=== PATIENT | female | born 1965 | race Caucasian/White ===

== ENCOUNTER 2020-08-14 23:16 | Emergency (ER) | payer BC, SELFPAY ==
[2020-08-14 23:34] VITALS: BP 163/106; PULSE 95; RESP 16; TEMP 36.4; O2SAT 95
[2020-08-14 23:58] LABS: Basophils Percent Auto 0.2 % (0.2-1.2); Eosinophils Percent Auto 0.6 % (0-4.4); Hematocrit 39.4 % (37.0-47.0); Hemoglobin 13.2 g/dL (12.0-15.0); Immature Granulocyte Absolute 0.14 K/mm3 (0.00-0.031); Immature Granulocyte Percent A 2.8 % (0-0.5); Lymphocytes Percent Auto 32.5 % (18.3-44.2); Mean Corpuscular HGB Conc 33.5 g/dl (32-36); Mean Corpuscular Hemoglobin 29.4 pg (26-34); Mean Corpuscular Volume 87.8 fl (80-100); Mean Platelet Volume 8.9 fl (7.4-10.4); Monocytes Absolute Auto 0.6 K/mm3 (0.1-0.6); Monocytes Percent Auto 12.6 % (2.6-8.5); Neutrophils Absolute Auto 2.5 K/mm3 (1.3-6.7); Neutrophils Percent Auto 51.3 % (45.5-73.1); Platelet Count Result 300 k/mm3 (150-375); Red Blood Count 4.49 M/mm3 (4.2-5.4); Red Cell Distribution Width 11.8 % (11.5-14.5); White Blood Count 4.9 K/mm3 (4.5-10.0)
[2020-08-15 00:11] LABS: Alanine Aminotransferase 105 U/L (4-35); Alkaline Phosphatase 148 U/L (38-126); Anion Gap 4 mmol/L (8-16); Aspartate Amino Transferase 84 U/L (14-36); Bilirubin,Total 0.5 mg/dL (0.2-1.3); Blood Urea Nitrogen 15 mg/dL (7-17); Calcium 8.9 mg/dL (8.4-10.2); Carbon Dioxide 31 mmol/L (22-30); Chloride 104 mmol/L (98-107); Estimated CRCL calculation 86 ml/min; Estimated Glomerular Filt Rate > 60; Glucose 107 mg/dL (65-105); Lipase 106 U/L (23-300); Potassium 3.8 mmol/L (3.4-5.0); Sodium 139 mmol/L (137-145)
[2020-08-15 00:13] LABS: Atypical Lymphocytes Present; Platelet Estimate Adequate (Adequate)
[2020-08-15 00:15] LABS: Add Urine Microscopic? YES; Amorphous Sediment Urine Few; Appearance Urine Cloudy (Clear); Bacteria Urine Trace /hpf; Bilirubin Urine Negative (Negative); Blood Urine Negative (Negative); Color Urine Yellow (Yellow); Glucose Urine UA Negative (Negative); Ketones Urine Negative (Negative); Leukocyte Esterase Ur 2+ LEU/UL (Negative); Mucus Urine Heavy /lpf; Nitrate Urine Negative (Negative); Protein Urine 1+ mg/dL (Negative); RBC Urine 21-50 /hpf (0-2); Specific Grav Ur 1.024 (1.001-1.035); Squamous Epithelial Cell Urine Many /hpf (Few)
--- NOTE | 2020-08-15 00:36 | ED.ABDPAIN ---
HPI - Abdominal Pain General Chief Complaint: Abdominal Pain Stated Complaint: nausea/vomiting Time Seen by Provider: 08/15/20 00:28 Source: patient and family Mode of arrival: ambulatory Limitations: no limitations History of Present Illness HPI narrative: 55-year-old with a history of GERD diagnosed with gout approximately 2 weeks ago here with complaints of nausea. Patient states that earlier she was about to vomit noticed little blood in vomitus she is worried that it could be a bleeding ulcer. However at this time no further episodes of nausea or vomiting present. She states that she has been taking ibuprofen for pain and fever. Pertinent past history: none Onset (ago): hour(s) (2) Location: none Related Data Home Medications Medication Instructions Recorded Confirmed cholecalciferol (vitamin D3) 50 50 mcg PO DAILY 01/25/20 05/16/20 mcg (2,000 unit) capsule estradiol 2 mg tablet 2 mg PO DAILY 01/25/20 05/16/20 fexofenadine-pseudoephedrine ER 1 tablet PO DAILY 01/25/20 05/16/20 180 mg-240 mg tablet,ext.release 24 hr melatonin 5 mg capsule mg PO .QHS cap 01/25/20 05/16/20 testosterone 20.25 mg/1.25 gram 1 pump TOPICAL DAILY 01/25/20 05/16/20 (1.62 %) transdermal gel pump vitamins A,C,N-xsco-gioeeg 14,320 1 cap PO BID 01/25/20 05/16/20 unit-226 mg-200 unit capsule ascorbic acid (vitamin C) 1,000 mg 1 g PO DAILY 05/16/20 05/16/20 tablet calcium carbonate 750 1 tablet PO Q2-4H PRN 05/16/20 05/16/20 mg-simethicone 80 mg chewable tablet progesterone micronized 200 mg 300 mg PO ONCE cap 05/16/20 05/16/20 capsule thyroid (pork) 65 mg tablet 72 mg PO DAILY tablet 05/16/20 05/16/20 Allergies Allergy/AdvReac Type Severity Reaction Status Date / Time cefdinir Allergy Unknown Unknown Verified 05/16/20 11:15 codeine Allergy Unknown unknown Verified 05/16/20 11:15 erythromycin base Allergy Unknown Unknown Verified 05/16/20 11:15 Review of Systems Review of Systems: All systems reviewed & are unremarkable except as noted in HPI and below Constitutional: Constitutional: Reports no additional constitutional complaints Eyes: Eyes: Reports no additional eye complaints ENT: Reports system reviewed and no additional complaints, except as documented Cardiovascular: Cardiovascular: Reports no additional cardiovascular complaints Respiratory: Respiratory: Reports cough Gastrointestinal: Gastrointestinal: Reports nausea and Reports vomiting Genitourinary: Genitourinary: Reports no additional female genitourinary complaints PMFSH Past Medical History Medical History Skin cancer Suspected COVID-19 virus infection Vaginal delivery x2 Surgical History Surgical History H/O LEEP History of breast biopsy History of dilation and curettage History of endometrial ablation History of hysterectomy, supracervical Family History Family History Father Diabetes mellitus Family history of thyroid disease Family history of lung cancer Mother Diabetes mellitus Hypertension Social History Social History Smoking status: Never smoker Second hand tobacco smoke exposure: No Alcohol intake: never Substance use: never Substance use type: does not use Gender identity (if verbalized by the patient): Female Spiritual care concerns: Yes ([place]ai) Agree to blood products: Yes Exam Narrative: Exam Narrative: GENERAL: Well-appearing, well-nourished, and in no acute distress. HEAD: Normocephalic, atraumatic. EYES: PERRLA and EOMI. NECK: Supple. CHEST: Clear to auscultation. No respiratory distress. HEART: Regular rate and rhythm. No murmur heard. Normal peripheral pulses. ABDOMEN: Soft, nontender, nondistended, normal active bowel sounds. EXTREMITIES: Normal range of lucinda
[2020-08-15] MEDS: ONDANSETRON HCL ODT 4 MG TABLET PO (01:05)
[2020-08-15 03:01] VITALS: BP 151/78; PULSE 80; RESP 16; O2SAT 100
== END 2020-08-15 03:02 | disposition home or self-care (01) ==
LOC: ANHED 08-15 00:58
PROVIDERS: Emergency Medicine; Emergency Provider Family Medicine; PCP Physician Assistant
DX: U07.1 COVID-19 (principal); R11.2 Nausea with vomiting, unspecified; Z85.828 Personal history of other malignant neoplasm of skin
CPT/HCPCS: 36415; 80053; 81001; 83690; 85025; 86850; 86900; 86901; 87086; 87088; 99283; A9270

== ENCOUNTER → 2021-03-11 13:17 | Outpatient (CLI) | payer BC, SELFPAY ==
--- NOTE | ~2021-03-11 | US_ITS ---
EXAMINATION: US pelvic complete w TV DATE: 03/11/2021 13:57 INDICATION: Unspecified ovarian cysts, unspecified side TECHNIQUE: Multiple transabdominal and endovaginal sonographic images of the pelvis were obtained. COMPARISON: 02/17/2017 FINDINGS: There are changes of supracervical hysterectomy. The ovaries are not visualized however no adnexal abnormality is seen. There is no free fluid in the pelvis. IMPRESSION: 1. No sonographic correlate for the patient's symptoms. Reviewed, dictated and finalized at location B.
== END ==
PROVIDERS: Visit Provider Student in an Organized Health Care Education/Training Program
DX: N83.209 Unspecified ovarian cyst, unspecified side (principal)
CPT/HCPCS: 76830; 76856

== ENCOUNTER 2021-04-18 02:09 | Day surgery (SDC) | payer BC, SELFPAY ==
[2021-04-03 13:37] VITALS: BMI 30.2
[2021-04-18] MEDS: ONDANSETRON INJ 4 MG/2 ML VIAL IV PUSH (11:27)
[2021-04-18] MEDS: LACTATED RINGERS 1,000 ML 150 ML IV CONT (11:29)
[2021-04-18 11:45] VITALS: BP 107/68; PULSE 73; RESP 16; TEMP 35.9; O2SAT 98
--- NOTE | 2021-04-18 11:45 | SUR.PREOP ---
1115 A rapid response was called on Tari when she was walking into the waiting room from her car. She laid down on the ground, face down because her pants are soiled. She said she did not want to fall and was feeling lightheaded. She also stated that her found her passed out in the shower this morning. Patient brought back to pre op room where she was registered, anesthesia at bedside. VSS. IV fluids started. Daughter went home to get fresh clothes and will come back to the hospital.
--- NOTE | 2021-04-18 12:15 | WPDANESEPPF ---
Anes - Initial Pre Proc Eval Procedure: Operation Date: 04/18/21 12:45 Proposed Procedures p Screening Colonoscopy - Peng Richardson MD Date/Time: 04/18/21 12:15 Surgeon: Peng Richardson MD Pre Op Diagnosis: neoplasm screening Patient Data Age: 56 Gender: F Height: 1.57 m Weight: 76.5 kg Last Vital Signs Temp 96.6 F L 04/18/21 11:45 Pulse 73 04/18/21 11:45 Resp 16 04/18/21 11:45 BP 107/68 04/18/21 11:45 Pulse Ox 98 04/18/21 11:45 Allergies Allergy/AdvReac Type Severity Reaction Status Date / Time cefdinir Allergy Unknown Unknown Verified 04/18/21 11:27 codeine Allergy Unknown unknown Verified 04/18/21 11:27 erythromycin base Allergy Unknown Unknown Verified 04/18/21 11:27 Home Medications Medication Instructions Recorded Confirmed Type cholecalciferol (vitamin D3) 50 50 mcg PO DAILY 01/25/20 04/18/21 History mcg (2,000 unit) capsule estradiol 2 mg tablet 2 mg PO DAILY 01/25/20 04/18/21 History fexofenadine-pseudoephedrine ER 1 tablet PO DAILY PRN 01/25/20 04/18/21 History 180 mg-240 mg tablet,ext.release 24 hr melatonin 5 mg capsule 8 mg PO .QHS cap 01/25/20 04/18/21 History testosterone 20.25 mg/1.25 gram 1 pump TOPICAL DAILY 01/25/20 04/18/21 History (1.62 %) transdermal gel pump vitamins A,C,Y-zymr-gykbad 14,320 1 cap PO BID 01/25/20 04/18/21 History unit-226 mg-200 unit capsule progesterone micronized 200 mg 300 mg PO ONCE cap 05/16/20 04/18/21 History capsule thyroid (pork) 65 mg tablet 72 mg PO DAILY tablet 05/16/20 04/18/21 History Patient hx anesthesia problems: none Family hx anesthesia problems: none PMFSH Past Medical History Medical History Skin cancer Suspected COVID-19 virus infection Vaginal delivery x2 Surgical History Surgical History H/O LEEP History of breast biopsy History of dilation and curettage History of endometrial ablation History of hysterectomy, supracervical Family History Family History Father Diabetes mellitus Family history of thyroid disease Family history of lung cancer Mother Diabetes mellitus Hypertension Social History Social History Smoking status: Never smoker Second hand tobacco smoke exposure: No Alcohol intake: never Substance use: never Substance use type: does not use Living arrangements: with family Gender identity (if verbalized by the patient): Female Sexual Orientation (if Verbalized by the Patient): Straight or Heterosexual Spiritual care concerns: No Agree to blood products: Yes Anes - Eval Final PreProcedure Day of Procedure 04/18/21 12:15 Patient weight: overweight Heart: regular rate and rhythm Lungs: clear to auscultation Airway: Mallampati scale class II Neurological: alert and oriented Last oral intake: >/= 8 hours ASA classification: II Emergent: no Anesthetic plan: proceed Anesthesia type and monitoring: general GIVS and standard monitoring Informed Consent: The patient's anesthetic plan and its attendant risks and benefits were discussed with the patient/family/POA. Questions were solicited and answers provided to the satisfaction of the patient/family/POA.
--- NOTE | 2021-04-18 13:25 | PM.HPGS ---
History of Present Illness History of Present Illness Consent: Risks, benefits, and alternatives have been discussed and questions answered. Patient agrees to proceed with procedure. Chief complaint: neoplasm screening Narrative: Tari Pagan is a 56 year old female here for screening colonoscopy Review of Systems Constitutional: Constitutional: Denies headache(s) and Denies weakness Eyes: Eyes: Denies blurry vision ENT: Reports Normal hearing present, Denies headache(s) and Denies neck pain Cardiovascular: Cardiovascular: Denies chest pain and Denies dyspnea Respiratory: Respiratory: Denies dyspnea Gastrointestinal: Gastrointestinal: Reports no additional gastrointestinal complaints Genitourinary: Genitourinary: Denies dysuria Musculoskeletal: Musculoskeletal: Denies neck pain Integumentary/Breasts: Skin/Breast: Denies dry skin Neurologic: Reports Normal hearing present, Denies headache(s) and Denies weakness Psychiatric: Psychiatric: Denies anxiety Endocrine: Endocrine: Denies change in body appearance Hematologic/Lymphatic: Hematologic/Lymphatic: Denies easy bleeding Allergic/Immunologic: Allergic/Immunologic: Denies urticaria PMF Past Medical History Medical History (Updated 04/18/21 @ 13:26 by Peng Richardson MD) Colon cancer screening Skin cancer Suspected COVID-19 virus infection Vaginal delivery x2 Surgical History Surgical History H/O LEEP History of breast biopsy History of dilation and curettage History of endometrial ablation History of hysterectomy, supracervical Family History Family History Father Diabetes mellitus Family history of thyroid disease Family history of lung cancer Mother Diabetes mellitus Hypertension Social History Social History Smoking status: Never smoker Second hand tobacco smoke exposure: No Alcohol intake: never Substance use: never Substance use type: does not use Living arrangements: with family Gender identity (if verbalized by the patient): Female Sexual Orientation (if Verbalized by the Patient): Straight or Heterosexual Spiritual care concerns: No Agree to blood products: Yes Meds Home Medications and Allergies Home Medications Medication Instructions Recorded Confirmed Type cholecalciferol (vitamin D3) 50 50 mcg PO DAILY 01/25/20 04/18/21 History mcg (2,000 unit) capsule estradiol 2 mg tablet 2 mg PO DAILY 01/25/20 04/18/21 History fexofenadine-pseudoephedrine ER 1 tablet PO DAILY PRN 01/25/20 04/18/21 History 180 mg-240 mg tablet,ext.release 24 hr melatonin 5 mg capsule 8 mg PO .QHS cap 01/25/20 04/18/21 History testosterone 20.25 mg/1.25 gram 1 pump TOPICAL DAILY 01/25/20 04/18/21 History (1.62 %) transdermal gel pump vitamins A,C,U-fobg-yxcofz 14,320 1 cap PO BID 01/25/20 04/18/21 History unit-226 mg-200 unit capsule progesterone micronized 200 mg 300 mg PO ONCE cap 05/16/20 04/18/21 History capsule thyroid (pork) 65 mg tablet 72 mg PO DAILY tablet 05/16/20 04/18/21 History Allergies Allergy/AdvReac Type Severity Reaction Status Date / Time cefdinir Allergy Unknown Unknown Verified 04/18/21 11:27 codeine Allergy Unknown unknown Verified 04/18/21 11:27 erythromycin base Allergy Unknown Unknown Verified 04/18/21 11:27 Vital Signs Vital Signs - 24 hr 04/18/21 11:45 Temperature 96.6 F L Pulse Rate 73 Respiratory Rate 16 Blood Pressure 107/68 Pulse Oximetry 98 Exam Const: General: comfortable and no acute distress HENMT: General nose exam: Normal nares present Eyes: General: appearance normal, both eyes and all related structures Neck: Neck: no JVD Resp: Auscultation: clear to auscultation bilaterally Cardio: Rate: regular rate Rhythm: regular rhythm GI: Inspectio
[2021-04-18 13:51] VITALS: BP 140/73; PULSE 87; RESP 22; O2SAT 99
[2021-04-18 14:01] VITALS: BP 132/84; PULSE 77; RESP 23; O2SAT 99
[2021-04-18 14:11] VITALS: BP 128/84; PULSE 72; RESP 19; O2SAT 100
== END 2021-04-18 14:22 | disposition home or self-care (01) ==
PROVIDERS: PCP Physician Assistant; Visit Provider Internal Medicine Gastroenterology
PROC: 0DJD8ZZ Inspection of Lower Intestinal Tract, Via Natural or Artificial Opening Endoscopic (ICD-10-PCS; CPT 45378; principal; 2021-04-18 12:45)
DX: Z12.11 Encounter for screening for malignant neoplasm of colon (principal); K63.5 Polyp of colon; K64.8 Other hemorrhoids
CPT/HCPCS: 45385; 88305; J2405; J2704; J7120

== ENCOUNTER → 2022-07-08 15:26 | Outpatient (CLI) | payer BC, SELFPAY ==
--- NOTE | ~2022-07-08 | XR_ITS ---
XR hip BI 2V w AP pelvis DATE: 07/08/2022 15:56 INDICATION: Right hip pain TECHNIQUE: AP pelvis. AP and lateral views of each hip. COMPARISON: None FINDINGS: The pubic symphysis and sacroiliac joints are intact. No pelvic fracture or bone destructio n is detected. No fracture or dislocation, avascular necrosis or bone destruction of either hip is detected. Hip dima nt spaces are symmetric and relatively preserved. IMPRESSION: No significant abnormality Reviewed, dictated and finalized at location B. CANDLE DIPPER IMPRESSION: No significant abnormality
== END ==
PROVIDERS: PCP Family Medicine; Visit Provider Physician Assistant
DX: M25.551 Pain in right hip (principal); M25.552 Pain in left hip
CPT/HCPCS: 73521

== ENCOUNTER 2022-07-20 12:49 | Outpatient (CLI) | payer BC, SELFPAY ==
--- NOTE | ~2022-07-20 | DEXA_ITS ---
Bone Density Report Name: BRADFORD NOLASCO Age: 57 Sex: Female Ethnicity: White Date of : 1965 Indication: postmenopausal; screening for osteoporosis; parental hip fracture; cancer; hysterectomy; Referring Provider: CHAR MANCILLA Study: Bone densitometry was performed. Exam Date: July 20, 2022 Accession number: [id number] Bone Density: Region BMD T-score Z-score Classification AP Spine(L1-L4) 1.116 0.6 1.8 Normal Femoral Neck (Left) 0.784 -0.6 0.5 Normal Total Hip (Left) 0.955 0.1 0.9 Normal Femoral Neck (Right) 0.794 -0.5 0.6 Normal Total Hip (Right) 0.976 0.3 1.0 Normal Total Hip Mean 0.966 0.2 1.0 Normal World Health Organization criteria for BMD impression classify patients as: Normal (T-score at or above -1.0), Osteopenia (T-score between -1.0 and -2.5), or Osteoporosis (T-score at or below -2.5). 10-year Fracture Risk: FRAX not reported because: All T-scores for Spine Total, Hip Total, Femoral Neck at or above -1.0 Clinical Information Provided by Patient: Parent has had a hip fracture Has used the following medications: Vitamin D Has the following medical conditions: Cancer, Hysterectomy Patient maximum height was 62 Menopause Age: 43 Onset of menses at age 11 Number of children 2 Impression: The patient has normal bone mass. The patient has risk factors, including: parental hip fracture. Discussion: BONE DENSITY IS ABOVE THE MINIMUM DESIRABLE LEVEL AT ALL SKELETAL SITES TESTED. This patient?s bone mineral density is above the minimum desirable level (T-score -1.0 or better) at all sites measured. The patient should follow a healthful lifestyle (good nutrition with adequate calcium and vitamin D, and appropriate weight-bearing exercise). Follow-Up: Consider repeating this study in 5 years or sooner if there is some new clinical indication. Reported by: FRANKY on 07/20/2022 1:13:00 PM. Reviewed, dictated and finalized at location ACody PARRY
== END 2022-07-20 12:50 | disposition home or self-care (01) ==
LOC: ANHIMG 12:50
PROVIDERS: PCP Family Medicine; Visit Provider Obstetrics & Gynecology
DX: Z78.0 Asymptomatic menopausal state (principal)
CPT/HCPCS: 77080

== ENCOUNTER 2023-01-12 15:15 | Outpatient (CLI) | payer BC, SELFPAY ==
--- NOTE | 2023-01-12 15:36 | ECG_ITS ---
Measurements Intervals Jeremiah Rate: 74 P: 59 NE: 167 QRS: 17 QRSD: 97 T: 15 QT: 366 QTc: 406 Interpretive Statements SINUS RHYTHM COMPARED TO ECG 10/21/2018 11:21:55 NO SIGNIFICANT CHANGES Electronically Signed On 01-12-2023 17:12:[address] M.D.
== END 2023-01-12 15:16 | disposition home or self-care (01) ==
LOC: ANHLAB 15:26 → ANHCARD 15:33
PROVIDERS: PCP Family Medicine; Visit Provider Family Medicine
DX: Z01.810 Encounter for preprocedural cardiovascular examination (principal)
CPT/HCPCS: 93005

== ENCOUNTER 2023-12-10 10:28 | Emergency (ER) | payer BC, SELFPAY ==
--- NOTE | ~2023-12-10 | CT_ITS ---
EXAMINATION: CT abdomen pelvis w con DATE: 12/10/2023 11:48 INDICATION: Right upper quadrant abdominal pain. Nausea and vomiting. Fever. TECHNIQUE: Computed tomography (CT) of the abdomen and pelvis was performed with 100 mL Omnipaque 350 intravenous contrast. Automated exposure control and iterative reconstruction technique were employe d. The dose-length product was 699.41 mGy-cm. COMPARISON: CT abdomen and pelvis 10/21/2018 FINDINGS: The visualized portions of the lung bases demonstrate mild atelectasis. No pleural effusion . Cardiomegaly is noted. No pericardial effusion. There is diffuse hepatic steatosis. The gallbladder , spleen, pancreas, and adrenal glands are normal. There are cysts in the kidneys measuring up to 17 mm on the left. There is a 4.1 x 3.2 cm cyst in right kidney with intracapsular rupture and surroundi ng hypoenhancement. The appendix is normal. There are no dilated loops of bowel. There are no patholo gically enlarged lymph nodes. There is no free intraperitoneal fluid. There is severe lumbar spondylo sis and mild thoracic spondylosis. IMPRESSION: 1. Acute pyelonephritis in right kidney with superinfection and intracapsular rupture of a right kidn ey cyst. Reviewed, dictated and finalized at location A. IMPRESSION: 1. Acute pyelonephritis in right kidney with superinfection and intracapsular r upture of a right kidney cyst.
[2023-12-10 10:31] VITALS: BP 140/99; PULSE 77; RESP 18; TEMP 36.5; O2SAT 100
[2023-12-10 10:50] LABS: Basophils Percent Auto 0.3 % (0.2-1.2); Eosinophils Absolute Auto 0.1 K/mm3 (0-0.3); Eosinophils Percent Auto 0.6 % (0-4.4); Hematocrit 43.3 % (37.0-47.0); Hemoglobin 13.6 g/dL (12.0-15.0); Immature Granulocyte Absolute 0.12 K/mm3 (0.00-0.031); Immature Granulocyte Percent A 1.3 % (0-0.5); Lymphocytes Absolute Auto 1.17 K/mm3 (0.9-3.2); Lymphocytes Percent Auto 12.2 % (18.3-44.2); Mean Corpuscular HGB Conc 31.4 g/dl (32-36); Mean Corpuscular Hemoglobin 28.8 pg (26-34); Mean Corpuscular Volume 91.5 fl (80-100); Mean Platelet Volume 10.2 fl (7.4-10.4); Monocytes Absolute Auto 0.9 K/mm3 (0.1-0.6); Monocytes Percent Auto 9.8 % (2.6-8.5); Neutrophils Absolute Auto 7.3 K/mm3 (1.3-6.7); Neutrophils Percent Auto 75.8 % (45.5-73.1); Platelet Count Result 303 k/mm3 (150-375); Red Blood Count 4.73 M/mm3 (4.2-5.4); Red Cell Distribution Width 13.6 % (11.5-14.5); White Blood Count 9.6 K/mm3 (4.5-10.0)
[2023-12-10 10:55] LABS: Alanine Aminotransferase 43 U/L (6-35); Alkaline Phosphatase 117 U/L (38-126); Anion Gap 9 mmol/L (4-12); Aspartate Amino Transferase 36 U/L (14-36); Bilirubin,Total 0.9 mg/dL (0.2-1.3); Blood Urea Nitrogen 15 mg/dL (7-17); Calcium 9.3 mg/dL (8.4-10.2); Carbon Dioxide 24 mmol/L (22-30); Chloride 102 mmol/L (98-107); Estimated CRCL calculation 59 ml/min; Estimated Glomerular Filt Rate > 60; Glucose 100 mg/dL (65-110); Potassium 3.4 mmol/L (3.4-5.0); Sodium 135 mmol/L (137-145)
--- NOTE | 2023-12-10 11:09 | ED.FEMALEGU ---
HPI - Female Genitourinary General Chief complaint: Urogenital-Female Stated complaint: sent from - uti Time Seen by Provider: 12/10/23 10:46 Source: patient Mode of arrival: ambulatory Limitations: no limitations History of Present Illness HPI Narrative: Patient is a 58 y/o female who presents to the ED with c/o nausea, vomiting, fevers. Patient reports she had a [employer] chicken sandwich on Wednesday night and developed nausea, vomiting, diarrhea afterwards. She began having fevers throughout the week, with dull cramping abdominal pain. She has been taking Tylenol and ibuprofen for her fevers. She began feeling slightly better today, but woke up this morning with dark urine and dysuria. She went to Urgent Care, was told her urine appeared infected. Was referred here for further evaluation given presence of abdominal pain. Patient currently complains of pain throughout her right upper abdomen, right flank region. Denies current nausea. Denies hematuria. Denies history of kidney stones. Denies family members w/ similar symptoms. Denies cough or cold symptoms. Related Data Home Medications Medication Instructions Recorded Confirmed cholecalciferol (vitamin D3) 50 50 mcg PO DAILY 01/25/20 09/01/23 mcg (2,000 unit) capsule estradiol 2 mg tablet 2 mg PO DAILY 01/25/20 09/01/23 melatonin 5 mg capsule 8 mg PO .QHS 01/25/20 09/01/23 testosterone (AndroGel) 1 pump topical DAILY 01/25/20 09/01/23 thyroid (pork) 65 mg tablet 72 mg PO DAILY 05/16/20 09/01/23 (Nature-Throid) peg 400-propylene glycol 0.4 %-0.3 1 drp EACH EYE DAILY PRN 11/06/21 09/01/23 % eye drops (Systane (propylene glycol)) progesterone micronized 200 mg 400 mg PO ONCE 09/02/23 capsule vitamin B complex (B 1 tablet PO DAILY 09/02/23 Complex-Vitamin B12 tablet) Allergies Allergy/AdvReac Type Severity Reaction Status Date / Time cefdinir Allergy Unknown Unknown Verified 12/10/23 10:29 codeine Allergy Unknown unknown Verified 12/10/23 10:29 erythromycin base Allergy Unknown Unknown Verified 12/10/23 10:29 Review of Systems Review of Systems: CONSTITUTIONAL: See HPI. ENT: Denies rhinorrhea, congestion, sore throat. CARDIOVASCULAR: Denies chest pain. RESPIRATORY: Denies cough or dyspnea. GASTROINTESTINAL: See HPI. GENITOURINARY: See HPI. MUSCULOSKELETAL: See HPI. All systems reviewed & are unremarkable except as noted in HPI and below PMFSH Past Medical History Medical History Colon cancer screening Hypertension Skin cancer Suspected COVID-19 virus infection Vaginal delivery x2 Surgical History Surgical History H/O LEEP History of breast biopsy History of dilation and curettage History of endometrial ablation History of hysterectomy, supracervical History of skin graft Status post surgical removal of malignant neoplasm of skin Family History Family History Father Diabetes mellitus Family history of thyroid disease Family history of lung cancer Mother Diabetes mellitus Hypertension Social History Social History Smoking status: Never smoker Second hand tobacco smoke exposure: No Alcohol intake: never Substance use: never Substance use type: does not use Lack of Transportation: No Lack of Food: Never True Current Housing: I Have Housing Concerned About Future Housing: No Difficulty Paying Gas/Electric Bills: No Difficulty Paying for Meds: No Currently Unemployed: No Education: High School Diploma/GED Difficulty w/ Childcare or Family Care: No Living arrangements: with family Occupation/Education: other Gender identity (if verbalized by the patient): Female Sexual Orientation (if Verbalized by the Patient): Straight or Heterosexual Spiritu
[2023-12-10] MEDS: SODIUM CHLORIDE 0.9% IV 1,000 ML 999 ML IV CONT ×2 (11:29→14:10)
[2023-12-10 11:34] LABS: Appearance Urine Clear (Clear); Bacteria Urine None Seen /hpf; Bilirubin Urine Negative (Negative); Blood Urine Negative (Negative); Color Urine Yellow (Yellow); Glucose Urine UA Negative (Negative); Ketones Urine Trace mg/dL (Negative); Leukocyte Esterase Ur 1+ LEU/UL (Negative); Need Manual Microscopic Reviewed; Nitrate Urine Negative (Negative); Non Pathogenic Casts 0-2; Protein Urine Negative (Negative); RBC Urine 0-2 /hpf (0-2); Specific Grav Ur 1.011 (1.001-1.035); Squamous Epithelial Cell Urine Occasional /hpf (Few); Urobilinogen Urine 0.2 mg/dL (<2.0); pH Urine 6.5 (5.0-9.0)
[2023-12-10 11:37] LABS: Magnesium 1.8 mg/dL (1.6-2.3)
[2023-12-10 11:44] LABS: Add Urine Microscopic? YES
[2023-12-10 12:02] VITALS: BP 140/99; PULSE 91; RESP 20; O2SAT 100
[2023-12-10 12:13] LABS: Lipase 47 U/L (23-300)
[2023-12-10] MEDS: levoFLOXacin 750 MG/D5W 150 ML 750 MG/150 ML BAG 100 MG IVPB (13:15)
[2023-12-10 13:30] VITALS: TEMP 39.7
[2023-12-10] MEDS: ACETAMINOPHEN 500 MG TABLET 1000 MG PO (13:34)
[2023-12-10 13:36] VITALS: BP 149/57; PULSE 64; RESP 22; O2SAT 98
[2023-12-10] MEDS: ONDANSETRON INJ 4 MG/2 ML VIAL IV PUSH (13:54)
[2023-12-10 13:59] LABS: Influenza A QL RT-PCR Negative (Negative); Influenza B QL RT-PCR Negative (Negative); RSV RNA, RT-PCR Negative (Negative); SARS-CoV-2 RNA PCR Negative (Negative)
[2023-12-10 14:56] VITALS: TEMP 38.3
[2023-12-10 15:58] VITALS: BP 130/79; PULSE 65; RESP 18; O2SAT 99
== END 2023-12-10 15:59 | disposition home or self-care (01) ==
PROVIDERS: Preventive Medicine Aerospace Medicine; Emergency Provider Physician Assistant; PCP Family Medicine
DX: N10 Acute pyelonephritis (principal); N28.1 Cyst of kidney, acquired; Z20.822 Contact with and (suspected) exposure to COVID-19; I10 Essential (primary) hypertension; Z85.828 Personal history of other malignant neoplasm of skin; Z90.710 Acquired absence of both cervix and uterus
CPT/HCPCS: 36415; 74177; 80053; 81001; 83690; 83735; 85025; 87086; 87088; 87637; 96361; 96365; 96375; 99284; A9270; J1956; J2405; J7030; Q9967

== ENCOUNTER 2024-01-17 12:42 | Outpatient (CLI) | payer BC, SELFPAY ==
--- NOTE | ~2024-01-17 | CT_ITS ---
EXAMINATION: CT abdomen wo/w con DATE: 01/17/2024 13:12 INDICATION: Pyelonephritis. TECHNIQUE: Computed tomography (CT) of the abdomen was performed without and with 100 mL Omnipaque 35 0 intravenous contrast. Automated exposure control and iterative reconstruction technique were employ ed. The dose-length product was 827.39 mGy-cm. COMPARISON: CT abdomen and pelvis 12/10/2023 FINDINGS: The visualized portions of the lung bases demonstrate mild atelectasis. No pleural effusion . The heart size is normal. No pericardial effusion. There is diffuse hepatic steatosis. The gallblad faviola, spleen, pancreas, and adrenal glands are normal. There are cysts in the kidneys measuring up to 1.9 cm on the left. There is focal hypoenhancement and volume loss in right kidney. There is a 1 mm s tone in right kidney. There are no dilated loops of bowel. There are no pathologically enlarged lymph nodes. There is no free intraperitoneal fluid. There is severe lumbar spondylosis and mild thoracic spondylosis. IMPRESSION: 1. Pyelonephritis in right kidney with interval improvement. 2. Diffuse hepatic steatosis. Reviewed, dictated and finalized at location E.
[2024-01-17 13:02] LABS: Estimated Glomerular Filt Rate 57
== END 2024-01-17 12:43 ==
LOC: MICIMG 12:44
PROVIDERS: PCP Family Medicine; Visit Provider Urology
DX: N12 Tubulo-interstitial nephritis, not specified as acute or chronic (principal); K76.0 Fatty (change of) liver, not elsewhere classified
CPT/HCPCS: 74170; Q9967

== ENCOUNTER 2024-07-10 07:50 | Outpatient (CLI) | payer BC, SELFPAY ==
--- NOTE | 2024-07-10 08:56 | ECG_ITS ---
Test Date: 2024-07-10 09:12:32 Measurements Intervals [place] Rate: 97 P: 50 MD: 169 QRS: 31 QRSD: 89 T: 30 QT: 330 QTc: 421 Interpretive Statements SINUS RHYTHM WITH SINUS ARRHYTHMIA POSSIBLE ANTERIOR MYOCARDIAL INFARCTION [30 ms Q WAVE IN V3/V4, OR R < 0.2 mV IN V4], OF INDETERMINATE AGE No previous ECG available for comparison Electronically Signed On 07-10-2024 12:54:01 [employer]PER[employer] by Esvin Mcgraw M.D.
[2024-07-10 09:21] LABS: Basophils Percent Auto 0.2 % (0.2-1.2); Eosinophils Absolute Auto 0.1 K/mm3 (0-0.3); Eosinophils Percent Auto 1.4 % (0-4.4); Hematocrit 49.1 % (37.0-47.0); Hemoglobin 16.3 g/dL (12.0-15.0); Immature Granulocyte Absolute 0.08 K/mm3 (0.00-0.031); Immature Granulocyte Percent A 0.9 % (0-0.5); Lymphocytes Absolute Auto 2.51 K/mm3 (0.9-3.2); Lymphocytes Percent Auto 29.6 % (18.3-44.2); Mean Corpuscular HGB Conc 33.2 g/dl (32-36); Mean Corpuscular Hemoglobin 29.9 pg (26-34); Mean Corpuscular Volume 89.9 fl (80-100); Mean Platelet Volume 9.7 fl (7.4-10.4); Monocytes Absolute Auto 0.7 K/mm3 (0.1-0.6); Monocytes Percent Auto 7.7 % (2.6-8.5); Neutrophils Absolute Auto 5.1 K/mm3 (1.3-6.7); Neutrophils Percent Auto 60.2 % (45.5-73.1); Platelet Count Result 388 k/mm3 (150-375); Red Blood Count 5.46 M/mm3 (4.2-5.4); Red Cell Distribution Width 13.2 % (11.5-14.5); White Blood Count 8.5 K/mm3 (4.5-10.0)
[2024-07-10 09:31] LABS: Alanine Aminotransferase 75 U/L (6-35); Albumin Level 4.5 g/dL (3.5-5.1); Alkaline Phosphatase 75 U/L (38-126); Anion Gap 10 mmol/L (4-12); Aspartate Amino Transferase 45 U/L (14-36); Bilirubin,Total 0.5 mg/dL (0.2-1.3); Blood Urea Nitrogen 19 mg/dL (7-17); Calcium 9.8 mg/dL (8.4-10.2); Carbon Dioxide 26 mmol/L (22-30); Chloride 102 mmol/L (98-107); Estimated Glomerular Filt Rate > 60; Glucose 115 mg/dL (65-110); Potassium 3.7 mmol/L (3.4-5.0); Sodium 138 mmol/L (137-145)
[2024-07-10 09:33] LABS: INR 0.9; Partial Thromboplastin Time 26.3 Seconds (22.3-36.8); Prothrombin Time 12.4 Seconds (11.1-14.7)
== END 2024-07-10 07:51 | disposition home or self-care (01) ==
LOC: ANHSURGERY 07:55
PROVIDERS: PCP Family Medicine; Visit Provider Urology
DX: I10 Essential (primary) hypertension (principal)
CPT/HCPCS: 36415; 80053; 85025; 85610; 85730; 86850; 86900; 86901; 93005

== ENCOUNTER 2024-07-17 00:43 | Day surgery (SDC) | payer BC, SELFPAY ==
[2024-07-10 08:02] VITALS: BMI 34.7
--- NOTE | 2024-07-10 08:37 | PC.NURSE ---
Report to the Outpatient Waiting Room, entrance under the green pavilion located off [facility], at time _6AM on date __07/17/24 . Planned Procedure Time: __7:30 AM .? Time changes happen often and if your time is changed the preop area will call you the afternoon before. - You and your visitor will be asked to self-screen and do not enter if you have any COVID symptoms. Please call surgeon if you need to reschedule. - A mask is optional within the hospital at this time. Patients may have clear liquids (water, carbonated beverages, clear teas, apple juice) until 3 hours prior to surgery( 4:30 AM) with a maximum of 20 ounces. - No food from midnight until time of surgery and no smoking. This includes no chewing gum, candy or mints. - Infants may have breast milk until 4 hours before surgery, formula 6 hours prior to surgery. - Children will be allowed to drink immediately following surgery.? If applicable, please bring a bottle or sippy cup to assist with drinking. Juice, water, soda, and popsicles are readily available.? For infants on formula, please bring formula the day of surgery.? Pacifiers are allowed. Take only the following medications with a SIP of water on the morning of surgery: __NONE DO NOT STOP ANY OF YOUR OTHER PRESCRIPTION MEDICATIONS PRIOR TO SURGERY EXCEPT THE FOLLOWING Medications to discontinue per physician _PT STATES HOLD ALL VITAMINS AND SUPPLEMENTS 7 DAYS PRE OP PER DR WOODS Date to take last dose__07/09/24 Please no make-up, nail tanzanian, hairspray, perfume, deodorant, or body powder the day of surgery.? No jewelry (including any body piercings) or valuables the day of surgery, leave them at home.? Please take a shower or bath the night before, or the morning of, surgery with an antibacterial soap.? Wear comfortable, loose fitting clothing.? Children are encouraged to wear pajamas. - Jewelry must be removed prior to entering the operating room.? Rings and piercings that are not removed may be cut off. - The hospital will not accept responsibility for valuables.? - Please leave all valuables, including medications, at home the day of surgery. If you are going home after surgery, a licensed driver starting gate must drive you home.? - NO public transportation without another adult if you receive anesthesia. - We recommend that an adult stay with you for 24 hours following discharge. - We also recommend that you do not drive, make important decision, drink alcoholic beverages, or take any drugs that were not prescribed by your health care provider for at least 24 hours after your discharge time. Follow any additional instructions given to you from your surgeon. VERBAL AND WRITTEN instructions given to _PATIENT and asked if any additional questions and then verbalized understanding. Patient advised to call surgeon office or pre surgery nurse liaison [phone] if any additional questions.
[2024-07-10 08:56] VITALS: BP 139/88; PULSE 91; RESP 18; TEMP 36.7; O2SAT 97
--- NOTE | 2024-07-14 11:20 | PM.IMHP ---
H&P: HPI History of Present Illness Date/Time: 07/14/24 11:20 Chief Complaint: Prolapse and stress incontinence Narrative: Bothersome prolapse. Stress incontinence noted. Would like to have both corrected. History of supracervical hysterectomy Review of Systems Review of Systems: All systems reviewed & are unremarkable except as noted in HPI and below PMFSH Past Medical History Medical History Hypertension Colon cancer screening Suspected COVID-19 virus infection Vaginal delivery x2 Skin cancer Surgical History Surgical History History of skin graft Status post surgical removal of malignant neoplasm of skin H/O LEEP History of dilation and curettage History of breast biopsy History of endometrial ablation History of hysterectomy, supracervical Family History Family History Father Diabetes mellitus Family history of thyroid disease Family history of lung cancer Mother Diabetes mellitus Hypertension Social History Social History Smoking status: Never smoker Second hand tobacco smoke exposure: No Alcohol intake: never Substance use: never Substance use type: does not use Lack of Transportation: No Lack of Food: Never True Current Housing: I Have Housing Concerned About Future Housing: No Difficulty Paying Gas/Electric Bills: No Difficulty Paying for Meds: No Currently Unemployed: No Education: High School Diploma/GED Difficulty w/ Childcare or Family Care: No Living arrangements: with family Occupation/Education: other Gender identity (if verbalized by the patient): Female Sexual Orientation (if Verbalized by the Patient): Straight or Heterosexual Spiritual care concerns: No Agree to blood products: Yes Meds Home Medications and Allergies Home Medications ?Medication ?Instructions ?Recorded ?Confirmed ?Type cholecalciferol (vitamin D3) 50 50 mcg PO DAILY 01/25/20 07/10/24 History mcg (2,000 unit) capsule estradiol 2 mg tablet 2.25 mg PO DAILY 01/25/20 07/10/24 History melatonin 5 mg capsule 5 mg PO .QHS 01/25/20 07/10/24 History testosterone (AndroGel) 1 pump topical DAILY 01/25/20 07/10/24 History thyroid (pork) 65 mg tablet 112.8 mg PO DAILY TAKES FOR 05/16/20 07/10/24 History (Nature-Throid) HORMONE THERAPY peg 400-propylene glycol 0.4 %-0.3 1 drp EACH EYE PRN PRN Dry Eyes 11/06/21 07/10/24 History % eye drops (Systane (propylene glycol)) progesterone micronized 200 mg 400 mg PO HS 09/02/23 07/10/24 History capsule potassium chloride 10 mEq 10 meq PO .twice weekly #90 caps 03/27/24 07/10/24 Rx capsule,extended release hydrochlorothiazide 12.5 mg tablet 12.5 mg PO DAILY #90 tabs 04/05/24 07/10/24 Rx lisinopril 5 mg tablet 5 mg PO DAILY #90 tabs 04/05/24 07/10/24 Rx Lactobacillus rhamnosus GG 10 1 cap PO DAILY 07/10/24 07/10/24 History billion cell capsule (Culturelle) cetirizine 10 mg capsule (Zyrtec) 10 mg PO DAILY 07/10/24 07/10/24 History coQ10 (ubiquinol) 100 mg capsule 100 mg PO DAILY 07/10/24 07/10/24 History (Qunol Donell CoQ10) fluticasone propionate 50 1 spray intranasal PRN PRN Allergy 07/10/24 07/10/24 History mcg/actuation nasal Symptoms spray,suspension (Allergy Relief (fluticasone)) omega-3 fatty acids 1,000 mg PO DAILY 07/10/24 07/10/24 History vitamin B complex 1 cap PO DAILY 07/10/24 07/10/24 History Allergies Allergy/AdvReac Type Severity Reaction Status Date / Time cefdinir Allergy Unknown Jittery Verified 07/10/24 08:05 codeine Allergy Unknown Nausea and Verified 07/10/24 08:05 Vomiting erythromycin base Allergy Unknown Nausea Verified 07/10/24 08:05 Exam Narrative: Urethral hypermobility Loss of apical support to the introitus Assessment and Plan Assessment and plan (1) Cervical stump prolapse: Code(s): N81.85 - Cervical stump prolapse Status: Acute (2) KELLIE (stress urinary incontinence, female): Code(s): N39.3 - Stress incontinence (female) (male) Status: Acute Plan Plan for robotic colpopexy and urethral sling. Risks, benefits, alternatives are outlined in my office chart
[2024-07-17] VITALS (24 sets, daily range): BP systolic 107–149; BP diastolic 67–97; PULSE 72–104; RESP 12–18; TEMP 36.3–37.3; O2SAT 95–100
[2024-07-17] MEDS: LACTATED RINGERS 1,000 ML 30 ML IV CONT ×2 (07:00→10:28)
[2024-07-17] MEDS: SCOPOLAMINE 1 MG PATCH 1 PATCH TRANSDERM (07:00)
--- NOTE | 2024-07-17 07:16 | WPDHPUPDATE1 ---
History and Physical Update Update Date/Time: 07/17/24 07:16 History and Physical has been reviewed, including an updated exam of the patient. There are NO changes in the patient's condition. Risks, benefits, and alternatives have been discussed and questions answered. Patient agrees to proceed with procedure.
--- NOTE | 2024-07-17 07:23 | P.PNAN_ITS ---
Anes - Initial Pre Proc Eval Procedure: Operation Date: 07/17/24 07:30 Proposed Procedures p Robotic Sacrocolpopexy, Urethral Sling - Obdulio Morelos MD Date/Time: 07/17/24 07:23 Surgeon: Obdulio Morelos MD Pre Op Diagnosis: prolapse Patient Data Age: 59 Gender: F Height: 1.56 m Weight: 84.8 kg Last Vital Signs Temp 98.1 F 07/10/24 08:56 Pulse 91 07/10/24 08:56 Resp 18 07/10/24 08:56 BP 139/88 07/10/24 08:56 Pulse Ox 97 07/10/24 08:56 O2 Del Method Room Air 07/10/24 08:56 Allergies Allergy/AdvReac Type Severity Reaction Status Date / Time cefdinir Allergy Unknown Jittery Verified 07/10/24 08:05 codeine Allergy Unknown Nausea and Verified 07/10/24 08:05 Vomiting erythromycin base Allergy Unknown Nausea Verified 07/10/24 08:05 Home Medications ?Medication ?Instructions ?Recorded ?Confirmed ?Type cholecalciferol (vitamin D3) 50 50 mcg PO DAILY 01/25/20 07/10/24 History mcg (2,000 unit) capsule estradiol 2 mg tablet 2.25 mg PO DAILY 01/25/20 07/10/24 History melatonin 5 mg capsule 5 mg PO .QHS 01/25/20 07/10/24 History testosterone (AndroGel) 1 pump topical DAILY 01/25/20 07/10/24 History thyroid (pork) 65 mg tablet 112.8 mg PO DAILY TAKES FOR 05/16/20 07/10/24 History (Nature-Throid) HORMONE THERAPY peg 400-propylene glycol 0.4 %-0.3 1 drp EACH EYE PRN PRN Dry Eyes 11/06/21 07/10/24 History % eye drops (Systane (propylene glycol)) progesterone micronized 200 mg 400 mg PO HS 09/02/23 07/10/24 History capsule potassium chloride 10 mEq 10 meq PO .twice weekly #90 caps 03/27/24 07/10/24 Rx capsule,extended release hydrochlorothiazide 12.5 mg tablet 12.5 mg PO DAILY #90 tabs 04/05/24 07/10/24 Rx lisinopril 5 mg tablet 5 mg PO DAILY #90 tabs 04/05/24 07/10/24 Rx Lactobacillus rhamnosus GG 10 1 cap PO DAILY 07/10/24 07/10/24 History billion cell capsule (Culturelle) cetirizine 10 mg capsule (Zyrtec) 10 mg PO DAILY 07/10/24 07/10/24 History coQ10 (ubiquinol) 100 mg capsule 100 mg PO DAILY 07/10/24 07/10/24 History (Qunol Donell CoQ10) fluticasone propionate 50 1 spray intranasal PRN PRN Allergy 07/10/24 07/10/24 History mcg/actuation nasal Symptoms spray,suspension (Allergy Relief (fluticasone)) omega-3 fatty acids 1,000 mg PO DAILY 07/10/24 07/10/24 History vitamin B complex 1 cap PO DAILY 07/10/24 07/10/24 History Patient hx anesthesia problems: post op nausea/vomiting Family hx anesthesia problems: none Results Review: All pre-operative results and documents have been reviewed as part of the pre- operative evaluation. [facility] Past Medical History Medical History Hypertension Colon cancer screening Suspected COVID-19 virus infection Vaginal delivery x2 Skin cancer Surgical History Surgical History History of skin graft Status post surgical removal of malignant neoplasm of skin H/O LEEP History of dilation and curettage History of breast biopsy History of endometrial ablation History of hysterectomy, supracervical Family History Family History Father Diabetes mellitus Family history of thyroid disease Family history of lung cancer Mother Diabetes mellitus Hypertension Social History Social History Smoking status: Never smoker Second hand tobacco smoke exposure: No Alcohol intake: never Substance use: never Substance use type: does not use Lack of Transportation: No Lack of Food: Never True Current Housing: I Have Housing Concerned About Future Housing: No Difficulty Paying Gas/Electric Bills: No Difficulty Paying for Meds: No Currently Unemployed: No Education: High School Diploma/GED Difficulty w/ Childcare or Family Care: No Living arrangements: with family Occupation/Education: other Gender identity (if verbalized by the patient): Female Sexual Orientation (if Verbalized by the Patient): Straight or Heterosexual Spiritual care concerns: No Agree to blood products: Yes Anes - Eval Final PreProcedure Day of Procedure 07/17/24 07:23 Patient weight: normal and obese Heart: regular rate and rhythm Lungs: clear to auscultation Airway: Mallampati scale class II Neurological: alert and oriented Last oral intake: >/= 8 hours ASA classification: III Emergent: no Anesthetic plan: proceed Anesthesia type and monitoring: general ETT and standard monitoring Results Review: All pre-operative results and documents have been reviewed as part of the pre- operative evaluation. Informed Consent: The patient's anesthetic plan and its attendant risks and benefits were discussed with the patient/family/POA. Questions were solicited and answers provided to the satisfaction of the patient/family/POA.
[2024-07-17] MEDS: metroNIDAZOLE 500 MG/ISO 100ML 500 MG/100 ML BAG 100 MG IVPB ×2 (07:33→17:54)
[2024-07-17] MEDS: BUPIVACAINE/EPINEPHRINE 0.5% 30 ML VIAL INFILTRATE (08:40)
--- NOTE | 2024-07-17 10:18 | W.PM.PROC2 ---
Procedure Note - Detailed Date of Procedure 07/17/24 Pre-op Diagnosis Cervical stump prolapse Stress incontinence Post-op Diagnosis Same Procedure Performed Robotic assisted laparoscopic sacral colpopexy Urethral sling Cystoscopy Surgeon Obdulio Morelos MD Anesthesia General Indications This is a woman with post hysterectomy vaginal vault prolapse as well as stress urinary incontinence. She desires surgical correction. She understands risks of bleeding, infection, diskitis, damage to surrounding organs, damage to the bowel or urinary tract, recurrence of prolapse, dyspareunia, vaginal mesh exposure, urinary tract mesh exposure, obstructive voiding requiring secondary procedure, hip and leg pain, and other perioperative intraoperative and postoperative complications. She is to proceed Findings See below Description of Procedure She was correctly identified. Informed consent obtained. She is brought to the operating room. She was given general anesthesia. She was placed in the lithotomy position. She was given appropriate perioperative antibiotics. She was prepped and draped in a sterile fashion. A time-out performed. I anesthetized the skin 3 fingerbreadths cephalad to the umbilicus. I incised the skin. I located the fascia. I grasped the fascia with Genaro clamps. I incised the fascia sharply and a Vigil type technique. I placed Vicryl sutures for later fascial closure. I placed a midline trocar. Under direct vision placed 2 additional trocars in the right upper quadrant and 2 additional trocars in the left upper quadrant. She was placed in steep Trendelenburg. The robot was docked. I sat at the console. There were adhesions of the colon into the pelvis. These were all lysed sharply. She had very redundant colon and very thick retroperitoneal mesentery and retroperitoneal fat. With the Sizer in the vagina and created a plane on the anterior and posterior vaginal wall for several cm taking great care not to injure the vagina, bladder, or rectum. There was intense scarring on the anterior and posterior vaginal wall from previous supracervical hysterectomy. The cervix could be palpated. I took great care not to injure the vagina, bladder, or rectum. I introduced the mesh into the vagina. I sewed the anterior leaflet of mesh on the anterior vaginal wall and posterior leaf of the mesh on the posterior vaginal wall with several sutures of 2 0 [place] taking great care not to go through and through. I then opened up the peritoneum over the sacral promontory. She had very thick fatty tissues in the retroperitoneal space over top of the sacral promontory. The tissues were also friable. I carried this incision into the cul-de-sac. I freed up the edges for later retroperitonealization of the mesh. I located the anterior longitudinal ligament of the sacrum. I cleaned off any fatty tissues. I then tensioned my mesh appropriately. I did a vaginal exam to ensure prolapse reduction without undue tension. I then did a small Lembert stitch on the distal rectum or I felt there may have been a small serosal abrasion. This was done with a Monocryl stitch. I then sewed the proximal leaflet of mesh onto the ligament with 3 sutures of 2 0 [place]. I then used a 2 0 Monocryl to meticulously retroperitonealized all mesh. I allowed the colon to go back into its normal anatomic location. There is no sign of impingement. He had an was then exited. Fascial sutures were closed. The wounds were all irrigated and closed with 4 O Monocryl and skin glue. She was then repositioned and prepped for urethral sling. She had a small degree of residual rectocele. I elected to not repair this due to the atrophic quality of her posterior vaginal wall tissues. She had excellent apical support and no cystocele. I marked out the inner thigh incisions. I anesthetized the skin and made those incisions. I then anesthetized the anterior vaginal wall over the mid urethra. I made a 1 cm incision. I dissected out laterally taking great care not to injure the urethra vaginal wall. I passed the helical trocars. I did this 1st on the left than on the right from the thigh incision towards the vaginal incision. Sling was connected to the trocars and brought out through the thigh incision. I tensioned the sling appropriately. I cut and removed the plastic sleeves. I then performed cystoscopy. The bladder showed no evidence of surgical artifact or tumor. Bilateral ureteral patency was documented by placing guidewires up both ureters. I cut the excess sling material. I closed incisions with glue. She was awakened and transferred to the PACU in stable condition. Implants Sacral colpopexy mesh Urethral sling Estimated Blood Loss 40 Packing No Pathology None sent Complications No immediate complications Condition Stable Disposition PACU
[2024-07-17] MEDS: fentaNYL CITRATE INJ (*CRX) 100 MCG/2 ML VIAL 25 MCG IV PUSH ×4 (10:49→15:44)
[2024-07-17] MEDS: ARTIFICIAL TEARS OPHTH SOLN 15 ML BOTTLE 1 DROP EACH EYE ×4 (13:35→23:18)
[2024-07-17] MEDS: DICLOFENAC SODIUM 0.1% OPHTH SOLN 2.5 ML BOTTLE 1 DROP EACH EYE (13:40)
[2024-07-17] MEDS: PROPARACAINE HCL 0.5% 15 ML OPHTH SOLN 1 DROP EACH EYE (13:40)
[2024-07-17] MEDS: KCL 20 MEQ/D5/0.45% SOD CHL 1,000 ML 100 ML IV CONT (17:53)
[2024-07-17] MEDS: ACETAMINOPHEN 325 MG TABLET 650 MG PO (18:49)
[2024-07-17] MEDS: KETOROLAC 15 MG/ML VIAL (*BKC) IV PUSH (18:50)
--- NOTE | 2024-07-17 19:40 | OBPPTRN ---
Patient transferred to post room #287 via stretcher. Oriented to unit, room, information board, and admission packet. Patient verbalizes understanding.
[2024-07-17] MEDS: DICLOFENAC SODIUM 0.1% OPHTH SOLN 2.5 ML BOTTLE 1 DROP RIGHT EYE (20:54)
[2024-07-18] MEDS: ACETAMINOPHEN 325 MG TABLET 650 MG PO ×2 (04:27→10:38)
[2024-07-18] MEDS: ARTIFICIAL TEARS OPHTH SOLN 15 ML BOTTLE 1 DROP EACH EYE (04:28)
[2024-07-18] MEDS: KETOROLAC 15 MG/ML VIAL (*BKC) IV PUSH (04:28)
[2024-07-18 04:45] VITALS: BP 128/74; PULSE 88; RESP 20; TEMP 36.8; O2SAT 95
[2024-07-18] MEDS: metroNIDAZOLE 500 MG/ISO 100ML 500 MG/100 ML BAG 100 MG IVPB (05:14)
[2024-07-18 07:45] VITALS: BP 127/68; PULSE 82; RESP 16; TEMP 37.4; O2SAT 98
[2024-07-18] MEDS: ENOXAPARIN 30 MG/0.3 ML SYRINGE SUB-Q (10:31)
[2024-07-18] MEDS: DOCUSATE SODIUM 100 MG CAPSULE PO (10:32)
[2024-07-18] MEDS: LORATADINE 10 MG TABLET PO (10:33)
[2024-07-18] MEDS: hydroCHLOROthiazide 12.5 MG CAPSULE PO (10:33)
[2024-07-18] MEDS: lisinopriL 5 MG TABLET PO (10:33)
[2024-07-18] MEDS: DICLOFENAC SODIUM 0.1% OPHTH SOLN 2.5 ML BOTTLE 1 DROP RIGHT EYE (10:34)
--- OUTSIDE RECORDS SUMMARY | 2024-07-22 10:13 | XMS_ITS | Encounter Summary ---
Author Organization [facility] Address [address] [place] [address] Care Team Providers Care Manager Mba Name Role Phone Ariella Montaño MD Primary Care Provider [phone] Reason for Visit * Reason Comments Surgical Follow-up Encounter Details Date Type Department Care Team (Late st Contact Info) Description 05/05/2023 10:30 AM CDT Office Visit [facility] [address] [facility] [address] [place] [address] Librado Peña MD [address] [facility] [address] [place] [address] Mohs defect of nose (Primary Dx) Social History Tobacco Use Types Packs/Day Years Used Date Smoking Tobacco: Former Smokeless Tobacco: Never Alcohol Use Standard Drinks/Week Comments Never 0 (1 standard drink = 0.6 oz pur e alcohol) AUDIT-C Answer Date Recorded Q1: How often do you have a drink containing alc ohol? Never 05/09/2020 Average Number of Drinks Not on file 020 Frequency of Binge Drinking Not on file 03/2020 Sex and Gender Information Value Date Recorded Sex Assigned at Not on file Gender Identity Not on file Sexual Orientation Not on file documented as of this encounter Progress Notes * Librado Peña MD - 05/05/2023 10:56 AM CDT History of Present Illness: Tari Pagan is a 58 year old female referred by Dr Andrae Chavarria for 4 anticipated Mohs defects of the nose area. She had a previous Mohs/epair of the nasal dorsum 2 years ago with a possible recurrence. 3 additional sites biopsied.. HPI: As above she is now 3 months post op repsair of multiple nasal defects with cheek advancement and forehead flap. She has quesitons about reinnervation and edema. Review of Systems: Comprehensive ROS x 12 was performed and was negative Past Medical History: Diagnosis Date ??? Dry eyes ??? Joint pain ??? Stuffy nose PSH: has a past surgical history that includes hysterectomy (2008); moh's surgery (2006); moh's surgery (2019); moh's surgery (12/31/2022); and moh's surgery (01/27/2023). Current Outpatient Medications Medication Sig Dispense Refill ??? Cholecalciferol (VITAMIN D3) 1.25 MG (34281 UT) capsule Take 1 (one) capsule by mouth every 7 days ??? estradiol (Estrace) 0.1 MG/GM vaginal cream ??? estradiol (ESTRACE) 2 MG tablet Take 2.25 mg by mouth once daily ??? lisinopril (Prinivil; Zestril) 5 MG tablet ??? MELATONIN PO Take 5 mg by mouth once daily ??? Multiple Vitamins-Minerals (PreserVision AREDS 2+Multi Vit) CAPS ??? progesterone 300 mg ERT 300 mg tablet Take 1 (one) tablet by mouth once daily ??? promethazine (Phenergan) 12.5 MG tablet Take 1 (one) tablet by mouth every 4 hours as needed for Nausea/Vomiting 16 tablet 0 ??? testosterone 4 mg/ml cream 4 mg/ml CREA compound Apply to affected area once daily ??? traMADol (Ultram) 50 MG tablet Take 1 (one) tablet by mouth every 6 hours as needed for Pain 12tablet 0 No current facility-administered medications for this visit. Allergies Codeine Social History Tobacco Use ??? Smoking status: Former ??? Smokeless tobacco: Never Vaping Use ??? Vaping Use: Never used Substance Use Topics ??? Alcohol use: Never No family history on file. Physical Exam: Constitutional: Alert, No acute Distress; Well developed/well nourished Neuro:cranial nerves III-XII grossly intact CV/Pulm: Normal respirations and peripheral pulses. Eyes: PERRL, EOMI Face/Skin: All sites improving and maturing. Expected edema of the flap Ears: Right: Normal external Auditory canal Left: Normal external Auditory canal Nose: mild septal deviation Mouth and oropharynx: symmetric tongue mobility, no lesions/masses/ulcers Neck: supple, no lymphadenopathy, no masses Voice: strong MusculoSkeletal: moves all extremities well Assessment and Plan: BCCA of the nasal skin x 4. 3 months post op forehead flap and cheek advancement. Normal healing process. Return in 6 months Total time was 20 minutes. documented in this encounter Plan of Treatment Upcoming Encounters Date Type Department Care Team (Late st Contact Info) Description 10/31/2024 10:00 AM CDT Office Visit [facility] [address] [address] Librado Peña MD [address] [address] documented as of this encounter Visit Diagnoses Diagnosis Mohs defect of nose- Primary Acquired deformity of nose documented in this encounter Care Teams Manager Mba Relationship Specialty Start Date End Date Ariella Montaño MD [address] [place] [address] PCP - General 08/31/21 documented as of this encounter
--- OUTSIDE RECORDS SUMMARY | 2024-07-22 10:13 | XMS_ITS | Encounter Summary ---
Author Organization [facility] Address [address] [facility] [place] [address] Care Team Providers Care Laborer Rags Name Role Phone Ariella Montaño MD Primary Care Provider [phone] Reason for Visit * Reason Comments Follow-up Encounter Details Date Type Department Care Team (Late st Contact Info) Description 11/05/2023 10:00 AM CDT Office Visit [facility] [address] [facility] [address] , [facility] [address] [place] [address] Librado Peña MD [address] [facility] [address] [place] [address] Mohs defect of nose (Primary [...] Progress Notes * Librado Peña MD - 11/05/2023 12:10 PM CDT History of Present Illness: Tari Pagan is a 58 year old female referred by Dr Andrae Chavarria for 4 anticipated Mohs defects of the nose area. She had a previous Mohs/epair of the nasal dorsum 2 years ago with a possible recurrence. 3 additional sites biopsied.. HPI: As above she is now 9 months post op repsair of multiple nasal [...] Refill ??? Cholecalciferol (VITAMIN D3) 1.25 MG (99418 UT) capsule Take 1 (one) capsule by mouth every 7 days ??? estradiol (Estrace) 0.1 MG/GM vaginal cream ??? estradiol (ESTRACE) 2 MG tablet Take 2.25 mg by mouth once daily ??? hydroCHLOROthiazide 12.5 MG ??? lisinopril (Prinivil; Zestril) 5 MG tablet ??? MELATONIN PO Take 5 mg by mouth once daily ??? Multiple Vitamins-Minerals (PreserVision AREDS 2+Multi Vit) CAPS ??? potassium chloride ER (Micro-K) 10 MEQ capsule ??? progesterone 300 mg ERT 300 mg [...] EOMI Face/Skin: All sites improving and maturing. Improving edema of the flap Ears: Right: Normal external Auditory canal Left: Normal external Auditory canal Nose: mild septal deviation Mouth and oropharynx: symmetric tongue mobility, no lesions/masses/ulcers Neck: supple, no lymphadenopathy, no masses Voice: strong MusculoSkeletal: moves all extremities well Assessment and Plan: BCCA of the nasal skin x 4. 9 months post op forehead flap and cheek advancement. Normal healing process. Return in 1 year. Discussed DB. Total time was 20 minutes. documented in this encounter Plan of Treatment Upcoming Encounters Date Type Department Care Team (Late st Contact Info) Description 10/31/2024 10:00 AM CDT Office Visit [facility] [address] [facility] [address] [id number] Librado Peña MD [address] [facility] [address] [place] [address] documented as of this encounter Visit Diagnoses Diagnosis Mohs defect of nose- Primary Acquired deformity of nose documented in this encounter Care Teams Laborer Rags Relationship Specialty Start Date End Date Ariella Montaño MD [address] [place] [address] PCP - General 08/31/21 documented as of this encounter
--- OUTSIDE RECORDS SUMMARY | 2024-07-22 10:13 | XMS_ITS | Encounter Summary ---
Author Organization [facility] Address [address] [facility] [address] Care Team Providers Care Industrial Fabric Cutter Name Role Phone Ariella Montaño MD Primary Care Provider [phone] Encounter Details Date Type Department Care Team (Latest Contact Info) Description 11/05/2023 Travel Social History Tobacco Use Types Packs/Day Years [...] on file documented as of this encounter Plan of Treatment Upcoming Encounters Date Type Department Care Team (Late st Contact Info) Description 10/31/2024 10:00 AM CDT Office Visit [facility] [address] [place] [id number] Librado Peña MD [address] [facility] [address] [place] [address] documented as of this encounter Visit Diagnoses Not on filedocumented in this encounter Care Teams Industrial Fabric Cutter Relationship Specialty Start Date End Date Ariella Montaño MD [address] [place] [address] PCP - General 08/31/21 documented as of this encounter
--- OUTSIDE RECORDS SUMMARY | 2024-07-22 10:13 | XMS_ITS | Clinical Summary ---
Author Organization [facility] Address [address] [place] [address] Care Team Providers Care Weatherization Director Name Role Phone Ariella Montaño MD Primary Care Provider [phone] Source Comments [facility],non-owned Affiliates and Associated Physician Practices is amultiple site organization consisting of ambulatory clinics and hospital sitesin [place], [place], [place] and [place]. This disclosure is being madepursuant to the Care Everywhere program and may not contain all information available regarding this patient. Last updated 18.[facility] Allergies Active Allergy Reactions Criticality Noted Date Comments Codeine Nausea and/or Vomiting 09/08/2010 Medications * Be aware that medications may not be up to date on this document. Alwaysverify current medications with the patient. Medication Sig Dispensed Refills Start Date End Date Status progesterone 300 mg ERT 300 mg tablet Take 1 (one) tablet by mouth once daily Active estradiol (ESTRACE) 2 MG tablet Take 2.25 mg by mouth once daily Active testosterone 4 mg/ml cream 4 mg/ml CREA compound Apply to affected area once daily Active Cholecalciferol (VITAMIN D3) 1.25 MG (32300 UT) capsule Take 1 (one) capsule by mouth every 7 days Active MELATONIN PO Take 5 mg by mouth once daily Active Multiple Vitamins-Minerals (PreserVision AREDS 2+Multi Vit) CAPS Active promethazine (Phenergan) 12.5 MG tablet Take 1 (one) tablet by mouth every 4 hours as needed for Nausea/Vomiting 16 tablet 12/31/2022 Active traMADol (Ultram) 50 MG tabletIndications:Ba kin cell carcinoma of nose Take 1 (one) tablet by mouth every 6 hours as needed for Pain 12 tablet 12/31/2022 Active lisinopril (Prinivil; Zestril) 5 MG tablet 04/12/2023 Active estradiol (Estrace) 0.1 MG/GM vaginal cream 04/13/2023 Active hydroCHLOROthiazide 12.5 MG 10/27/2023 Active potassium chloride ER (Micro-K) 10 MEQ capsule 10/27/2023 Active Active Problems Problem Noted Date Diagnosed Date 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 Diffuse cystic mastopathy 05/16/20122022 Social History Tobacco Use Types Packs/Day Years Used Date Smoking Tobacco: Former Smokeless Tobacco: Never Tobacco Cessation:Counseling Given: Not Answered Alcohol Use Standard Drinks/Week Comments Never 0 [...] on file Sexual Orientation Not on file Last Filed Vital Signs Vital Sign Reading Time Taken Comments Blood Pressure 130/80 12/30/2022 7:18 AM CDT Pulse 72 12/30/2022 7:18 AM CDT Temperature - - Respiratory Rate - - Oxygen Saturation - - Inhaled Oxygen Concentration - - Weight 74.8 kg (165 lb) 05/09/2020 7:36 AM CDT Height 154.9 cm (5' 1 ) 05/09/2020 7:36 AM CDT Body Mass Index 31.18 05/09/2020 7:36 AM CDT Plan of Treatment Upcoming Encounters Date Type Department Care Team (Late st Contact Info) Description 10/31/2024 10:00 AM CDT Office Visit [facility] - ENT [address] , [facility] [address] [place] [address] Librado Peña MD [address] [facility] [address] [place] [address] Health Maintenance Due Date Last Done Comments COLOGUARD (AGES 45-75) - COLON CA SCREENING 1966 COLON MONITORING 1966 COLONOSCOPY - COLON CA SCREENING 1966 CT COLONOGRAPHY - COLON CA SCREENING 1966 Colorectal Cancer Screening 1966 FIT - COLON CA SCREENING 1966 FLEX SIG - COLON CA SCREENING 1966 LIPID TESTING 1966 PAP SMEAR 1966 HIV SCREENING 1981 HEPATITIS C SCREENING 12/30/1983 DTAP/TDAP/TD VACCINES (1 - Tdap) 1985 HEPATITIS B VACCINE (1 of 3 - 19+ 3-dose series) 1985 ZOSTER VACCINE (1 of 2) 01/04/2016 DEPRESSION SCREENING 08/02/2023 COVID-19 VACCINE (2023- season) 2024 INFLUENZA VACCINE (#1) 2024 09/06/2020, 2014 MAMMOGRAM 10/07/2025 10/08/2023, 12/2022, 09/02/2021, Additional history exists HIB VACCINE Aged Out No longer eligi ble based on patient's age to complete this topic HPV VACCINE Aged Out No longer eligi ble based on patient's age to complete this topic MENINGOCOCCAL VACCINE Aged Out No radha devang eligible based on patient's age to complete this topic PNEUMOCOCCAL VACCINE Aged Out No long er eligible based on patient's age to complete this topic Care Teams Weatherization Director Relationship Specialty Start Date End Date Ariella Montaño MD [address] [place] [address] (work) PCP - General 08/31/21
--- OUTSIDE RECORDS SUMMARY | 2024-07-22 10:13 | XMS_ITS | Encounter Summary ---
Author Organization [facility] Address [address] [facility] [place] [address] Care Team Providers Care Beamer Helper Name Role Phone Ariella Montaño MD Primary Care Provider [phone] Encounter Details Date Type Department Care Team (Latest Contact Info) Description 05/05/2023 Travel Social History Tobacco Use Types Packs/Day [...] [address] , [address] [place] [id number] Librado Peña MD [address] [facility] [address] [place] [address] documented as of this encounter Visit Diagnoses Not on filedocumented in this encounter Care Teams Beamer Helper Relationship Specialty Start Date End Date Ariella Montaño MD [address] [place] [address] PCP - General 08/31/21 documented as of this encounter
--- OUTSIDE RECORDS SUMMARY | 2024-07-22 10:13 | XMS_ITS | Referral Summary ---
Author Organization [facility] [employer] Address [address] [facility] [place] [address] Care Team Providers Care Injection Molding Technician Name Role Phone Ariella Montaño MD Primary Care Provider [phone] Source Comments [facility] [employer],non-owned Affiliates and Associated Physician Practices is amultiple site organization consisting of ambulatory clinics and hospital sitesin [place], [place], [place] and [place]. This disclosure is being madepursuant to the Care Everywhere program and may not contain all information available regarding this patient. Last updated 18.[facility] [employer] Allergies Active Allergy Reactions Criticality Noted Date [...] daily Active Cholecalciferol (VITAMIN D3) 1.25 MG (23652 UT) capsule Take 1 (one) capsule by [...] - ENT [address] , [facility] [address] [place] [address] Librado Peña MD [address] [facility] [address] [place] [address] Care Teams Injection Molding Technician Relationship Specialty Start Date End Date Ariella Montaño MD [address] [place] [address] PCP - General 08/31/21
--- OUTSIDE RECORDS SUMMARY | 2024-07-22 10:13 | XMS_ITS | Encounter Summary ---
Author Organization [facility] Address [address] [facility] [place] [address] Care Team Providers Care Production Shift Supervisor Name Role Phone Ariella Montaño MD Primary Care Provider [phone] Reason for Visit * Reason Comments Surgical Follow-up Encounter Details Date Type Department Care Team (Late st Contact Info) Description 02/03/2023 10:30 AM CDT Office Visit [facility] - ENT [address] , [facility] [address] [place] [address] Librado Peña MD [address] [facility] [address] [place] [address] Mohs defect of nose (Primary [...] on file Sexual Orientation Not on file COVID-19 Exposure Response Date Recorded In the last 10 days, have yo u been in contact with someone who was confirmed or suspected to have Coronavirus/COVID-19? No / Unsure 02/03/2023 10:13 AM CDT documented as of this encounter Progress Notes * Librado Peña MD - 02/03/2023 12:22 PM CDT Facial Plastic Surgery Post Operative Note Tari Luna Ej Post-Op: 1 week after undergoing 2nd stage repair of 4 nasal defects, septal cartilage forehead flap . - Pain: 0 - Swelling: Yes - Infection: No - Other: flap 100% viable, sutures removed - Instructed: continue Tx - A/P: Doing well - FU 3-4 months Librado Peña MD documented in this encounter Plan of Treatment Upcoming Encounters Date Type Department Care Team (Late st Contact Info) Description 10/31/2024 10:00 AM CDT Office Visit [facility] - ENT [address] [phone] Librado Peña MD [address] [address] documented as of this encounter Visit Diagnoses Diagnosis Mohs defect of nose- Primary Acquired deformity of nose documented in this encounter Care Teams Production Shift Supervisor Relationship Specialty Start Date End Date Ariella Montaño MD [address] [place] [address] PCP - General 08/31/21 documented as of this encounter
--- OUTSIDE RECORDS SUMMARY | 2024-07-22 10:13 | XMS_ITS | Encounter Summary ---
Author Organization [facility] Address [address] [place] [address] Care Team Providers Care Internal Sales Engineer Name Role Phone Ariella Montaño MD Primary Care Provider [phone] Encounter Details Date Type Department Care Team (Latest Contact Info) Description 01/15/2023 Travel Social History Tobacco Use Types Packs/Day [...] suspected to have Coronavirus/COVID-19? No / Unsure 01/15/2023 10:54 AM CDT documented as of this encounter Plan of Treatment Upcoming Encounters Date Type Department Care Team (Late st Contact Info) Description 10/31/2024 10:00 AM CDT Office Visit [facility] - ENT [address], [address] [place] [address] Librado Peña MD [address] [place] [address] documented as of this encounter Visit Diagnoses Not on filedocumented in this encounter Care Teams Internal Sales Engineer Relationship Specialty Start Date End Date Ariella Montaño MD [address] [place] [address] PCP - General 08/31/21 documented as of this encounter
--- OUTSIDE RECORDS SUMMARY | 2024-07-22 10:13 | XMS_ITS | Encounter Summary ---
Author Organization [facility] Address [address] [place] [address] Care Team Providers Care Club Room Attendant Name Role Phone Ariella Montaño MD Primary Care Provider [phone] Reason for Visit * Reason Onset Date Comments Surgical Follow-up 01/29/2023 Encounter Details Date Type Department Care Team (Late st Contact Info) Description 01/29/2023 Telephone [facility] - ENT [address] [place] [phone] Librado Peña MD [address] [address] Surgical Follow-up Social History Tobacco Use Types Packs/Day Years [...] AM CDT documented as of this encounter Miscellaneous Notes * Telephone Encounter - Any Martínez RN - 01/29/2023 8:12 AM CDT Called pt. To see how pt. Was doing after surgery on wed. No questions or concerns. Postop scheduled for 02/03/2023. documented in this encounter Plan of Treatment Upcoming Encounters Date Type Department Care Team (Late st Contact Info) Description 10/31/2024 10:00 AM CDT Office Visit [facility] - ENT [address] [facility] [facility] [address] [place] [address] Librado Peña MD [address] [facility] [address] [place] [address] documented as of this encounter Visit Diagnoses Not on filedocumented in this encounter Care Teams Club Room Attendant Relationship Specialty Start Date End Date Ariella Montaño MD [address] [place] [address] PCP - General 08/31/21 documented as of this encounter
--- OUTSIDE RECORDS SUMMARY | 2024-07-22 10:13 | XMS_ITS | Patient Health Summary ---
Author Organization [facility] Address [address] [place] [address] Care Team Providers Care [facility] Name Role Phone Ariella Montaño MD Primary Care Provider [phone] Note from [facility],non-owned Affiliates and Associated Physician Practices is amultiple site organization consisting of ambulatory clinics and hospital sitesin [place], [place], [place] and [place]. This disclosure is being madepursuant to the Care Everywhere program and may not contain all information available regarding this patient. Last updated 18.[facility] Allergies * Codeine(Nausea and/or Vomiting) Medications * Be aware that medications may not be up to date on this document. Alwaysverify current medications with the patient. * progesterone 300 mg ERT 300 mg tablet Take 1 (one) tablet by mouth once daily * estradiol (ESTRACE) 2 MG tablet Take 2.25 mg by mouth once daily * testosterone 4 mg/ml cream 4 mg/ml CREA compound Apply to affected area once daily * Cholecalciferol (VITAMIN D3) 1.25 MG (03297 UT) capsule Take 1 (one) capsule by mouth every 7 days * MELATONIN PO Take 5 mg by mouth once daily * Multiple Vitamins-Minerals (PreserVision AREDS 2+Multi Vit) CAPS * promethazine (Phenergan) 12.5 MG tablet(Started 12/31/2022) Take 1 (one) tablet by mouth every 4 hours as needed for Nausea/Vomiting * traMADol (Ultram) 50 MG tablet(Started 12/31/2022) Take 1 (one) tablet by mouth every 6 hours as needed for Pain * lisinopril (Prinivil; Zestril) 5 MG tablet(Started 04/12/2023) * estradiol (Estrace) 0.1 MG/GM vaginal cream(Started 04/13/2023) * hydroCHLOROthiazide 12.5 MG(Started 10/27/2023) * potassium chloride ER (Micro-K) 10 MEQ capsule(Started 10/27/2023) Active Problems Problem Noted Date Diagnosed Date [...] Mass Index 31.18 05/09/2020 7:36 AM CDT Procedures * PA CHMSRG MOHS MG TQ H/N/H/F/G 1ST STAG 5 BLOC(Performed 12/30/2022) Performed for Basal cell carcinoma of skin of nose * PROC MOHS SURG HEAD/NECK/HAND/FEET/BRIGID(Performed 12/30/2022) Performed for Basal cell carcinoma of skin of nose * PA CHMSRG MOHS MG TQ H/N/H/F/G EA ADDL STAG(Performed 12/30/2022) Performed for Basal cell carcinoma of skin of nose * PA CHMSRG MOHS MG TQ H/N/H/F/G 1ST STAG 5 BLOC(Performed 12/30/2022) Performed for Basal cell carcinoma of nose * PA CHMSRG MOHS MG TQ H/N/H/F/G EA ADDL STAG(Performed 12/30/2022) Performed for Basal cell carcinoma of nose * PA CHMSRG MOHS MG TQ H/N/H/F/G 1ST STAG 5 BLOC(Performed 12/30/2022) Performed for Basal cell carcinoma (BCC) of left side of nose * PROC MOHS SURG HEAD/NECK/HAND/FEET/BRIGID(Performed 12/30/2022) Performed for Basal cell carcinoma (BCC) of left side of nose * PA CHMSRG MOHS MG TQ H/N/H/F/G 1ST STAG 5 BLOC(Performed 12/30/2022) Performed for Basal cell carcinoma (BCC) of right ala nasi * PROC MOHS SURG HEAD/NECK/HAND/FEET/BRIGID(Performed 12/30/2022) Performed for Basal cell carcinoma (BCC) of right ala nasi * DERMATOPATHOLOGY(Performed 12/15/2022) * DERMATOPATHOLOGY(Performed 08/04/2022) * PA DESTRUCT BENIGN LESION, 1-14(Performed 07/01/2021) Performed for Keloid * PA CHMSRG MOHS MG TQ H/N/H/F/G 1ST STAG 5 BLOC(Performed 05/09/2020) Performed for Basal cell carcinoma of nose * PA REPR CMPL WND LID,NOS,EAR 2.5-7.5(Performed 05/09/2020) Performed for Basal cell carcinoma of nose * DERMATOPATHOLOGY(Performed 04/10/2020) * DERMATOPATHOLOGY(Performed 11/30/2011) * DERMATOPATHOLOGY(Performed 08/25/2011) Results * PA CHMSRG MOHS MG TQ H/N/H/F/G EA ADDL STAG, PA CHMSRG MOHS MG TQ H/N/H/F/G 1ST STAG 5 BLOC (12/30/2022 10:34 AM CDT) Narrative Shasha Chavarria MD - 12/30/2022 10:34 AM CDT Shasha Chavarria MD ? 12/30/2022 ??4:59 PM Mohs Micrographic Surgery Operative Note Procedure: Mohs micrographic surgery Date of service: 12/30/2022 Location: left nasal bulb Preop diagnosis: Basal cell carcinoma Postop diagnosis: Basal cell carcinoma Mohs AUC score: 8 Number of stages: 2 Preop size: 0.7x0.6 cm Postop size: 1.3x1.5 cm Depth of final defect: muscle Previous dermpath accession #: [id number] Repair type: Dr. Mariana Choe accession #: [id number] Surgeon and Pathologist: Shasha Chavarria MD served as both surgeon and pathologist. No other physician was involved in the cancer removal or pathology interpretation. Assistants: N/A Indications for Mohs Surgery Removal of the patient's tumor is complicated by the following clinical features: Clinical area critical for tissue conservation (Area H: central face, eyelids, eyebrows, nose, lips, chin, ear, periauricular, worship, genitalia, hands, feet, ankles, nail units and areola). Based on my medical judgement, Mohs surgery is the most appropriate treatment for this cancer compared to other treatments. I discussed alternative treatments to Mohs surgery and specifically discussed the risks and benefits of curettage, excision with permanent sections, and foregoing treatment. The rationale for Mohs was explained to the patient and consent was obtained. The risks, benefits and alternatives to therapy were discussed in detail. Specifically, the risks of infection, scarring, bleeding, prolonged wound healing, incomplete removal, allergy to anesthesia, nerve injury and recurrence were addressed. Prior to the procedure, the treatment site was clearly identified and confirmed by the patient. All components of [place] Protocol/PAUSE Rule completed. STAGE I: The patient was placed on the operating table. The cancer was identified and outlined. The entire surgical field was prepped with hibiclens. The surgical site was anesthetized using Lidocaine 1% with epinephrine 1:100,000 buffered with sodium bicarbonate 8.4% in a 1:10 ratio.The area of clinically apparent tumor was debulked with a 2 mm curette. The layer of tissue was then surgically excised using a #15 blade and was then transferred onto a specimen sheet maintaining the orientation of the specimen. Hemostasis was obtained using monopolar electrodesiccation. The wound site was then covered with a dressing while the tissue samples were processed for examination. The specimen was oriented, mapped and divided. Each section was then inked and processed in the Mohs lab using the Mohs protocol and submitted for frozen section. The histopathologic sections were reviewed by the surgeon in conjunction with the reference map. Total blocks: 1 Total slides: 3 Frozen sections were examined by the surgeon and revealed residual tumor. Tumor was indicated in red on the reference map. Cell morphology: basaloid nests with peripheral palisading and abundant mucin (nodular BCC) Pathological pattern: Basal cell carcinoma, nodular Depth of invasion: Dermis Scar tissue: Not Present Perineural invasion: Not Present Inflammation obscuring possible tumor presence: Not Present STAGE II: The patient was prepped in the same fashion as the first stage. Using a similar technique to that described above, a thin layer of tissue was removed from all areas where tumor was visible on the previous stage. The tissue was again oriented, mapped, dyed, and processed as above. Histopathologic sections were reviewed in conjunction with the reference map. Total blocks: 1 Total slides: 2 Frozen sections were examined by the surgeon and revealed: No additional tumor. Histology: No malignant cells seen in the sections examined. No additional histologic findings appreciated. [facility] CLIA # [id number] Mohs Clean Out Driller Helper: MD Dr. Mariana Khan to do repair. Dr. Chavarria performed the entire surgery, and documentation used to initiate this operative report. I entered the information in our [facility] DocFlowsheet with the information provided by Dr. Chavarria on her handwritten, paper format, surgical worksheet, which was then used to initiate the create of this note. Dr. Chavarria then reviewed and edited the note as needed to complete the note. Leighann Odom SLIMER I have reviewed the note, edited it as necessary and performed the entire procedure. Shasha Chavarria MD Payroll Specialist 12/30/2022 Shasha Chavarria MD PROCEDURE/MINOR SURG ICAL ORDERABLES * PA CHMSRG MOHS MG TQ H/N/H/F/G EA ADDL STAG, PA CHMSRG MOHS MG TQ H/N/H/F/G 1ST STAG 5 BLOC (12/30/2022 10:21 AM CDT) Narrative Shasha Chavarria MD - 12/30/2022 10:21 AM CDT Shasha Chavarria MD ? 12/30/2022 ??5:00 PM Mohs Micrographic Surgery Operative Note Procedure: Mohs micrographic surgery Date of service: 12/30/2022 Location: superior Nose Preop diagnosis: Basal cell carcinoma Postop diagnosis: Basal cell carcinoma Mohs AUC score: 8 Number of stages: 2 Preop size: 0.6x0.6 cm Postop size: 1.8x1.5 cm Depth of final defect: dermis Previous dermpath accession #: [id number] Repair type: Dr. Mariana Choe accession #: [id number] Surgeon and Pathologist: Shasha Chavarria MD served as both surgeon and pathologist. No other physician was involved in the cancer removal or pathology interpretation. Assistants: N/A Indications for Mohs Surgery Removal of the patient's tumor is complicated by the following clinical features: Clinical area critical for tissue conservation (Area H: central face, eyelids, eyebrows, nose, lips, chin, ear, periauricular, worship, genitalia, hands, feet, ankles, nail units and areola). Based on my medical judgement, Mohs surgery is the most appropriate treatment for this cancer compared to other treatments. I discussed alternative treatments to Mohs surgery and specifically discussed the risks and benefits of curettage, excision with permanent sections, and foregoing treatment. The rationale for Mohs was explained to the patient and consent was obtained. The risks, benefits and alternatives to therapy were discussed in detail. Specifically, the risks of infection, scarring, bleeding, prolonged wound healing, incomplete removal, allergy to anesthesia, nerve injury and recurrence were addressed. Prior to the procedure, the treatment site was clearly identified and confirmed by the patient. All components of [place] Protocol/PAUSE Rule completed. STAGE I: The patient was placed on the operating table. The cancer was identified and outlined. The entire surgical field was prepped with hibiclens. The surgical site was anesthetized using Lidocaine 1% with epinephrine 1:100,000 buffered with sodium bicarbonate 8.4% in a 1:10 ratio.The area of clinically apparent tumor was debulked with a 2 mm curette. The layer of tissue was then surgically excised using a #15 blade and was then transferred onto a specimen sheet maintaining the orientation of the specimen. Hemostasis was obtained using monopolar electrodesiccation. The wound site was then covered with a dressing while the tissue samples were processed for examination. The specimen was oriented, mapped and divided. Each section was then inked and processed in the Mohs lab using the Mohs protocol and submitted for frozen section. The histopathologic sections were reviewed by the surgeon in conjunction with the reference map. Total blocks: 1 Total slides: 6 Frozen sections were examined by the surgeon and revealed residual tumor. Tumor was indicated in red on the reference map. Cell morphology: basaloid nests with peripheral palisading and abundant mucin (nodular BCC) Pathological pattern: Basal cell carcinoma, nodular Depth of invasion: Dermis Scar tissue: Not Present Perineural invasion: Not Present Inflammation obscuring possible tumor presence: Not Present STAGE II: The patient was prepped in the same fashion as the first stage. Using a similar technique to that described above, a thin layer of tissue was removed from all areas where tumor was visible on the previous stage. The tissue was again oriented, mapped, dyed, and processed as above. Histopathologic sections were reviewed in conjunction with the reference map. Total blocks: 1 Total slides: 2 Frozen sections were examined by the surgeon and revealed: No additional tumor. Histology: No malignant cells seen in the sections examined. No additional histologic findings appreciated. [facility] CLIA # [id number] Mohs Clean Out Driller Helper: MD Dr. Mariana Khan to do repair. Dr. Chavarria performed the entire surgery, and documentation used to initiate this operative report. I entered the information in our [facility] DocFlowsheet with the information provided by Dr. Chavarria on her handwritten, paper format, surgical worksheet, which was then used to initiate the create of this note. Dr. Chavarria then reviewed and edited the note as needed to complete the note. Leighann Odom SLIMER I have reviewed the note, edited it as necessary and performed the entire procedure. Shasha Chavarria MD Payroll Specialist 12/30/2022 Shasha Chavarria MD PROCEDURE/MINOR SURG ICAL ORDERABLES * PA CHMSRG MOHS MG TQ H/N/H/F/G 1ST STAG 5 BLOC (12/30/2022 10:14 AM CDT) Narrative Shasha Chavarria MD - 12/30/2022 10:14 AM CDT Shasha Chavarria MD ? 12/30/2022 ??5:00 PM Mohs Micrographic Surgery Operative Note Procedure: Mohs micrographic surgery Date of service: 12/30/2022 Location: left side of nose Preop diagnosis: Basal cell carcinoma Postop diagnosis: Basal cell carcinoma Mohs AUC score: 8 Number of stages: 1 Preop size: 0.6 x 0.6 cm Postop size: 1.1x1.2 cm Depth of final defect: adipose Previous dermpath accession #: [id number] Repair type: Dr. Mariana Choe accession #: [id number] Surgeon and Pathologist: Shasha Chavarria MD served as both surgeon and pathologist. No other physician was involved in the cancer removal or pathology interpretation. Assistants: N/A Indications for Mohs Surgery Removal of the patient's tumor is complicated by the following clinical features: Clinical area critical for tissue conservation (Area H: central face, eyelids, eyebrows, nose, lips, chin, ear, periauricular, worship, genitalia, hands, feet, ankles, nail units and areola). Based on my medical judgement, Mohs surgery is the most appropriate treatment for this cancer compared to other treatments. I discussed alternative treatments to Mohs surgery and specifically discussed the risks and benefits of curettage, excision with permanent sections, and foregoing treatment. The rationale for Mohs was explained to the patient and consent was obtained. The risks, benefits and alternatives to therapy were discussed in detail. Specifically, the risks of infection, scarring, bleeding, prolonged wound healing, incomplete removal, allergy to anesthesia, nerve injury and recurrence were addressed. Prior to the procedure, the treatment site was clearly identified and confirmed by the patient. All components of [place] Protocol/PAUSE Rule completed. STAGE I: The patient was placed on the operating table. The cancer was identified and outlined. The entire surgical field was prepped with hibiclens. The surgical site was anesthetized using Lidocaine 1% with epinephrine 1:100,000 buffered with sodium bicarbonate 8.4% in a 1:10 ratio.The area of clinically apparent tumor was debulked with a 2 mm curette. The layer of tissue was then surgically excised using a #15 blade and was then transferred onto a specimen sheet maintaining the orientation of the specimen. Hemostasis was obtained using monopolar electrodesiccation. The wound site was then covered with a dressing while the tissue samples were processed for examination. The specimen was oriented, mapped and divided. Each section was then inked and processed in the Mohs lab using the Mohs protocol and submitted for frozen section. The histopathologic sections were reviewed by the surgeon in conjunction with the reference map. Total blocks: 1 Total slides: 3 Frozen sections were examined by the surgeon. No additional tumor was identified. No additional histologic findings appreciated. Cell morphology: N/A. No tumor seen. Pathological pattern: N/A. No tumor seen. Depth of invasion: N/A. No tumor seen. Scar tissue: Not Present Perineural invasion: Not Present Inflammation obscuring possible tumor presence: Not Present [facility] CLIA # [id number] Mohs laboratory clerk: MD Dr. Mariana Khan to do repair. Dr. Chavarria performed the entire surgery, and documentation used to initiate this operative report. I entered the information in our [facility] DocFlowsheet with the information provided by Dr. Chavarria on her handwritten, paper format, surgical worksheet, which was then used to initiate the create of this note. Dr. Chavarria then reviewed and edited the note as needed to complete the note. Leighann Odom SLIMER I have reviewed the note, edited it as necessary and performed the entire procedure. Shasha Chavarria MD Payroll Specialist 12/30/2022 Shasha Chavarria MD PROCEDURE/MINOR SURG ICAL ORDERABLES * PA CHMSRG MOHS MG TQ H/N/H/F/G 1ST STAG 5 BLOC (12/30/2022 10:05 AM CDT) Narrative Shasha Chavarria MD - 12/30/2022 10:05 AM CDT Shasha Chavarria MD ? 12/30/2022 ??5:05 PM Mohs Micrographic Surgery Operative Note Procedure: Mohs micrographic surgery Date of service: 12/30/2022 Location: right ala Preop diagnosis: Basal cell carcinoma Postop diagnosis: Basal cell carcinoma Mohs AUC score: 8 Number of stages: 1 Preop size: 0.3x0.3 cm Postop size: 0.6x0.5 cm Depth of final defect: adipose Previous dermpath accession #: [id number] Repair type: second intent Mohs accession #: [id number] Surgeon and Pathologist: Shasha Chavarria MD served as both surgeon and pathologist. No other physician was involved in the cancer removal or pathology interpretation. Assistants: N/A Indications for Mohs Surgery Removal of the patient's tumor is complicated by the following clinical features: Clinical area critical for tissue conservation (Area H: central face, eyelids, eyebrows, nose, lips, chin, ear, periauricular, worship, genitalia, hands, feet, ankles, nail units and areola). Based on my medical judgement, Mohs surgery is the most appropriate treatment for this cancer compared to other treatments. I discussed alternative treatments to Mohs surgery and specifically discussed the risks and benefits of curettage, excision with permanent sections, and foregoing treatment. The rationale for Mohs was explained to the patient and consent was obtained. The risks, benefits and alternatives to therapy were discussed in detail. Specifically, the risks of infection, scarring, bleeding, prolonged wound healing, incomplete removal, allergy to anesthesia, nerve injury and recurrence were addressed. Prior to the procedure, the treatment site was clearly identified and confirmed by the patient. All components of [place] Protocol/PAUSE Rule completed. STAGE I: The patient was placed on the operating table. The cancer was identified and outlined. The entire surgical field was prepped with hibiclens. The surgical site was anesthetized using Lidocaine 1% with epinephrine 1:100,000 buffered with sodium bicarbonate 8.4% in a 1:10 ratio.The area of clinically apparent tumor was debulked with a 2 mm curette. The layer of tissue was then surgically excised using a #15 blade and was then transferred onto a specimen sheet maintaining the orientation of the specimen. Hemostasis was obtained using monopolar electrodesiccation. The wound site was then covered with a dressing while the tissue samples were processed for examination. The specimen was oriented, mapped and divided. Each section was then inked and processed in the Mohs lab using the Mohs protocol and submitted for frozen section. The histopathologic sections were reviewed by the surgeon in conjunction with the reference map. Total blocks: 1 Total slides: 3 Frozen sections were examined by the surgeon. No additional tumor was identified. No additional histologic findings appreciated. Cell morphology: N/A. No tumor seen. Pathological pattern: N/A. No tumor seen. Depth of invasion: N/A. No tumor seen. Scar tissue: Not Present Perineural invasion: Not Present Inflammation obscuring possible tumor presence: Not Present [facility] CLIA # [id number] [facility] laboratory clerk: MD Dr. Mariana Khan to do repair. Dr. Chavarria performed the entire surgery, and documentation used to initiate this operative report. I entered the information in our [employer] DocFlowsheet with the information provided by Dr. Chavarria on her handwritten, paper format, surgical worksheet, which was then used to initiate the create of this note. Dr. Chavarria then reviewed and edited the note as needed to complete the note. Leighann Odom SLIMER I have reviewed the note, edited it as necessary and performed the entire procedure. Shasha Chavarria MD Payroll Specialist 12/30/2022 Shasha Chavarria MD PROCEDURE/MINOR SURG ICAL ORDERABLES * DERMATOPATHOLOGY (12/15/2022 12:00 AM CDT) Only the most recent of5 resultswithin the time period is included. Case Report Dermatopathology Report ? Case: [id number] ? Authorizing Provider: ??Lance Fan MD ?Collected: ? 12/15/2022 12:00 AM ? Ordering Location: ? [facility] DermPath Lab ? Received: ?12/17/2022 08:12 AM ? Pathologist: ? Ruddy Carbajal MD ? Specimen: ?Skin, left mid lat back ? 3 4:58 PM CDT DERMATOPATHOLOGY LABORATORY Final Diagnosis Specimen A. SKIN, left mid lat back: EPIDERMOID CYST WITH SCAR (L72.0) 3 4:58 PM CDT DERMATOPATHOLOGY LABORATORY Clinical History R/O Neoplasm 3 4:58 PM CDT DERMATOPATHOLOGY LABORATORY Gross Description Specimen A: Received is one formalin filled container labeled with the patient's name and designated left mid lat back. The specimen consists of a punch biopsy measuring [id number] and it is bisected (the tissue appears split in middle, EPI on both ends). Jar 0. 3 4:58 PM CDT DERMATOPATHOLOGY LABORATORY Microscopic Description Specimen A. SKIN, left mid lat back: Within the dermis, there is a space lined by epithelium that resembles normal epidermis and the infundibular portion of the hair follicle. There are fibroblasts and collagen bundles oriented parallel to one another. 3 4:58 PM CDT DERMATOPATHOLOGY LABORATORY Disclaimer An external and internal positive and negative controls are appropriate for the histochemical, immunohistochemical and immunofluorescence stain(s) in this case (if any), except where stated explicitly. The performance characteristics of the stain(s) cited in this report were developed and its performance characteristic determined by the Dermatopathology Laboratory at [facility], directed by Dr. Stacie Carbajal. These tests need not be, and therefore are not, approved by the [place] Food and Drug Administration. The tests are used for clinical purposes. Billing Codes Specimen Charges Stain Charges 70101 1 3 4:58 PM CDT DERMATOPATHOLOGY LABORATORY Embedded Images 3 4:58 PM CDT DERMATOPATHOLOGY LABORATORY Pathology/Cytolog y TISSUE SPECIMEN FROM SKIN / Unknown 12/15/2022 12/17/2022 8:12 AM CDT Lance Fan MD LAB - PATHOLOGY/CYTO LOGY ORDERABLES DERMATOPATHOLOGY LABORATORY [facility] Department of Dermatology [place] [address] [facility], [address]rd Floor [address] [phone] * PA DESTRUCT BENIGN LESION, 1-14 (07/01/2021 5:21 PM MICROELECTRONICS ASSEMBLER) Narrative Shasha Chavarria MD - 07/01/2021 5:21 PM MICROELECTRONICS ASSEMBLER Shasha Chavarria MD ? 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 ??The surgical site was marked and the area was cleansed with iodine and draped in sterile fashion. ??Local anesthesia was obtained using Lidocaine 1% with epinephrine, buffered. ??The area was then dermabraded with the CO2RE laser??to provide an anatomically correct appearance. ??Pressure only??was used to obtain hemostasis and a sterile dressing was placed on the wound. ??Wound care was explained to the patient and the patient will return in 8 weeks for a follow up. ? Procedure: CO2RE Laser ? Pre Procedure: Patient Consultation/Assessment Form completed: ??Yes. ? Patient denies glycolic acid, retinol, or like-products in the last 2 weeks (including khro-byt-kjaalaj products). ?? Patient denies use of Accutane or like medication in the last 6 months. ? Pre-treatment photos were??taken. ? Laser Check: -Pattern Preveiw Test performed. NO missing lines on test paper. ? Procedure: External eyewear used: ??Yes Internal eye orozco used: ??No History of HSV: N Antibiotic prescribed: N ? Treatment Mode Treatment Location [employer] (mJ) [employer] (mJ) Passes % Coverage Size (mm) Handpiece fusion Midline nasal bridge 91.2 70 2 40% 7.1 x 8.1 150 Treatment number: 1 Post Procedure: Discomfort within normal limits: ??Yes Pain level: ??1 ? Post procedure instructions given. Patient to follow up in 2 months HARSH Hernandez I have reviewed the note, edited it as necessary and performed the entire procedure. Shasha Chavarria MD Cheese Packer Shasha Chavarria MD PROCEDURE/MINOR SURG ICAL ORDERABLES * PA REPR CMPL WND LID,NOS,EAR 2.5-7.5, PA CHMSRG MOHS MG TQ H/N/H/F/G 1ST STAG 5 BLOC (05/09/2020 10:20 AM CDT) Narrative Shasha Chavarria MD - 05/09/2020 10:20 AM CDT Shasha Chavarria MD ? 05/10/2020 ??3:57 PM Date of Service: 05/09/2020 Surgery: Mohs micrographic surgery Indication: Tumor location Repair Type: Complex Repair Size: 2.8cm Suture Material: monocryl 5-0;prolene 6-0 Tumor Type: Basal cell carcinoma Location: midline nasal bridge Derm-Path PreOp Size: ??0.4x0.4 cm. PostOp Size: ??1.1x0.8 cm. Mohs Level of Defect: muscle Procedure: The patient was placed supine on the operating table. ??The cancer was identified, outlined with a marker, and verified by the patient. ??The entire surgical field was prepped with iodine. ??The surgical site was anesthetized using Lidocaine 1% with epinephrine 1:100,000 buffered with sodium bicarbonate 8.4% in a 1:10 ratio. The area of clinically apparent tumor was debulked with 2mm curette. The layer of tissue was then surgically excised using a #15 blade and was then transferred onto a specimen sheet maintaining the orientation of the specimen. Hemostasis was obtained using monopolar electrodessication. The wound site was then covered with a dressing while the tissue samples were processed for examination. The excised tissue was transported to the [facility] histology laboratory maintaining the tissue orientation. ??The tissue specimen was relaxed so that the entire surgical margin was in a a single horizontal plane for sectioning andinked for precise mapping. ??A precise reference map was drawn to reflect the sectioning of the specimen, colored inking of the margins, and orientation on the patient. ??The tissue was processed using horizontal sectioning ofthe base and continuous peripheral margins. ??The histopathologic sections were reviewed in conjunction with the reference map. Total blocks: ??1 Total slides: ?? 3 No additional tumor was identified on microscopic examination, therefore Mohs surgery was complete. Reconstruction: Complex Closure Primary Surgeon : Aura Machine Joiner Cementer Surgeon : The patient was taken to the operative suite and placed ?? on the operating room table. ??The defect was identified. ??Appropriate markings were made with a marking pen to plan the repair. ??The area was infiltrated with Lidocaine 1% with epinephrine 1:100,000 buffered with sodium bicarbonate 8.4% in a 1:10 ratio and prepped with Iodine and draped with sterile towels. The wound was debeveled and undermined widely the width of the defect bilaterally and with care to maintain the free margin of the nose. ??Hemostasis was obtained using monopolar electrodessication. Care was taken to orient tension vectors of the closure to minimize distortion of free margins. ??Cones of redundant tissue were then excised within relaxed skin tension lines on both sides of the defect and additional buried sutures were placed in a similar fashion where needed. ??Percutaneous 5-0 Monocryl sutures were carefully placed for maximum eversion and meticulous approximation. Repair Size: ??2.8 cm Sutures Used: ??5-0 Monocryl; 6-0 Prolene. The wound was cleansed with saline and ointment was applied along the wound surface. A sterile pressure dressing was applied. ??Wound care instructions were given verbally and in writing. ??The patient left the operating suite in stable condition. ??Patient was informed that additional refinement of the resulting surgical scar may be used as a second stage of this reconstruction. The Attending surgeon was present for the entire procedure and always immediately available. Erica Fenton MA I have reviewed the note, edited it as necessary and performed the entire procedure. Shasha Chavarria MD Cheese Packer Shasha Chavarria MD PROCEDURE/MINOR SURG ICAL ORDERABLES Care Teams Children'S Tutor Nursery Relationship Specialty Start Date End Date Ariella Montaño MD [address] [place] [address] PCP - General 08/31/21
--- OUTSIDE RECORDS SUMMARY | 2024-07-22 10:13 | XMS_ITS | Encounter Summary ---
Author Organization [facility] Address [address] [place] [address] Care Team Providers Care Digital Color Press Operator Name Role Phone Ariella Montaño MD Primary Care Provider [phone] Encounter Details Date Type Department Care Team (Latest Contact Info) Description 02/03/2023 Travel Social History Tobacco Use Types Packs/Day [...] [address] [place] [address] Librado Peña MD [address] [place] [address] documented as of this encounter Visit Diagnoses Not on filedocumented in this encounter Care Teams Digital Color Press Operator Relationship Specialty Start Date End Date Ariella Montaño MD [address] [place] [address] PCP - General 08/31/21 documented as of this encounter
--- OUTSIDE RECORDS SUMMARY | 2024-07-22 10:14 | XMS_ITS | Encounter Summary ---
Author Organization [facility] Address [address] [place] [address] Care Team Providers Care Criminal Justice Department Chair Name Role Phone Ariella Montaño MD Primary Care Provider [phone] Encounter Details Date Type Department Care Team (Late st Contact Info) Description 04/18/2024 External Device Data [facility] ABSTRACTION Provider, Abstract NO ADDRESS ON FILE Social History Tobacco Use Types Packs/Day Years Used Date Smoking Tobacco: Never Smokeless Tobacco: Never Alcohol Use Standard Drinks/Week Comments Yes 0 (1 standard drink = 0.6 oz pur e alcohol) rarely Sex and Gender Information Value Date Recorded Sex Assigned at Not on file Gender Identity Not on file Sexual Orientation Not on file documented as of this encounter Plan of Treatment Upcoming Encounters Date Type Department Care Team (Late st Contact Info) Description 10/09/2024 1:30 PM CDT Appointment [facility] [address] [place] [id number] Ariella Montaño MD [address] [place] [address] documented as of this encounter Visit Diagnoses Not on filedocumented in this encounter Care Teams Criminal Justice Department Chair Relationship Specialty Start Date End Date Ariella Montaño MD [address] [place] [address] PCP - General Family Practice 08/22/21 documented as of this encounter
--- OUTSIDE RECORDS SUMMARY | 2024-07-22 10:14 | XMS_ITS | Encounter Summary ---
Author Organization [facility] Address [address] [place] [address] Care Team Providers Care Aircraft Engine Dismantler Name Role Phone Amari Jenkins MD Primary Care Provider [phone] Reason for Visit * Reason Comments Consultation BCC midline nasal br idge Encounter Details Date Type Department Care Team (Late st Contact Info) Description 05/02/2020 2:00 PM CDT Cosmetic Visit [facility] [address] [place] [address], [place] [address] Shasha Chavarria MD [address] [place] [address] [address] [facility] [place], [place] [id number] Social History Tobacco Use Types Packs/Day Years Used Date Smoking Tobacco: Never Assessed Sex and Gender Information Value Date Recorded Sex Assigned at Not on file Gender Identity Not on file Sexual Orientation Not on file documented as of this encounter Last Filed Vital Signs Vital Sign Reading Time Taken Comments Blood Pressure 147/96 05/02/2020 2:12 PM CDT Pulse 108 05/02/2020 2:12 PM CDT Temperature - - Respiratory Rate - - Oxygen Saturation - - Inhaled Oxygen Concentration - - Weight 74.8 kg (165 lb) 05/02/2020 2:12 PM CDT Height 154.9 cm (5' 1 ) 05/02/2020 2:12 PM CDT Body Mass Index 31.18 05/02/2020 2:12 PM CDT documented in this encounter Patient Instructions * Patient Instructions* Erica Fenton - 05/02/2020 2:22 PM CDT It was a pleasure to see you today in clinic, Mohs Cutaneous Micrographic Surgery Unit Shasha Chavarria MD Pre-Surgical Instruction Sheet 1. Expect to be here majority of the morning. The Mohs surgical procedure can be an extensive surgery requiring multiple stages. Each stage may take 1-2 hours. 2. You may eat breakfast 3. You may bring snacks or beverages with you 4. Take all normal medications morning of surgery -- unless otherwise indicated by your physician 5. If you have an artificial heart valve, or joint replacement within two years, we will prescribe an antibiotic. Please take one hour prior to surgery. 6. You will need a truck driver salesperson to be with you if your surgical site is close to your eyes. You can get swelling/bruising immediately after surgery and will go home with a big bulky bandage that could obstruct your view of driving safely. 7. Wear comfortable clothing -- preferably a button down shirt or a loose fitted shirt. (to avoid pulling over pressure bandage off when you get home) If your surgery site is on your lower extremity,try wearing loose fitted pants. If your surgery site is on your upper extremity, try wearing a short-sleeve shirt. 8. Bring reading material or other items to help pass time. We do have internet access available ifyou own a laptop, iPad, etc.) 9. Women - do NOT wear make-up. We will be washing it off anyone needing surgery on the face 10. Do NOT stop blood thinning medication unless instructed to do so by your surgeon. This will include: Warfarin, Coumadin, Jantoven, Aspirin, Plavix and Pradaxa. 11. Tylenol is a good alternative to take for headaches and pain, and can be taken throughout your surgery and postoperative recovery. 12. After surgery you will leave with a pressure bandage that needs to stay in place for 48 hours. If your surgery is on your trunk, arms, hands, legs, feet, fingernail or a toenail, please wash thearea with Hibiclens, an bocf-kpo-sbfpejl antiseptic soap, the night before and morning of your surgery. If you have any questions, please feel free to contact us at or [phone] during office hours. documented in this encounter Progress Notes * Shasha Chavarria MD - 05/04/2020 10:34 AM CDT Subjective: Tari Pagan is a 55 year old female who is referred by Dr. barrera for evaluation of a basal cell carcinoma(nodular ) on the midline nasal bridge . The patient reports this lesion present for November 2019. Patient describes lesion as a sore;a bump. Recurrent skin cancer: no Prior Treatment: no No past medical history on file. Current Outpatient Medications Medication Sig Dispense Refill ??? Ascorbic Acid (VITAMIN C PO) ??? Cholecalciferol (VITAMIN D3) 1.25 MG (82981 UT) capsule Take 50,000 Units by mouth every 7 days ??? diazePAM (VALIUM) 10 MG tablet Take 1 tablet by mouth 3 times daily as needed for Anxiety 3 tablet 0 ??? estradiol (ESTRACE) 2 MG tablet Take 2 mg by mouth once daily ??? MELATONIN PO ??? progesterone 300 mg ERT 300 mg tablet Take 300 mg by mouth once daily ??? testosterone 4 mg/ml cream 4 mg/ml CREA compound Apply to affected area once daily ??? THYROID PO 11.2 grain/72mg No current facility-administered medications for this visit. Allergies Allergen Reactions ??? Codeine Nausea and/or Vomiting Pre-Operative Risk Factors: Current Anticoagulants: Patient reports use of antibiotic for prior procedure: Endocarditis / Rheumatic Fever hx: no Vascular graft: no Immunocompromised: no Prosthetic joint: no Congenital heart defect: no Prosthetic heart valve: no Diabetic: no Transplant: no Cardiac devices: Stent: no. Pacemaker: no. Defibrillator: no Transmissible Diseases: HIV no HepC no no Patient reports prior problem with local anesthesia no Photoprotection daily Sun ojeda frequently Tanning bed use former occasional user Tobacco use : no Occupation : Review of Systems Constitutional: negative Eyes: negative Ears, nose, mouth, throat, and face: negative Respiratory: negative Cardiovascular: negative Gastrointestinal: negative Genitourinary:negative Hematologic/lymphatic: negative Neurological: negative Behavioral/Psych: negative Objective: Physical Exam: GENERAL APPEARANCE: oriented, relaxed, well nourished, well groomed and alert SKIN: Detailed skin exam of the face, eyelids, lips, ears, scalp, and neck is normal except for a 0.4x0.4cm pink papule located on the midline nasal bridge . Pathologic Findings: Diagnosis: basal cell carcinoma(nodular ) Assessment and Plan: @ENCDXORDS@ Diagnosis: basal cell carcinoma(nodular ), midline nasal bridge Plan: schedule Mohs Micrographic Surgery Indication for Mohs tumor location Proposed closure: linear versus flap Shasha Chavarria MD documented in this encounter Plan of Treatment Upcoming Encounters Date Type Department Care Team (Late st Contact Info) Description 10/31/2024 10:00 AM CDT Office Visit [facility] [address] [address] [address] Librado Peña MD [address] [address] documented as of this encounter Visit Diagnoses Not on filedocumented in this encounter Care Teams Aircraft Engine Dismantler Relationship Specialty Start Date End Date Amari Jenkins MD [address] [address] PCP - General 04/11/20 08/30/21 documented as of this encounter
--- OUTSIDE RECORDS SUMMARY | 2024-07-22 10:14 | XMS_ITS | Encounter Summary ---
Author Organization [facility] Address [address] [facility] [place] [address] Care Team Providers Care Beauty Culture Teacher Name Role Phone Ariella Montaño MD Primary Care Provider [phone] Reason for Visit * Reason Comments Post-Op Encounter Details Date Type Department Care Team (Late st Contact Info) Description 01/08/2023 9:15 AM CDT Office Visit [facility] [address] , [facility] [address] [place] [address] Librado Peña MD [address] [facility] [address] [place] [address] Mohs defect of nose (Primary [...] suspected to have Coronavirus/COVID-19? No / Unsure 01/08/2023 9:15 AM CDT documented as of this encounter Patient Instructions * Patient Instructions* Stephany Wakefield - 01/08/2023 9:19 AM CDT Thank you for visiting [facility]. We appreciate your confidence in allowing us to participate in your health care. You may receive a survey about your visit with us today. Making our patients happy isn???t just happy talk; it???s ourmission. Please tell us if we made the right impression on you- and how we can serve you better. Please SAVE the information below, it will assist you when it???s time for you to contact us. To MAKE - CHANGE - CANCEL an office appointment If you become ill, need to be seen before your next scheduled appointment, or need to cancel or reschedule an appointment, please call our office at [phone] Wednesday through Wednesday from 8:30 am to4:30 pm. You can also request a routine appointment through your [facility] account. Prescription Refills Contact your pharmacy to request all refills. The pharmacy will need to fax the request to us at . Please allow a minimum of 48-72 hours for your prescription to be completed. Your pharmacy will notify you when your prescription is ready to be picked up. Medical Emergency / After Hours Contact Information If you have a medical emergency, please call 911 or go to the nearest emergency room. For urgent medical calls, which cannot wait until the office opens, please call the medical exchange at and ask the centrifugal drier operator to page the ENT physician operational trainer. *Caller ID blocking service will need to be turned off for your call to be returned. We also specialize in Hearing Aids, Allergy testing, swallowing disorders, voice problems, cancer diagnosis, and so much more. Visit our website at [email or web address] for information about our practice and an interactive health encyclopedia. documented in this encounter Progress Notes * Librado Peña MD - 01/08/2023 1:30 PM CDT Facial Plastic Surgery Post Operative Note Tari Pagan Post-Op: 1 week after undergoing repair of 4 nasal defects, septal cartilage forehead flap . - Pain: 0 - Swelling: Yes - Infection: No - Other: flap 100% viable, sutures, reuben out. 1/2 of skin graft sutures removed - Instructed: clean and lubricate QID, saline spray used liberally. - A/P: Doing well - FU in 1 week Librado Peña MD documented in this encounter Plan of Treatment Upcoming Encounters Date Type Department Care Team (Late st Contact Info) Description 10/31/2024 10:00 AM CDT Office Visit [facility] [address] [phone] Librado Peña MD [address] [facility] [address] [place] [address] documented as of this encounter Visit Diagnoses Diagnosis Mohs defect of nose- Primary Acquired deformity of nose documented in this encounter Care Teams Beauty Culture Teacher Relationship Specialty Start Date End Date Ariella Montaño MD [address] [place] [address] PCP - General 08/31/21 documented as of this encounter
--- OUTSIDE RECORDS SUMMARY | 2024-07-22 10:14 | XMS_ITS | Encounter Summary ---
Author Organization [facility] Address [address] [place] [address] Care Team Providers Care Garden Worker Name Role Phone Ariella Montaño MD Primary Care Provider [phone] Encounter Details Date Type Department Care Team (Latest Contact Info) Description 01/08/2023 Travel Social History Tobacco Use Types Packs/Day [...] [address] [place] [address] Librado Peña MD [address] [place] [address] documented as of this encounter Visit Diagnoses Not on filedocumented in this encounter Care Teams Garden Worker Relationship Specialty Start Date End Date Ariella Montaño MD [address] [place] [address] PCP - General 08/31/21 documented as of this encounter
--- OUTSIDE RECORDS SUMMARY | 2024-07-22 10:14 | XMS_ITS | Encounter Summary ---
Author Organization [facility] Address [address] [facility] [place] [address] Care Team Providers Care Wrap Yarn Sorter Name Role Phone Ariella Montaño MD Primary Care Provider [phone] Reason for Visit * Reason Comments Consultation Encounter Details Date Type Department Care Team (Late st Contact Info) Description 11/11/2022 10:00 AM CDT Office Visit [facility] [address] [facility] [place], [place] [id number] Librado Peña MD [address] [address] Basal cell carcinoma of nose (Primary Dx) Social History Tobacco [...] Progress Notes * Librado Peña MD - 11/11/2022 10:57 AM CDT History of Present Illness: Tari Demarcozohaibjacquelyn is a 57 year old female referred by Dr R Behshad for 4 anticipated Mohs defects of the nose area. She had a previous Mohs/epair of the nasal dorsum 2 years ago with a possible recurrence. 3 additional sites biopsied.. HPI: As above, previous Mohs/repairs of nasal dorsum and right upper cutaneous lip Review of Systems: Comprehensive ROS x 12 was performed and was negative Past Medical History: Diagnosis Date ??? Dry eyes ??? Joint pain ??? Stuffy nose PSH: has a past surgical history that includes hysterectomy (2008); moh's surgery (2006); and moh's surgery (2019). Current Outpatient Medications Medication Sig Dispense Refill ??? Cholecalciferol (VITAMIN D3) 1.25 MG (15162 UT) capsule Take 1 (one) capsule by mouth every 7 days ??? estradiol (ESTRACE) 2 MG tablet Take 2.25 mg by mouth once daily ??? MELATONIN PO Take 5 mg by mouth once daily ??? Multiple Vitamins-Minerals (PreserVision AREDS 2+Multi Vit) CAPS ??? progesterone 300 mg ERT 300 mg tablet Take 1 (one) tablet by mouth once daily ??? testosterone 4 mg/ml cream 4 mg/ml CREA compound Apply to affected area once daily No current facility-administered medications for this visit. [...] and peripheral pulses. Eyes: PERRL, EOMI Face/Skin: 1-1.5cm site at the dorsum poorly defined, smaller lesions of the right alar base, left ala and nose/cheek gutter Ears: Right: Normal external Auditory canal Left: Normal external Auditory canal Nose: mild septal deviation Mouth and oropharynx: symmetric tongue mobility, no lesions/masses/ulcers Neck: supple, no lymphadenopathy, no masses Voice: strong MusculoSkeletal: moves all extremities well Assessment and Plan: BCCA of the nasal skin x 4. Concerns regarding the nasal dorsum as possible recurrence and infiltrative- transposition, dorsal glabellar and forehead flaps techniques discussed. Alar defects probably will need FTSG and left nasal gutter with tissue advancement. The entire procedure was discussed in detail including risks, benefits and alternatives. The patient wishes to proceed. Total time was 30 minutes. documented in this encounter Plan of Treatment Upcoming Encounters Date Type Department Care Team (Late st Contact Info) Description 10/31/2024 10:00 AM CDT Office Visit [facility] [address] , [facility] [address] [place] [address] Librado Peña MD [address] [facility] [address] [place] [address] documented as of this encounter Visit Diagnoses Diagnosis Basal cell carcinoma of nose- Primary Basal cell carcinoma of skin of other and unspecified parts of face documented in this encounter Care Teams Wrap Yarn Sorter Relationship Specialty Start Date End Date Ariella Montaño MD [address] [place] [address] PCP - General 08/31/21 documented as of this encounter
--- OUTSIDE RECORDS SUMMARY | 2024-07-22 10:14 | XMS_ITS | Encounter Summary ---
Author Organization [facility] Address [address] [place] [address] Care Team Providers Care Exotic Dancer Name Role Phone Ariella Montaño MD Primary Care Provider [phone] Encounter Details Date Type Department Care Team (Late Contact Info) Description 08/05/2022 Lab Requisition [facility] [address] [facility] [place] [address] Lance Fan MD [address] [place] [address] Social History Tobacco Use Types Packs/Day Years [...] Encounters Date Type Department Care Team (Late Contact Info) Description 10/31/2024 10:00 AM CDT Office Visit [facility] - ENT [address] [place] [address] Librado Peña MD [address] [place] [address] documented as of this encounter Procedures Procedure Name Priority Date/Time Associated Diagnosis Comments DERMATOPATHOLOGY Routine 08/04/2022 12:[address] documented in this encounter Results * DERMATOPATHOLOGY (08/04/2022 12:[address]) Case Report Dermatopathology Report ? Case: [id number] ? Authorizing Provider: ??Lance Fan MD ?Collected: ? 08/04/2022 12:00 AM ? Ordering Location: ? [facility] ?Received: ?08/05/2022 02:07 PM ? Pathologist: ? Danyell Martinez MD ? Specimens: ?? A) - Skin, right ala ? B) - Skin, left side nose ? C) - Skin, sup nose ? D) - Skin, left nasal bulb ? 3 12:26 PM [facility] Final Diagnosis Specimen A. SKIN, right ala: BASAL CELL CARCINOMA, NODULAR TYPE (C44.311) (see microscopic description) Specimen B. SKIN, left side nose: BASAL CELL CARCINOMA, NODULAR TYPE (C44.311) Specimen C. SKIN, sup nose: BASAL CELL CARCINOMA, NODULAR TYPE (C44.311) Specimen D. SKIN, left nasal bulb: BASAL CELL CARCINOMA, NODULAR TYPE (C44.311) 3 12:26 PM [facility] Clinical History A-D: BCC 3 12:26 PM [facility] Gross Description Specimen A: Received is one formalin filled container labeled with the patient's name and designated right ala. The specimen consists of a shave biopsy measuring 3x3x1 mm. Jar 0. Specimen B: Received is one formalin filled container labeled with the patient's name and designated left side nose. The specimen consists of a shave biopsy measuring 5x3x1 mm. Jar 0. Specimen C: Received is one formalin filled container labeled with the patient's name and designated sup nose. The specimen consists of a shave biopsy measuring 4x3x1 mm. Jar 0. Specimen D: Received is one formalin filled container labeled with the patient's name and designated left nasal bulb. The specimen consists of a shave biopsy measuring 4x3x1 mm. Jar 0. 3 12:26 PM [facility] Microscopic Description Specimen A. SKIN, right ala: Within the dermis there are aggregates of basaloid cells with a high nuclear to cytoplasmic ratio and peripheral palisading. Additional deeper sections were obtained and reviewed. Specimen B. SKIN, left side nose: Within the dermis there are aggregates of basaloid cells with a high nuclear to cytoplasmic ratio and peripheral palisading. Specimen C. SKIN, sup nose: Within the dermis there are aggregates of basaloid cells with a high nuclear to cytoplasmic ratio and peripheral palisading. Specimen D. SKIN, left nasal bulb: Within the dermis there are aggregates of basaloid cells with a high nuclear to cytoplasmic ratio and peripheral palisading. 3 12:26 PM [facility] Disclaimer An external and internal positive and negative controls are appropriate for the histochemical, immunohistochemical and immunofluorescence stain(s) in this case (if any), except where stated explicitly. The performance characteristics of the stain(s) cited in this report were developed and its performance characteristic determined by the Dermatopathology Laboratory at [facility], directed by Dr. Stacie Carbajal. These tests need not be, and therefore are not, approved by the [place] Food and Drug Administration. The tests are used for clinical purposes. Billing Codes Specimen Charges Stain Charges 42713 50278 32215 20771 1 1 1 1 3 12:[address] DERMATOPATHOLOGY LABORATORY Embedded Images 3 12:[address] DERMATOPATHOLOGY LABORATORY Pathology/Cytology TISSUE SPECIMEN FROM SKIN / Unknown 08/04/2022 08/05/2022 2:[address] Miscellaneous samples (specimen) TISSUE SPECIMEN FROM SKIN / Unknown 08/04/2022 08/05/2022 2:[address] Miscellaneous samples (specimen) TISSUE SPECIMEN FROM SKIN / Unknown 08/04/2022 08/05/2022 2:[address] Miscellaneous samples (specimen) TISSUE SPECIMEN FROM SKIN / Unknown 08/04/2022 08/05/2022 2:[address] Lance Fan MD LAB - PATHOLOGY/CYTO LOGY ORDERABLES DERMATOPATHOLOGY LABORATORY [facility] - Department of Dermatology [address], [address] [phone] documented in this encounter Visit Diagnoses Not on filedocumented in this encounter Care Teams Exotic Dancer Relationship Specialty Start Date End Date Bird, Ariella S, MD [address] [place] [address] PCP - General 08/31/21 documented as of this encounter
--- OUTSIDE RECORDS SUMMARY | 2024-07-22 10:14 | XMS_ITS | Encounter Summary ---
Author Organization [facility] Address [address] [facility] [place] [address] Care Team Providers Care Tray Worker Name Role Phone Ariella Montaño MD Primary Care Provider [phone] Encounter Details Date Type Department Care Team (Late Contact Info) Description 12/17/2022 Lab Requisition [facility] [address] [facility] [place] [phone] Lance Fan MD [address] [place], [place] [id number] Social History Tobacco Use Types Packs/Day Years [...] [address] [place] [phone] Librado Peña MD [address] [facility] [address] [place] [address] documented as of this encounter Procedures Procedure Name Priority Date/Time Associated Diagnosis Comments DERMATOPATHOLOGY Routine 12/15/2022 12:0 0 AM CDT documented in this encounter Results * DERMATOPATHOLOGY (12/15/2022 12:00 AM CDT) Case Report Dermatopathology Report ? Case: [id number] ? Authorizing Provider: ??Lance Fan MD ?Collected: ? 12/15/2022 12:00 AM ? Ordering Location: ? [facility] Lab ? Received: ?12/17/2022 08:12 [...] specimen consists of a punch biopsy measuring [id number] and it is bisected (the tissue appears [...] characteristic determined by the Dermatopathology Laboratory at [facility], directed by Dr. Stacie Carbajal. These tests need not be, and therefore are not, approved by the [place] Food and Drug Administration. The tests are used for clinical purposes. Billing Codes Specimen Charges Stain Charges 83147 1 3 4:58 PM CDT DERMATOPATHOLOGY LABORATORY Embedded Images 3 4:58 PM CDT DERMATOPATHOLOGY LABORATORY Pathology/Cytolog y TISSUE SPECIMEN FROM SKIN / Unknown 12/15/2022 12/17/2022 8:12 AM CDT Lance Fan MD LAB - PATHOLOGY/CYTO LOGY ORDERABLES DERMATOPATHOLOGY LABORATORY [facility] - Department of Dermatology [facility] Medicine [address] [place] [address], [address] [phone] documented in this encounter Visit Diagnoses Not on filedocumented in this encounter Care Teams Tray Worker Relationship Specialty Start Date End Date Ariella Montaño MD [address] [place] [address] PCP - General 08/31/21 documented as of this encounter
--- OUTSIDE RECORDS SUMMARY | 2024-07-22 10:14 | XMS_ITS | Encounter Summary ---
Author Organization [facility] Address [address] [place] [address] Care Team Providers Care Field Services Manager Name Role Phone Ariella Montaño MD Primary Care Provider Encounter Details Date Type Department Care Team (Late st Contact Info) Description 05/16/2024 External Device Data STL ABSTRACTION Provider, Abstract [...] Info) Description 10/09/2024 1:30 PM CDT Appointment [facility] [address] [place] [phone] Ariella Montaño MD [address] [place] [address] documented as of this encounter Visit Diagnoses Not on filedocumented in this encounter Care Teams Field Services Manager Relationship Specialty Start Date End Date Ariella Montaño MD [address] [place] [address] PCP - General Family Practice 08/22/21 documented as of this encounter
--- OUTSIDE RECORDS SUMMARY | 2024-07-22 10:14 | XMS_ITS | Encounter Summary ---
Author Organization [facility] Address [address] [facility] [place] [address] Care Team Providers Care Public Health Nurse Name Role Phone Ariella Montaño MD Primary Care Provider [phone] Encounter Details Date Type Department Care Team (Latest Contact Info) Description 12/30/2022 Travel Social History Tobacco Use Types Packs/Day [...] suspected to have Coronavirus/COVID-19? No / Unsure 12/30/2022 7:02 AM CDT documented as of this encounter Plan of Treatment Upcoming Encounters Date Type Department Care Team (Late st Contact Info) Description 10/31/2024 10:00 AM CDT Office Visit [facility] - ENT [address] [place] [address] Librado Peña MD [address] [place] [address] documented as of this encounter Visit Diagnoses Not on filedocumented in this encounter Care Teams Public Health Nurse Relationship Specialty Start Date End Date Ariella Montaño MD [address] [place] [address] PCP - General 08/31/21 documented as of this encounter
--- OUTSIDE RECORDS SUMMARY | 2024-07-22 10:14 | XMS_ITS | Clinical Summary ---
Author Organization [facility] Address [address] [place] [address] Phone Care Team Providers Care Butt Welder Name Role Phone Ariella Montaño MD Primary Care Provider [phone] Allergies Active Allergy Reactions Criticality Noted Date Comments Codeine Nausea and Vomiting Low 09/08/2010 Medications Medication Sig Dispensed Refills Start Date End Date Status estradiol (ESTRACE) 1 mg tablet Take 1 mg by mouth daily. Active flu vaccine quadrivalent 2019-, 6 mo+,,PF, (Flulaval Quad [id number], PF,) 60 mcg (15 mcg x 4)/0.5 mL Syringe syringe TO BE ADMINISTERED BY A PHARMACIST 0.5 mL 09/06/2020 Active Active Problems Patient Care Coordination No te Formatting of this note migh t be different from the original. Primary Care: Amari Jenkins MD Referring Provider: Yulissa Bunn MD [address] [facility] [address] [place] [address] Other: Dr Amna Glez Problem Noted Date Diagnosed Date Diffuse cystic mastopathy 05/16/2012 Resolved Problems Problem Noted Date Diagnosed Date Resolved Date Abnormal mammogram 09/08/2010 6 Encounters Date Type Department Care Team Description 07/12/2024 Refill [facility] Primary Care [address] [place] [address] Connie Bull PA 05/31/2024 External Device Data STL ABSTRACTION Provider, Abstract 05/16/2024 External Device Data STL ABSTRACTION Provider, Abstract from Last 3 Months Immunizations Name Administration Dates Next Due INFLUENZA VACCINE QUADRIVALENT 3 YR UP PF IM 12/2014 INFLUENZA VACCINE QUADRIVALENT 6 MOS UP IM 09/06 Family History Medical History Relation Name Comments Breast Cancer Maternal Aunt 1 age 40 or 5 0s Cancer Maternal Aunt 2 x2 additiona l aunts Cancer Paternal Aunt Relation Name Status Comments Maternal Aunt 1 Maternal Aunt 2 Paternal Aunt Social History Tobacco Use Types Packs/Day Years Used Date Smoking Tobacco: Never Smokeless Tobacco: Never Tobacco Cessation:Counseling Given: No Alcohol Use Standard Drinks/Week Comments Yes 0 (1 standard drink = 0.6 oz pur e alcohol) rarely Sex and Gender Information Value Date Recorded Sex Assigned at Not on file Gender Identity Not on file Sexual Orientation Not on file Last Filed Vital Signs Vital Sign Reading Time Taken Comments Blood Pressure 114/73 06/08/2016 12:48 PM COMMERCIAL CREDIT SPECIALIST Pulse 68 06/08/2016 12:48 PM COMMERCIAL CREDIT SPECIALIST Temperature - - Respiratory Rate - - Oxygen Saturation - - Inhaled Oxygen Concentration - - Weight 78.8 kg (173 lb 12.8 oz) 016 12:48 PM COMMERCIAL CREDIT SPECIALIST Height 154.9 cm (5' 1 ) 06/08/2016 12:4 8 PM COMMERCIAL CREDIT SPECIALIST Body Mass Index 32.84 06/08/2016 12:48 PM COMMERCIAL CREDIT SPECIALIST Plan of Treatment Upcoming Encounters Date Type Department Care Team (Late st Contact Info) Description 10/09/2024 1:30 PM CDT Appointment [facility] [address] [place] [phone] Ariella Montaño MD [address] [place] [address] Health Maintenance Due Date Last Done Comments DTAP/TDAP/TD VACCINES (1 - Tdap) 1985 HEPATITIS B VACCINES (1 of 3 - 19+ 3-dose series) 1985 CERVICAL CANCER SCREENING 01/04/1996 COLORECTAL SCREENING 2011 Colorectal Cancer Screening 2011 FIT-DNA Q 3 years 2011 FIT/FOBT Q 1 year 2011 Flex Sig/CT Colonography Q 5 years 2011 ZOSTER VACCINE (1 of 2) 01/04/2016 INFLUENZA VACCINE (#1) 2024 09/06/2020, 2014 BREAST CANCER SCREENING 10/07/2024 10/08/19 24, 09/07/2022, 09/02/2021, Additional history exists PNEUMOCOCCAL VACCINE 0-64 YEARS Aged Out No longer eligible based on patient's age to complete this topic Procedures Procedure Name Priority Date/Time Associated Diagnosis Comments MAMMO 3D ADÁN SCREEN BILAT W OR WO CAD Routine 10/08/2023 11:12 AM COMMERCIAL CREDIT SPECIALIST Visit for screening mammogram from Last 3 Months or Most Recently Relevant to Health Maintenance Results * MAMMO 3D ADÁN SCREEN BILAT W OR WO CAD (10/08/2023 11:12 AM COMMERCIAL CREDIT SPECIALIST) Anatomical Region Laterality Modality Breast Bilateral Mammography 10/08/2023 11:1 2 AM COMMERCIAL CREDIT SPECIALIST Impressions 10/08/2023 1:43 PM COMMERCIAL CREDIT SPECIALIST IMPRESSION: No suspicious findings to suggest malignancy in either breast. Annual mammography is recommended. ?? OVERALL FINAL ASSESSMENT: ??BI-RADS CATEGORY 2: Benign findings Narrative 10/08/2023 1:43 PM COMMERCIAL CREDIT SPECIALIST BILATERAL SCREENING DIGITAL MAMMOGRAM WITH 3D TOMOSYNTHESIS AND CAD DATE: 10/08/2023 11:12 AM HISTORY: Routine screening. DICTATION LOCATION: ??[facility] TECHNIQUE: Full-field digital craniocaudal and mediolateral oblique projections of both breasts were obtained. Low-dose full-field digital breast tomosynthesis examination was performed with 2D and 3D acquisitions. Examination is read in conjunction with computer aided detection. COMPARISON: 09/07/2022 and older. BREAST COMPOSITION: The breasts are heterogeneously dense, which may obscure small masses. FINDINGS: ?? No suspicious mass, suspicious microcalcifications, or architectural distortion is identified in either breast. Post surgical changes in the upper, slightly inner left breast are redemonstrated. Biopsy clip in the outer central right breast is again noted. Computer aided detection was used in the interpretation of this examination. ?? Procedure Note Guadalupe Sánchez MD - 10/08/2023 BILATERAL SCREENING DIGITAL MAMMOGRAM WITH 3D TOMOSYNTHESIS AND CAD DATE: 10/08/2023 11:12 AM HISTORY: Routine screening. DICTATION LOCATION: [facility] TECHNIQUE: Full-field digital craniocaudal and mediolateral oblique projections of both breasts were obtained. Low-dose full-field digital breast tomosynthesis examination was performed with 2D and 3D acquisitions. Examination is read in conjunction with computer aided detection. COMPARISON: 09/07/2022 and older. BREAST COMPOSITION: The breasts are heterogeneously dense, which may obscure small masses. FINDINGS: No suspicious mass, suspicious microcalcifications, or architectural distortion is identified in either breast. Post surgical changes in the upper, slightly inner left breast are redemonstrated. Biopsy clip in the outer central right breast is again noted. Computer aided detection was used in the interpretation of this examination. IMPRESSION: No suspicious findings to suggest malignancy in either breast. Annual mammography is recommended. OVERALL FINAL ASSESSMENT: BI-RADS CATEGORY 2: Benign findings Ariella Montaño MD MAMMO ORDERABLES from Last 3 Months or Most Recently Relevant to Health Maintenance Care Teams Butt Welder Relationship Specialty Start Date End Date Ariella Montaño MD [address] [place] [address] PCP - General Family Practice 08/22/21
--- OUTSIDE RECORDS SUMMARY | 2024-07-22 10:14 | XMS_ITS | Encounter Summary ---
Author Organization [facility] Address [address] [facility] [place] [address] Care Team Providers Care Inventory Control Clerk Name Role Phone Ariella Montaño MD Primary Care Provider [phone] Encounter Details Date Type Department Care Team (Late st Contact Info) Description 01/05/2023 Orders Only [facility] - ENT [address] [place] [address] Librado Peña MD [address] [address] Social History Tobacco Use Types Packs/Day Years [...] suspected to have Coronavirus/COVID-19? No / Unsure 01/01/2023 10:07 AM CDT documented as of this encounter Progress Notes * Any Martínez, MIHIR - 01/05/2023 3:00 PM CDT Pt. Had tramadol and promethazine from previous surgery. Only ordered Keflex. documented in this encounter Plan of Treatment Upcoming Encounters Date Type Department Care Team (Late st Contact Info) Description 10/31/2024 10:00 AM CDT Office Visit [facility] - ENT [address] [facility] [address] [place] [address] Librado Peña MD [address] [facility] [address] [place] [address] documented as of this encounter Visit Diagnoses Not on filedocumented in this encounter Care Teams Inventory Control Clerk Relationship Specialty Start Date End Date Ariella Montaño MD [address] [place] [address] PCP - General 08/31/21 documented as of this encounter
--- OUTSIDE RECORDS SUMMARY | 2024-07-22 10:14 | XMS_ITS | Encounter Summary ---
Author Organization [facility] Address [address] [facility] [place] [address] Care Team Providers Care Marketing Automation Analyst Name Role Phone Amari Jenkins MD Primary Care Provider [phone] Ariella Montaño MD Primary Care Provider [phone] Encounter Details Date Type Department Care Team (Late Contact Info) Description 04/11/2020 Lab Requisition [facility] [address] [facility], [place] [address] Lance Fan MD [address] [place] [address] Social History Tobacco Use Types [...] - ENT [address] [phone] Librado Peña MD [address] [facility] [address] [place] [address] documented as of this encounter Procedures Procedure Name Priority Date/Time Associated Diagnosis Comments DERMATOPATHOLOGY Routine 04/10/2020 12:0 0 AM CDT documented in this encounter Results * DERMATOPATHOLOGY (04/10/2020 12:00 AM CDT) Case Report Dermatopathology Report ? Case: [id number] ? Authorizing Provider: ??Lance Fan MD ?Collected: ? 04/10/2020 12:00 AM ? Ordering Location: ? [facility] DermPath Lab ?Received: ?04/11/2020 11:17 AM ? Pathologist: ? Ruddy Carbajal MD ? Specimen: ?Skin, midline nasal bridge ? 0 1:26 PM CDT DERMATOPATHOLOGY LABORATORY Final Diagnosis Specimen A. SKIN, midline nasal bridge: BASAL CELL CARCINOMA, NODULAR TYPE (C44.311) 0 1:26 PM CDT DERMATOPATHOLOGY LABORATORY Clinical History R/O BCC. 0 1:26 PM CDT DERMATOPATHOLOGY LABORATORY Gross Description Specimen A: Received is one formalin filled container labeled with the patient's name and designated midline nasal bridge. The specimen consists of a shave biopsy measuring [id number]. Jar 0. 0 1:26 PM CDT DERMATOPATHOLOGY LABORATORY Microscopic Description Specimen A. SKIN, midline nasal bridge: Within the dermis there are aggregates of basaloid cells with a high nuclear to cytoplasmic ratio and peripheral palisading. 0 1:26 PM CDT DERMATOPATHOLOGY LABORATORY Disclaimer An external and internal positive and negative controls are appropriate for the histochemical, immunohistochemical and immunofluorescence stain(s) in this case (if any), except where stated explicitly. The performance characteristics of the stain(s) cited in this report were developed and its performance characteristic determined by the Dermatopathology Laboratory at [facility], directed by Dr. Stacie Carbajal. These tests need not be, and therefore are not, approved by the [place] Food and Drug Administration. The tests are used for clinical purposes. Billing Codes Specimen Charges Stain Charges 81544 1 0 1:26 PM CDT DERMATOPATHOLOGY LABORATORY Embedded Images 0 1:26 PM CDT DERMATOPATHOLOGY LABORATORY Pathology/Cytolog y TISSUE SPECIMEN FROM SKIN / Unknown 04/10/2020 04/11/2020 11:17 AM CDT Lance Fan MD LAB - PATHOLOGY/CYTO LOGY ORDERABLES DERMATOPATHOLOGY LABORATORY [facility] - Department of Dermatology [facility] Medicine [address] [place] [address], [address] [phone] documented in this encounter Visit Diagnoses Not on filedocumented in this encounter Care Teams Marketing Automation Analyst Relationship Specialty Start Date End Date Amari Jenkins MD [address] [place] [address] PCP - General 04/11/20 08/30/21 Ariella Montaño MD [address] [place] [address] PCP - General 08/31/21 documented as of this encounter
--- OUTSIDE RECORDS SUMMARY | 2024-07-22 10:14 | XMS_ITS | Encounter Summary ---
Author Organization [facility] Address [address] [place] [address] Care Team Providers Care Safety Relief Valve Technician Name Role Phone Ariella Montaño MD Primary Care Provider [phone] Encounter Details Date Type Department Care Team (Late st Contact Info) Description 02/15/2024 External Device Data STL ABSTRACTION Provider, Abstract [...] Info) Description 10/09/2024 1:30 PM CDT Appointment [facility] [address] [place] [address] Ariella Montaño MD [address] [place] [address] documented as of this encounter Visit Diagnoses Not on filedocumented in this encounter Care Teams Safety Relief Valve Technician Relationship Specialty Start Date End Date Ariella Montaño MD [address] [place] [address] PCP - General Family Practice 08/22/21 documented as of this encounter
--- OUTSIDE RECORDS SUMMARY | 2024-07-22 10:14 | XMS_ITS | Encounter Summary ---
Author Organization [facility] Address [address] [facility] [place] [address] Care Team Providers Care Tester Operator Helper Name Role Phone Ariella Montaño MD Primary Care Provider [phone] Encounter Details Date Type Department Care Team (Latest Contact Info) Description 09/02/2021 1:30 PM COIN TELLER Clinical Support [facility] [address] [place] [address] Surgery follow-up examination Social History Tobacco Use Types Packs/Day Years [...] as of this encounter Progress Notes * Leighann Odom - 09/02/2021 1:04 PM CST Patient presents for follow-up s/p surgery, details below. Using vaseline and bandage as directed, reports no issues. Pt presents for follow up: Date of Service:??05/09/2020 Surgery: Mohs micrographic surgery Indication:??Tumor location?? Repair Type:??Complex Repair Size:??2.8cm Suture Material:??monocryl 5-0;prolene 6-0 Tumor Type:??Basal cell carcinoma Location:??midline nasal bridge Derm-Path PreOp Size:?0.4x0.4??cm. PostOp Size:?1.1x0.8??cm. Mohs Level of Defect:??muscle Patient states she has no issues or concerns with the scars, photo was taken. TELLER documented in this encounter Plan of Treatment Upcoming Encounters Date Type Department Care Team (Late st Contact Info) Description 10/31/2024 10:00 AM CDT Office Visit [facility] [address] [facility] [address] [phone] Librado Peña MD [address] [address] documented as of this encounter Visit Diagnoses Diagnosis Surgery follow-up examination- Primary Follow-up examination, following unspecified surgery documented in this encounter Care Teams Tester Operator Helper Relationship Specialty Start Date End Date Ariella Montaño MD [address] [place] [address] PCP - General 08/31/21 documented as of this encounter
--- OUTSIDE RECORDS SUMMARY | 2024-07-22 10:14 | XMS_ITS | Encounter Summary ---
Author Organization [facility] Address [address] [place] [address] Care Team Providers Care Solid Waste Manager Name Role Phone Ariella Montaño MD Primary Care Provider [phone] Reason for Visit * Reason Onset Date Comments Pre Authorization 11/11/2022 Encounter Details Date Type Department Care Team (Late st Contact Info) Description 11/11/2022 Telephone [facility] [address] [facility], [address] [place] [id number] Jessica Ferrara Pre Authorization Social History Tobacco Use Types Packs/Day Years [...] on file documented as of this encounter Miscellaneous Notes * Telephone Encounter - Jessica Ferrara - 11/11/2022 1:35 PM CDT Per [facility] At [facility] CPT codes 54629 and 46873 do not require auth-no pre cert needed. Call ref# [id number] documented in this encounter Plan of Treatment Upcoming Encounters Date Type Department Care Team (Late st Contact Info) Description 10/31/2024 10:00 AM CDT Office Visit [facility] [address] , [facility] [address] [place] [address] Librado Peña MD [address] [facility] [address] [place] [address] documented as of this encounter Visit Diagnoses Not on filedocumented in this encounter Care Teams Solid Waste Manager Relationship Specialty Start Date End Date Ariella Montaño MD [address] [place] [address] PCP - General 08/31/21 documented as of this encounter
--- OUTSIDE RECORDS SUMMARY | 2024-07-22 10:14 | XMS_ITS | Encounter Summary ---
Author Organization [facility] Address [address] [place] [address] Care Team Providers Care First Assistant Manager Name Role Phone Ariella Montaño MD Primary Care Provider [phone] Encounter Details Date Type Department Care Team (Late st Contact Info) Description 03/28/2024 External Device Data STL ABSTRACTION Provider, Abstract [...] Info) Description 10/09/2024 1:30 PM CDT Appointment [facility] [address] [place] [phone] Ariella Montaño MD [address] [place] [address] documented as of this encounter Visit Diagnoses Not on filedocumented in this encounter Care Teams First Assistant Manager Relationship Specialty Start Date End Date Ariella Montaño MD [address] [place] [address] PCP - General Family Practice 08/22/21 documented as of this encounter
--- OUTSIDE RECORDS SUMMARY | 2024-07-22 10:14 | XMS_ITS | Encounter Summary ---
Author Organization [facility] Address [address] [place] [address] Care Team Providers Care Medical Dosimetrist Name Role Phone Ariella Montaño MD Primary Care Provider Encounter Details Date Type Department Care Team (Late st Contact Info) Description 03/23/2024 External Device Data STL ABSTRACTION Provider, Abstract [...] Info) Description 10/09/2024 1:30 PM CDT Appointment [facility] [address] [place] [phone] Ariella Montaño MD [address] [place] [address] documented as of this encounter Visit Diagnoses Not on filedocumented in this encounter Care Teams Medical Dosimetrist Relationship Specialty Start Date End Date Ariella Montaño MD [address] [place] [address] PCP - General Family Practice 08/22/21 documented as of this encounter
--- OUTSIDE RECORDS SUMMARY | 2024-07-22 10:14 | XMS_ITS | Encounter Summary ---
Author Organization [facility] Address [address] [facility] [place] [address] Care Team Providers Care Transaction Coordinator Name Role Phone Amari Jenkins MD Primary Care Provider [phone] Reason for Visit * Reason Comments Scar CO2 BCC midline nasa l bridge Encounter Details Date Type Department Care Team (Latest Contact Info) Description 07/01/2021 10:30 AM PHYTOPATHOLOGIST Clinical Support [facility] [address] [place] [address] Keloid ; Personal history of skin cancer Social History Tobacco Use Types Packs/Day Years [...] on file documented as of this encounter Patient Instructions * Patient Instructions* Leighann Odom - 07/01/2021 11:57 AM PHYTOPATHOLOGIST Follow up: * If you have a problem or concern post-operatively, please call ahead to schedule an appointment. We may not be able to accommodate a walk-in appointment * Please continue wound care below twice a day for one week WOUND CARE INSTRUCTIONS 1. Leave your pressure bandage on for 48 hours. You may bathe/shower, but do NOT get the bandage wet. You will not need to perform any wound care until this bandage is removed. 2. When you initially begin wound care, you may let the water hit the pressure bandage to loosen itfrom your skin. The bandage should be removed before bathing/showering. 3. Wash your hands thoroughly before starting wound care. Do not use the same cloth/rag/sponge you would use to wash the remainder of your body as this may introduce bacteria from other areas of yourbody and possibly cause infection at the surgical site. 4. You will clean the surgery site twice daily with a mild liquid soap (i.e. Dove, Cetaphil, Baby shampoo). Do not use anything antibacterial, as this will dry the surgical site. 5. Dry the area with a fresh Q-tip or clean gauze. 6. Apply a generous amount of Vaseline or Aquaphor to the wound/sutures. Do not use Neosporin, or any antibacterial ointment as this is likely to cause an allergic reaction to the site. If you are not sure of the sanitary condition of any Vaseline/Aquaphor you may have at home, please purchase a new jar or tube. DO NOT DOUBLE-DIP Q-tips into the ointment and DO NOT USE YOUR FINGERS. This is essential in helping to prevent cross contamination and infection. 7. Cut a non-stick bandage pad to fit the area and then use bandaging tape to hold in place. Paper tape is a good option for very sensitive skin types. 8. You will be using mild soap, clean tap water, Vaseline/Aquaphor, and a bandage twice a day for 1week 9. After surgery, you may restart all your medications that were stopped (if applicable). If your surgical site is on your forehead, or close to the eye area, you will want to use ice packs. Please apply ice packs every hour for 20 minutes while awake. Sleep elevated for the next two nights as this will help decrease the amount of bruising and swelling you will notice the evening after surgery and into the next morning. For surgical areas on your arms/legs, try to keep the area elevated above the level of your heart as much as possible. This will help to decrease swelling. Frequent gentle rubbing of your fingers or toes in that area will prevent numbness and stiffness. If located on your arm/hand, we ask that you do not lift anything heavier than a gallon of milk fortwo weeks. Keep the arm/hand elevated to help decrease swelling in the wrist and fingers. Do not wear jewelry as impending swelling could cause discomfort. For surgical areas on your head/neck, do not bend over or stoop down. Do not drop your head, as this increases blood to the surgical area and can induce bleeding. Refrain from use of hair care products, hair coloring, or permanents until sutures have been removed and/or the surgical site has completely healed. BATHING: Begin bathing/showering once pressure bandage comes off. Do not let direct water pressure hit the surgery site. It is okay if it gets wet, just let the water roll over. PAIN: Tylenol only for the first 24 hours. Do not take any aspirin, Ibuprofen, Motrin or Aleve as this may increase your risk for bleeding for the first 24 hours. Significant pain/discomfort is unusual and should be reported to our office. SIGNS OF POSSIBLE INFECTION: Significant redness surrounding the surgery site that is warm to the touch, persistent or worsening pain, fever or flu-like symptoms, increased swelling to the area, thick yellow discharge, and/or foul odor. Please call our office as soon as possible if you experience any these symptoms as you may have an infection. BLEEDING: A mild amount of blood on the bandage is expected. Soaking through the bandage is not normal. If this occurs, remove the soiled bandage and apply uninterrupted pressure for 20 minutes by the clock. If this does not stop the bleeding, hold pressure for another 20 minutes with an ice pack. If bleeding stops, apply a bandage per wound care instructions. IF THE BLEEDING PERSISTS, PLEASE CALL OUR OFFICE. Normal office hours: [phone] or [phone] After hours and holidays Vehicle Painter dimensional integration engineer: [phone] Scars may take 12 months or longer to mature, although a great deal of improvement occurs in the first 3 months. If you have concerns about your scar after 3 months, please call our office to schedule a follow up appointment. There are options available to help improve the appearance. If you have concerns about how your wound is healing and would like to send us a photo, please email us at [email or web address]. Please include your name and date of in the email. OPATHOLOGIST documented in this encounter Progress Notes * Leighann Odom - 07/01/2021 12:22 PM CST Patient presents today for CO2 laser dermabrasion. Shasha Chavarria MD OPATHOLOGIST * Kayleigh Wagner - 07/01/2021 10:32 AM CST OPATHOLOGIST documented in this encounter Procedure Notes * Shasha Chavarria MD - 07/01/2021 5:21 PM CSTAssociated Order(s): PROC DESTRUCT BENIGN LESION NOT SKIN TAG Procedure(s): MO DESTRUCT BENIGN LESION, 1-14 Pre-Procedure Diagnose(s): Keloid; Personal history of skin cancer DOS: 07/01/2021 Diagnosis: Keloidal/hypertrophic scar after skin [...] CO2RE laser??to provide an anatomically correct appearance. Pressure only??was used to obtain hemostasis and a sterile dressing was placed on the wound. ??Wound care was explained to the patient and the patient will return in 8 weeks for a follow up. ? Procedure: CO2RE Laser ? Pre Procedure: Patient Consultation/Assessment Form completed: ??Yes. ? Patient denies glycolic acid, retinol, or like-products in the last 2 weeks (including xgpo-blv-hygicof products). ?? Patient denies use of Accutane [...] performed the entire procedure. Shasha Chavarria MD Assessment Specialist OPATHOLOGIST documented in this encounter Plan of Treatment Upcoming Encounters Date Type Department Care Team (Late st Contact Info) Description 10/31/2024 10:00 AM CDT Office Visit [facility] [address] [phone] Librado Peña MD [address] [facility] [address] [place] [address] documented as of this encounter Procedures Procedure Name Priority Date/Time Associated Diagnosis Comments MO DESTRUCT BENIGN LESION, 1-14 Routine 07/01/2021 5:21 PM PHYTOPATHOLOGIST Keloid documented in this encounter Results * MO DESTRUCT BENIGN LESION, 1-14 (07/01/2021 5:21 PM PHYTOPATHOLOGIST) Narrative Shasha Chavarria MD - 07/01/2021 5:21 PM PHYTOPATHOLOGIST Shasha Chavarrai MD ? 07/01/2021 ??5:22 PM DOS: 07/01/2021 [...] like-products in the last 2 weeks (including eftc-bhm-pholrhe products). ?? Patient denies use of Accutane [...] performed the entire procedure. Shasha Chavarria MD Assessment Specialist Shasha Chavarria MD PROCEDURE/MINOR SURG ICAL ORDERABLES documented in this encounter Visit Diagnoses Diagnosis Keloid- Primary Keloid scar Personal history of skin cancer Personal history of other malignant neoplasm of skin documented in this encounter Care Teams Transaction Coordinator Relationship Specialty Start Date End Date Amari Jenkins MD [address] [place] [address] PCP - General 04/11/20 08/30/21 documented as of this encounter
--- OUTSIDE RECORDS SUMMARY | 2024-07-22 10:14 | XMS_ITS | Encounter Summary ---
Author Organization [facility] Address [address] [place] [address] Care Team Providers Care Hot Oiler Name Role Phone Amari Jenkins MD Primary Care Provider [phone] Reason for Visit * Reason Comments Basal Cell Carcinoma midline nasal bridg e Encounter Details Date Type Department Care Team (Latest Contact Info) Description 05/09/2020 7:30 AM CDT Procedure visit [facility] [facility], [place] [phone] Shasha Chavarria MD [address] [place] [address] [address] [facility] [place], [place] [id number] Basal cell carcinoma of nose Social History Tobacco Use Types Packs/Day Years [...] Sign Reading Time Taken Comments Blood Pressure 125/89 05/09/2020 10:02 AM CDT Pulse 91 05/09/2020 7:36 AM CDT Temperature - - Respiratory Rate - - Oxygen Saturation - - Inhaled Oxygen Concentration - - Weight 74.8 kg (165 lb) 05/09/2020 7:36 AM CDT Height 154.9 cm (5' 1 ) 05/09/2020 7:36 AM CDT Body Mass Index 31.18 05/09/2020 7:36 AM CDT documented in this encounter Patient Instructions * Patient Instructions* Erica Fenton - 05/09/2020 9:54 AM CDT It was a pleasure to see you today in clinic. Stitches: will not dissolve on their own. Please follow up in 1 week. Follow up: * If you have a problem or concern post-operatively, please call ahead to schedule an appointment. We may not be able to accommodate a walk-in appointment * Scars may take 3 months or longer to mature. If you have concerns about your scar at that point, please call our office to schedule a follow up appointment. There are options available to help improve the appearance. Please continue wound care below twice a day for one week. WOUND CARE INSTRUCTIONS 1. Leave your pressure bandage on for 48 hours. You will not need to perform any wound care until this bandage is removed. Do NOT get bandage wet. 2. When you initially begin wound care, you may let the water hit the pressure bandage to loosen itfrom your skin. 3. Wash your hands thoroughly before starting wound care. 4. Begin cleaning surgery site 1-2 times a day with a mild liquid soap (i.e. Dove, Cetaphil, Baby shampoo). Do not use anything antibacterial, as this will dry out your site. 5. Dry the area with a fresh cotton tipped applicator. 6. Apply a generous amount of vaseline where you see the sutures. Avoid using Neosporin, or any bacterial ointment as this is likely to cause an allergic reaction to the site. 7. Cut a non-stick bandage to fit then use paper tape to hold in place. 8. You will be using mild soap and water, vaseline and a bandage twice a day for 1 week 9. After surgery, you may restart all of your medications that were stopped (if applicable). - If your site is on your forehead, or near your eye, you will want to use ice packs. Please apply ice packs every hour for 20 minutes while awake. Sleep elevated for the next two nights. For surgical areas on your arms/legs, try to keep the area elevated above the level of your heart as much as possible. Frequent gentle rubbing of your fingers or toes in that area will prevent numbness and stiffness. If located on your arm/hand, we ask that you do not lift anything heavier than a gallon of milk fortwo weeks. For surgical areas on your head/neck, do not bend over or stoop. Do not drop your head, as this increases blood to the surgical area and can induce bleeding. BATHING: Begin bathing once pressure bandage comes off. Do not [...] Significant pain/discomfort is unusual and should be reportedto our office. BLEEDING: A mild amount of blood on the bandage is expected. Soaking through the bandage is not normal. If this occurs, apply uninterrupted pressure for 20 minutes by the clock. If this does not stopthe bleeding, hold pressure for 20 minutes with an ice pack then call our office. Normal office hour number: [phone] or [phone] After hours Bankruptcy Manager neonatal intensive care nurse: [phone] documented in this encounter Procedure Notes * Erica Fenton - 05/09/2020 10:20 AM CDTAssociated Order(s): PROC MOHS SURG HEAD/NECK/HAND/FEET/BRIGID Procedure(s): ID CHMSRG MOHS MG TQ H/N/H/F/G 1ST STAG 5 BLOC; ID REPR CMPL WND LID,NOS,EAR 2.5-7.5 Pre-Procedure Diagnose(s): Basal cell carcinoma of nose Date of Service: 05/09/2020 Surgery: Mohs micrographic surgery Indication: Tumor location Repair Type: Complex Repair Size: 2.8cm Suture Material: monocryl 5-0;prolene 6-0 Tumor Type: Basal cell carcinoma Location: midline nasal bridge Derm-Path PreOp Size: 0.4x0.4 cm. PostOp Size: 1.1x0.8 cm. [facility] of De[facility]: muscle Procedure: The patient was placed supine on the operating table. The cancer was identified, outlined with a marker, and verified by the patient. The entire surgical field was prepped with iodine. The surgical site was anesthetized using Lidocaine [...] The excised tissue was [facility] maintaining the tissue orientation. The tissue specimen was relaxed so that the entire surgical margin was in a a single horizontalplane for sectioning andinked for precise mapping. A precise reference map was drawn to reflect thesectioning of the specimen, colored inking of the margins, and orientation on the patient. The tissue was processed using horizontal sectioning ofthe base and continuous peripheral margins. The histopathologic sections were reviewed in conjunction with the reference map. Total blocks: 1 Total slides: 3 No additional tumor was identified on microscopic examination, therefore Mohs surgery was complete. Reconstruction: Complex Closure Primary Surgeon : Aura Events Director Surgeon : The patient was taken to the operative suite and placed on the operating room table. The defect wasidentified. Appropriate markings were made with a marking pen to plan the repair. The area was infiltrated with Lidocaine 1% with epinephrine 1:100,000 buffered with sodium bicarbonate 8.4% in a 1:10ratio and prepped with Iodine and draped with sterile towels. The wound was debeveled and undermined widely the width of the defect bilaterally and with care to maintain the free margin of the nose. Hemostasis was obtained using monopolar electrodessication. Care was taken to orient tension vectors of the closure to minimize distortion of free margins. Cones of redundant tissue were then excised within relaxed skin tension lines on both sides of the defect and additional buried sutures were placed in a similar fashion where needed. Percutaneous 5-0 Monocryl sutures were carefully placed for maximum eversion and meticulous approximation. Repair Size: 2.8 cm Sutures Used: 5-0 Monocryl; 6-0 Prolene. The wound was cleansed with saline and ointment was applied along the wound surface. A sterile pressure dressing was applied. Wound care instructions were given verbally and in writing. The patient left the operating suite in stable condition. Patient was informed that additional refinement of the resulting surgical scar may be used as a second stage of this reconstruction. The Attending surgeon was present for the entire procedure and always immediately available. Erica Fenton MA I have reviewed the note, edited it as necessary and performed the entire procedure. Shasha Chavarria MD Mergers And Acquisitions Attorney documented in this encounter Plan of Treatment Upcoming Encounters Date Type Department Care Team (Late st Contact Info) Description 10/31/2024 10:00 AM CDT Office Visit [facility] - [facility] [address] [address] Librado Peña MD [address] [facility] [address] [place] [address] documented as of this encounter Procedures Procedure Name Priority Date/Time Associated Diagnosis Comments ID CHMSRG MOHS MG TQ H/N/H/F/G G 5 BLOC Routine 05/09/2020 10:20 AM CDT Basal cell carcinoma of nose ID REPR CMPL WND LID,NOS,EAR 2.5-7.5 Routine 05/09/2020 10:20 AM CDT Basal cell carcinoma of nose documented in this encounter Results * ID REPR CMPL WND LID,NOS,EAR 2.5-7.5, ID CHMSRG MOHS MG TQ H/N/H/F/G 1ST STAG [...] Size: ??0.4x0.4 cm. PostOp Size: ??1.1x0.8 cm. [facility] Level of Defect: muscle Procedure: The patient [...] The excised tissue was transported to the [facility] maintaining the tissue orientation. ??The [...] Reconstruction: Complex Closure Primary Surgeon : Aura Events Director Surgeon : The patient was taken to [...] performed the entire procedure. Shasha Chavarria MD Mergers And Acquisitions Attorney Shasha Chavarria MD PROCEDURE/MINOR SURG ICAL ORDERABLES documented in this encounter Visit Diagnoses Diagnosis Basal cell carcinoma of nose- Primary Basal cell carcinoma of skin of other and unspecified parts of face documented in this encounter Care Teams Hot Oiler Relationship Specialty Start Date End Date Amari Jenkins MD [address] [facility] [place], [place] [id number] PCP - General 04/11/20 08/30/21 documented as of this encounter
--- OUTSIDE RECORDS SUMMARY | 2024-07-22 10:14 | XMS_ITS | Encounter Summary ---
Author Organization [facility] Address [address] [place] [address] Care Team Providers Care Valet Manager Name Role Phone Ariella Montaño MD Primary Care Provider [phone] Reason for Visit * Reason Onset Date Comments General 12/07/2022 Encounter Details Date Type Department Care Team (Late st Contact Info) Description 12/07/2022 Telephone [facility] [address] [facility], [address] [place], [place] [id number] Librado Peña MD [address] [facility] [address] [place], [place] [id number] General Social History Tobacco Use Types Packs/Day Years [...] Telephone Encounter - Any Martínez RN - 12/07/2022 8:16 AM CDT Prior authorization approved Payer: [employer] traMADol (Ultram) 50 MG tablet Take 1 (one) tablet by mouth every 6 hours as needed for Pain Dispense: 12 tablet Refills: 0 Start: 12/31/2022 documented in this encounter Plan of Treatment Upcoming Encounters Date Type Department Care Team (Late st Contact Info) Description 10/31/2024 10:00 AM CDT Office Visit [facility] [address] , [facility] [address] [place] [address] Librado Peña MD [address] [facility] [address] [place] [address] documented as of this encounter Visit Diagnoses Not on filedocumented in this encounter Care Teams Valet Manager Relationship Specialty Start Date End Date Ariella Montaño MD [address] [place] [address] PCP - General 08/31/21 documented as of this encounter
--- OUTSIDE RECORDS SUMMARY | 2024-07-22 10:14 | XMS_ITS | Encounter Summary ---
Author Organization [facility] Address [address] [facility] [place] [address] Care Team Providers Care Nut Roaster Helper Name Role Phone Ariella Montaño MD Primary Care Provider [phone] Reason for Visit * Reason Comments Surgical Follow-up Encounter Details Date Type Department Care Team (Late st Contact Info) Description 01/01/2023 10:00 AM CDT Office Visit [facility] [address] [facility], [facility] [address] [place] [address] Librado Peña MD [address] [facility] [address] [place] [address] Mohs defect of nose (Primary [...] Progress Notes * Librado Peña MD - 01/01/2023 10:59 AM CDT Facial Plastic Surgery Post Operative Note Tari J Ej Post-Op: POD1 after undergoing repair of 4 nasal defects, septal cartilage forehead flap . - Pain: 1 - Swelling: Yes - Infection: No - Other: flap 100% viable, wound instructed - Instructed: clean and lubricate QID, saline spray used liberally. - A/P: Doing well - FU in 1 week Librado Peña MD documented in this encounter Plan of Treatment Upcoming Encounters Date Type Department Care Team (Late st Contact Info) Description 10/31/2024 10:00 AM CDT Office Visit [facility] [address] [facility] [place] [address] [address] Librado Peña MD [address] [address] documented as of this encounter Visit Diagnoses Diagnosis Mohs defect of nose- Primary Acquired deformity of nose documented in this encounter Care Teams Nut Roaster Helper Relationship Specialty Start Date End Date rAiella Montaño MD [address] [place] [address] PCP - General 08/31/21 documented as of this encounter
--- OUTSIDE RECORDS SUMMARY | 2024-07-22 10:14 | XMS_ITS | Encounter Summary ---
Author Organization [facility] Address [address] [place] [address] Care Team Providers Care Sex Crimes Detective Name Role Phone Ariella Montaño MD Primary Care Provider [phone] Reason for Referral * Medication Prior Authorization - Authorized Specialty Diagnoses / Procedures Referred By Contac t Referred To Contact Diagnoses Basal cell carcinoma of nose Librado Peña MD [address] [address] Referral ID Status Reason Start Date Expiration Date V isits Requested Visits Authorized [id number] Authorized 1 1 Encounter Details Date Type Department Care Team (Late st Contact Info) Description 12/01/2022 Orders Only [facility] [address] [facility], [address] [place] [address] Librado Peña MD [address] [address] Basal cell carcinoma of nose Social History [...] - ENT [address] , [facility] [address] [place] [address] Librado Peña MD [address] [facility] [address] [place] [address] documented as of this encounter Visit Diagnoses Diagnosis Basal cell carcinoma of nose- Primary Basal cell carcinoma of skin of other and unspecified parts of face documented in this encounter Care Teams Sex Crimes Detective Relationship Specialty Start Date End Date Ariella Montaño MD [address] [place] [address] PCP - General 08/31/21 documented as of this encounter
--- OUTSIDE RECORDS SUMMARY | 2024-07-22 10:14 | XMS_ITS | Encounter Summary ---
Author Organization [facility] Address [address] [facility] [place] [address] Care Team Providers Care Automotive Sales Manager Name Role Phone Ariella Montaño MD Primary Care Provider [phone] Reason for Visit * Reason Comments Surgical Follow-up Encounter Details Date Type Department Care Team (Late st Contact Info) Description 01/15/2023 10:45 AM CDT Office Visit [facility] [address] [facility], [facility] [address] [place] [address] Librado Peña MD [address] [facility] [address] [place] [address] Mohs defect of nose (Primary [...] Progress Notes * Librado Peña MD - 01/15/2023 11:29 AM CDT Facial Plastic Surgery Post Operative Note Tari J Ej Post-Op: 2 weeks after undergoing repair of 4 nasal defects, septal cartilage forehead flap . - Pain: 0 - Swelling: Yes - Infection: No - Other: flap 100% viable, sutures spitting, clipped.. remianing skin graft sutures removed - Instructed: continue Tx - A/P: Doing well - FU for 2nd stage Librado Peña MD documented in this encounter Plan of Treatment Upcoming Encounters Date Type Department Care Team (Late st Contact Info) Description 10/31/2024 10:00 AM CDT Office Visit [facility] [address] [address] Librado Peña MD [address] [address] documented as of this encounter Visit Diagnoses Diagnosis Mohs defect of nose- Primary Acquired deformity of nose documented in this encounter Care Teams Automotive Sales Manager Relationship Specialty Start Date End Date Ariella Montaño MD [address] [place] [address] PCP - General 08/31/21 documented as of this encounter
--- OUTSIDE RECORDS SUMMARY | 2024-07-22 10:14 | XMS_ITS | Encounter Summary ---
Author Organization [facility] Address [address] [facility] [place] [address] Care Team Providers Care Appliquer Zigzag Name Role Phone Amari Jenkins MD Primary Care Provider [phone] Reason for Visit * Reason Comments Follow-up BCC midline nasal br idge Encounter Details Date Type Department Care Team (Latest Contact Info) Description 06/24/2021 10:30 AM BUILDER OPERATOR Clinical Support [facility] [address] [place] [address] Surgery follow-up examination Social History Tobacco Use [...] this encounter Patient Instructions * Patient Instructions* Kayleigh Wagner - 06/24/2021 10:19 AM BUILDER OPERATOR Please call to schedule CO2 laser treatment. DER OPERATOR documented in this encounter Progress Notes * Kayleigh Wagner - 06/24/2021 10:03 AM CST Pt presents for follow up: Date of Service:??05/09/2020 Surgery: Mohs micrographic surgery Indication:??Tumor location?? Repair Type:??Complex Repair Size:??2.8cm Suture Material:??monocryl 5-0;prolene 6-0 Tumor Type:??Basal cell carcinoma Location:??midline nasal bridge Derm-Path PreOp Size:?0.4x0.4??cm. PostOp Size:?1.1x0.8??cm. Mohs Level of Defect:??muscle Pt has concerns about a bump along the scar line. Pt to call and schedule CO2 laser treatment, Pt was seen by today and a photo was taken. -Kayleigh Wagner DER OPERATOR documented in this encounter Plan of Treatment Upcoming Encounters Date Type Department Care Team (Late st Contact Info) Description 10/31/2024 10:00 AM CDT Office Visit [facility] - ENT [address] [phone] Librado Peña MD [address] [address] documented as of this encounter Visit Diagnoses Diagnosis Surgery follow-up examination- Primary Follow-up examination, following unspecified surgery documented in this encounter Care Teams Appliquer Zigzag Relationship Specialty Start Date End Date Amari Jenkins [place] [address] PCP - General 04/11/20 08/30/21 documented as of this encounter
--- OUTSIDE RECORDS SUMMARY | 2024-07-22 10:14 | XMS_ITS | Encounter Summary ---
Author Organization [facility] Address [address] [facility] [place] [address] Care Team Providers Care Lead Database Developer Name Role Phone Ariella Montaño MD Primary Care Provider [phone] Encounter Details Date Type Department Care Team (Late Contact Info) Description 12/17/2022 Orders Only [facility] [address], [address] [place] [address] Shasha Chavarria MD [address] [facility] [address] DEPT OF DERMATOLOGY [place], [place] [id number] Social History Tobacco Use Types Packs/Day Years [...] [address], [address] [place] [address] Librado Peña MD [address] [place] [address] documented as of this encounter Visit Diagnoses Not on filedocumented in this encounter Care Teams Lead Database Developer Relationship Specialty Start Date End Date Ariella Montaño MD [address] [place] [address] PCP - General 08/31/21 documented as of this encounter
--- OUTSIDE RECORDS SUMMARY | 2024-07-22 10:14 | XMS_ITS | Encounter Summary ---
Author Organization [facility] Address [address] [facility] [place] [address] Care Team Providers Care Medical Clerk Name Role Phone Amari Jenkins MD Primary Care Provider [phone] Reason for Visit * Reason Onset Date Comments Medication Problem 07/02/2021 CO2 LASER YES TERDAY(BOTH EYES VERY PUFFY AND SWOLLEN SHUT) Encounter Details Date Type Department Care Team (Late st Contact Info) Description 07/02/2021 Telephone [facility] [address] [place] [address] Shahsa Chavarria MD [address] [place] [address] Medication Problem (CO2 LASER YESTERDAY(BOTH EYES VERY PUFFY AND SWOLLEN SHUT)) Social History Tobacco Use Types Packs/Day Years [...] encounter Miscellaneous Notes * Telephone Encounter - Rickey Mendes MD - 07/02/2021 4:05 PM CST Spoke with patient and her daughter this afternoon regarding photos sent over for facial swelling. She notes puffiness around they eyes, cheeks, and some bruising extending on to the upper lip which all started last night but then seemed quite a bit worse upon waking up this morning. She does note sleeping flat last night. Otherwise feeling well, denies erythema or swelling into the lips or oral cavity, no difficulty with breathing or GI sx. Denies any pain. Discussed with her that postop edemais common from the laser tx and rec'd continued use of ice, which has been helpful. She will also sleep in a recliner tonight instead of lying flat. She had no further questions or concerns followingour conversation. If sx worsen, I asked that she notify us. DDER TENDER * Telephone Encounter - Mandi Jenkins LPN - 07/02/2021 11:22 AM SHREDDER TENDER This is the photo she sent me Dr. Chavarria from yesterday after her CO2 laser procedure.She wants toknow if this normally occurs after a laser procedure. Mandi Jenkins LPN DDER TENDER * Telephone Encounter - Mandi Jenkins LPN - 07/02/2021 10:53 AM SHREDDER TENDER I called and spoke with patient and she stated she had a laser procedure yesterday and woke up thismorning with eyes very puffy and almost swollen shut. She has applied ice, but very concerned. I gave her the [facility] email address and her will be sending us a photo. Mandi Jenkins LPN DDER TENDER * Telephone Encounter - Jody Rob - 07/02/2021 9:33 AM CST PATIENT CALLED AND WORRIED BECAUSE BOTH EYES VERY PUFFY AND SWOLLEN ALMOST SHUT DDER TENDER documented in this encounter Plan of Treatment Upcoming Encounters Date Type Department Care Team (Late st Contact Info) Description 10/31/2024 10:00 AM CDT Office Visit [facility] [address] , [facility] [address] [place] [phone] Librado Peña MD [address] [facility] [address] [place] [address] documented as of this encounter Visit Diagnoses Not on filedocumented in this encounter Care Teams Medical Clerk Relationship Specialty Start Date End Date Amari Jenkins MD [address] [place] [address] PCP - General 04/11/20 08/30/21 documented as of this encounter
--- OUTSIDE RECORDS SUMMARY | 2024-07-22 10:14 | XMS_ITS | Encounter Summary ---
Author Organization [facility] Address [address] [facility] [place] [address] Care Team Providers Care Genetic Technologist Name Role Phone Amari Jenkins MD Primary Care Provider [phone] Reason for Visit * Reason Comments Suture Removal bcc midline nasal br idge Encounter Details Date Type Department Care Team (Late st Contact Info) Description 05/16/2020 8:00 AM CDT Office Visit [facility] [address] [facility] [place] [phone] Visit for suture removal (Primary Dx) Social History Tobacco Use Types [...] as of this encounter Progress Notes * Erica Fenton - 05/16/2020 7:44 AM CDT Patient presents for suture removal, details below: Date of Service: 05/09/2020 Surgery: Mohs micrographic surgery Indication: Tumor location Repair Type: Complex Repair Size: 2.8cm Suture Material: monocryl 5-0;prolene 6-0 Tumor Type: Basal cell carcinoma Location: midline nasal bridge Derm-Path PreOp Size: 0.4x0.4 cm. PostOp Size: 1.1x0.8 cm. Mohs Level of Defect: muscle Patient reports no concerns, no pain or tenderness. Sutures were removed with ease and photo was taken. Dr. Chavarria saw patient, wound is healing well. No need for follow up, follow up with referringprovider. Erica Fenton MA documented in this encounter Plan of Treatment Upcoming Encounters Date Type Department Care Team (Late st Contact Info) Description 10/31/2024 10:00 AM CDT Office Visit [facility] [address] [phone] Librado Peña MD [address] [facility] [address] [place] [address] documented as of this encounter Visit Diagnoses Diagnosis Visit for suture removal- Primary Encounter for removal of sutures documented in this encounter Care Teams Genetic Technologist Relationship Specialty Start Date End Date Amari Jenkins MD [address] [address] PCP - General 04/11/20 08/30/21 documented as of this encounter
--- OUTSIDE RECORDS SUMMARY | 2024-07-22 10:14 | XMS_ITS | Encounter Summary ---
Author Organization [facility] Address [address] [facility] [place] [address] Care Team Providers Care Special Client Bus Driver Name Role Phone Ariella Montaño MD Primary Care Provider [phone] Reason for Visit * Reason Comments Basal Cell Carcinoma Right ala, left charisse e nose,superior nose,left nasal bulb Encounter Details Date Type Department Care Team (Latest Contact Info) Description 09/10/2022 2:00 PM COMMERCIAL ENERGY RATER Cosmetic Visit [facility] [address] [place] [address], [place] [address] Shasha Chavarria MD [address] [place] [address] [address] [place] [address] Basal cell carcinoma (BCC) of right ala nasi ; Basal cell carcinoma (BCC) of left side of nose; Basal cell carcinoma of nose; Basal cell carcinoma of skin of nose Social History Tobacco Use Types [...] Sign Reading Time Taken Comments Blood Pressure 136/90 09/10/2022 2:21 PM COMMERCIAL ENERGY RATER Pulse 100 09/10/2022 2:21 PM COMMERCIAL ENERGY RATER Temperature - - Respiratory Rate - - Oxygen Saturation - - Inhaled Oxygen Concentration - - Weight - - Height - - Body Mass Index - - documented in this encounter Progress Notes * Rickey Potter MD - 09/10/2022 2:37 PM CST Mohs Consult Note Tari Pagan is a 57 year old female who is referred by Dr. Fan for 4 lesions: Lesion 1: basal cell carcinoma on the right ala. Recurrent skin cancer: no Prior Treatment: no Lesion 2: basal cell carcinoma on the left side of nose. Recurrent skin cancer: no Prior Treatment: Lesion 3: basal cell carcinoma on the superior nose. Recurrent skin cancer: yes Prior Treatment: yes Lesion 4: basal cell carcinoma on the left nasal bulb. Recurrent skin cancer: no Prior Treatment: no No past medical history on file. Current Outpatient Medications Medication Sig Dispense Refill ??? Cholecalciferol (VITAMIN D3) 1.25 MG (45145 UT) capsule Take 50,000 Units by mouth every 7 days ??? estradiol [...] and/or Vomiting Pre-Operative Risk Factors: Current Anticoagulants: none Patient reports use of antibiotic for prior procedure: no Endocarditis / Rheumatic Fever hx: no Vascular graft: no Immunocompromised: no Prosthetic joint: no Congenital heart defect: no Prosthetic heart valve: no Diabetic: no Transplant: no Cardiac devices: Stent: no. Pacemaker: no. Defibrillator: no Transmissible Diseases: HIV no HepC no no Patient reports prior problem with local anesthesia no Photoprotection for extended outdoor activities only Sun ojeda 1-5 in lifetime Tanning bed use never Tobacco use : no Occupation : [employer] Review of Systems Constitutional: negative Eyes: negative Ears, nose, mouth, throat, and face: negative Respiratory: negative Cardiovascular: negative Gastrointestinal: negative Genitourinary:negative Hematologic/lymphatic: negative Neurological: negative Behavioral/Psych: negative Objective: Physical Exam: Limited skin exam is normal except for a 0.5x0.4 cm pink papule located on the right ala, a 0.6x0.5cm pink papule located on the left side of nose, a 0.7x0.6 cm pink papule located on the superior nose, and a a 0.5x0.5 cm pink papule located on the left nasal bulb. Pathologic Findings: Lesion 1: Diagnosis: basal cell carcinoma Lesion 2: Diagnosis: basal cell carcinoma Lesion 3: Diagnosis: basal cell carcinoma Lesion 4: Diagnosis: basal cell carcinoma Assessment and Plan: Treatment Options: The various treatment options for skin cancer removal were reviewed with the patient in detail. These include Mohs surgery with its high cure rate, excision destructive treatment, radiation therapy, and various topical therapies. Given the indications and high cure rate, the patient has agreed to proceed with Mohs. Risks and Benefits: The rationale for Mohs was explained to the patient. The risks and benefits to therapy were discussed in detail. Specifically, the risks of infection, scarring, bleeding, dehiscence, hematoma, prolonged wound healing, incomplete removal, allergy to anesthesia, nerve injury, inability to clear the tumor, and recurrence were addressed. The treatment site was clearly identified and confirmed by the patient. Lesion 1: Diagnosis: basal cell carcinoma, right ala Plan: schedule Mohs Micrographic Surgery Indication for Mohs Location Proposed closure: Plastic surgery referral Currently hypertensive: no Indication for antibiotics: no Current Anticoagulants: none Lesion 2: Diagnosis: basal cell carcinoma, left side of nose Plan: schedule Mohs Micrographic Surgery Indication for Mohs Location Proposed closure: Plastic surgery referral Indication for antibiotics: no Current Anticoagulants: none Lesion 3: Diagnosis: basal cell carcinoma, superior nose Plan: schedule Mohs Micrographic Surgery Indication for Mohs Location Proposed closure: Plastic surgery referral Indication for antibiotics: no Current Anticoagulants: none Lesion 4: Diagnosis: basal cell carcinoma, left nasal bulb Plan: schedule Mohs Micrographic Surgery Indication for Mohs Location Proposed closure: Plastic surgery referral Indication for antibiotics: no Current Anticoagulants: none Rickey Potter MD PGY5 Mohs Surgery and Dermatological Oncology Fellow ERCIAL ENERGY RATER Associated attestation - Shasha Chavarria MD - 09/13/2022 1:15 PM COMMERCIAL ENERGY RATER I have seen and examined the patient with the resident and I agree with the findings and plan of care as documented by the resident. Date of Service: 09/10/2022 I independently reviewed the pathology report ordered by Meng, correlated the results with the patient's clinical presentation, and used this assessment to determine the patient's diagnosis of BCC x 4 on nose, a new diagnosis with uncertain prognosis. I also used the pathology report to formulatethe plan of Mohs with Francis repair (minor procedure), with the following procedure and/or patient risk factors: none. Shasha Chavarria MD 09/10/2022 documented in this encounter Plan of Treatment Upcoming Encounters Date Type Department Care Team (Late st Contact Info) Description 10/31/2024 10:00 AM CDT Office Visit [facility] [address] , [facility] [address] [place] [address] Librado Peña MD [address] [facility] [address] [place] [address] documented as of this encounter Visit Diagnoses Diagnosis Basal cell carcinoma (BCC) of right ala nasi- Primary Basal cell carcinoma (BCC) of left side of nose Basal cell carcinoma of nose Basal cell carcinoma of skin of other and unspecified parts of face Basal cell carcinoma of skin of nose Basal cell carcinoma of skin of other and unspecified parts of face documented in this encounter Care Teams Special Client Bus Driver Relationship Specialty Start Date End Date Ariella Montaño MD [address] [place] [address] PCP - General 08/31/21 documented as of this encounter
--- OUTSIDE RECORDS SUMMARY | 2024-07-22 10:14 | XMS_ITS | Encounter Summary ---
Author Organization [facility] Address [address] [place] [address] Care Team Providers Care Java Developer Analyst Name Role Phone Ariella Montaño MD Primary Care Provider [phone] Reason for Visit * Reason Comments Basal Cell Carcinoma Right ala,left side of nose,left nasal bulb,superior nose Encounter Details Date Type Department Care Team (Latest Contact Info) Description 12/30/2022 7:30 AM CDT Procedure visit [facility] - Dermatology [address] [place] [address] Shasha Chavarria MD [address] [facility] [address] [place] [address] Basal cell carcinoma (BCC) of right ala [...] AM CDT documented as of this encounter Last Filed Vital Signs Vital Sign Reading Time Taken Comments Blood Pressure 130/80 12/30/2022 7:18 AM CDT Pulse 72 12/30/2022 7:18 AM CDT Temperature - - Respiratory Rate - - Oxygen Saturation - - Inhaled Oxygen Concentration - - Weight - - Height - - Body Mass Index - - documented in this encounter Procedure Notes * Leighann Odom Emy - 12/30/2022 10:34 AM CDTAssociated Order(s): PROC MOHS SURG HEAD/NECK/HAND/FEET/BRIGID Procedure(s): RI CHMSRG MOHS MG TQ H/N/H/F/G 1ST STAG 5 BLOC; RI CHMSRG MOHS MG TQ H/N/H/F/G EA ADDL STAG Pre-Procedure Diagnose(s): Basal cell carcinoma of skin of nose Mohs Micrographic Surgery Operative Note Procedure: Mohs micrographic surgery Date of service: 12/30/2022 Location: left nasal bulb Preop diagnosis: Basal cell carcinoma Postop diagnosis: Basal cell carcinoma Mohs AUC score: 8 Number of stages: 2 Preop size: 0.7x0.6 cm Postop size: 1.3x1.5 cm Depth of final defect: muscle Previous dermpath accession #: [id number] D Repair type: Dr. Mariana Choe accession [...] eyelids, eyebrows, nose, lips, chin, ear, periauricular, religion, genitalia, hands, feet, ankles, nail units and [...] and consent was obtained. The risks, benefits andalternatives to therapy were discussed in detail. Specifically, the risks of infection, scarring, bleeding, prolonged wound healing, incomplete removal, allergy to anesthesia, nerve injury and recurrence were addressed. Prior to the procedure, the treatment site was clearly identified and confirmedby the patient. All components of [place] Protocol/PAUSE Rule completed. STAGE I: The patient was placed on the operating table. The cancer was identified and outlined. The entire surgical field was prepped with hibiclens. The surgical site was anesthetized using Lidocaine 1% withepinephrine 1:100,000 buffered with sodium bicarbonate 8.4% in [...] sections examined. No additional histologic findings appreciated. [facility] CLIA # [id number] [facility] Counselor Aide: MD Dr. Mariana Khan to do repair. Dr. Chavarria performed the entire surgery, and documentation used to initiate this operative report.I entered the information in our [employer] DocFlowsheet with the information provided by Dr. Chavarria on her handwritten, paper format, surgical worksheet, which was then used to initiate the create of this note. Dr. Chavarria then reviewed and edited the note as needed to complete the note. Leighann Odom UNDER GROUND MINER I have reviewed the note, edited it as necessary and performed the entire procedure. Shasha Chavarria MD Duct Installer 12/30/2022 * Leighann Odom - 12/30/2022 10:21 AM CDTAssociated Order(s): PROC MOHS SURG HEAD/NECK/HAND/FEET/BRIGID Procedure(s): RI CHMSRG MOHS MG TQ H/N/H/F/G 1ST STAG 5 BLOC; RI CHMSRG MOHS MG TQ H/N/H/F/G EA ADDL STAG Pre-Procedure Diagnose(s): Basal cell carcinoma of nose Mohs Micrographic Surgery Operative Note Procedure: Mohs micrographic surgery Date of service: 12/30/2022 Location: superior Nose Preop diagnosis: Basal cell carcinoma Postop diagnosis: Basal cell carcinoma Mohs AUC score: 8 Number of stages: 2 Preop size: 0.6x0.6 cm Postop size: 1.8x1.5 cm Depth of final defect: dermis Previous dermpath accession #: [id number] Repair type: Dr. Peña Mohs accession #: [id number] Surgeon and Pathologist: Shasha Chavarria MD served as both surgeon and pathologist. No other physician was involved in the cancer removal or pathology interpretation. Assistants: N/A Indications for Mohs Surgery Removal of the patient's tumor is complicated by the following clinical features: Clinical area critical for tissue conservation (Area H: central face, eyelids, eyebrows, nose, lips, chin, ear, periauricular, religion, genitalia, hands, feet, ankles, nail units and [...] and consent was obtained. The risks, benefits andalternatives to therapy were discussed in detail. Specifically, the risks of infection, scarring, bleeding, prolonged wound healing, incomplete removal, allergy to anesthesia, nerve injury and recurrence were addressed. Prior to the procedure, the treatment site was clearly identified and confirmedby the patient. All components of [place] Protocol/PAUSE Rule completed. STAGE I: The patient was placed on the operating table. The cancer was identified and outlined. The entire surgical field was prepped with hibiclens. The surgical site was anesthetized using Lidocaine 1% withepinephrine 1:100,000 buffered with sodium bicarbonate 8.4% in [...] sections examined. No additional histologic findings appreciated. [facility] CLIA # [id number] [facility] Counselor Aide: MD Dr. Mariana Khan to do repair. Dr. Chavarria performed the entire surgery, and documentation used to initiate this operative report.I entered the information in our [employer] DocFlowsheet with the information provided by Dr. Chavarria on her handwritten, paper format, surgical worksheet, which was then used to initiate the create of this note. Dr. Chavarria then reviewed and edited the note as needed to complete the note. Leighann Odom UNDER GROUND MINER I have reviewed the note, edited it as necessary and performed the entire procedure. Shasha Chavarria MD Duct Installer 12/30/2022 * Leighann Odom - 12/30/2022 10:14 AM CDTAssociated Order(s): PROC MOHS SURG HEAD/NECK/HAND/FEET/BRIGID Procedure(s): RI CHMSRG MOHS MG TQ H/N/H/F/G 1ST STAG 5 BLOC Pre-Procedure Diagnose(s): Basal cell carcinoma (BCC) of left side of nose Mohs Micrographic Surgery Operative Note Procedure: Mohs micrographic surgery Date of service: 12/30/2022 Location: left side of nose Preop diagnosis: Basal cell carcinoma Postop diagnosis: Basal cell carcinoma Mohs AUC score: 8 Number of stages: 1 Preop size: 0.6 x 0.6 cm Postop size: 1.1x1.2 cm Depth of final defect: adipose Previous dermpath accession #: [id number] Repair type: Dr. Peña Mohs accession #: [id number] Surgeon and Pathologist: Shasha Chavarria MD served as both surgeon and pathologist. No other physician was involved in the cancer removal or pathology interpretation. Assistants: N/A Indications for Mohs Surgery Removal of the patient's tumor is complicated by the following clinical features: Clinical area critical for tissue conservation (Area H: central face, eyelids, eyebrows, nose, lips, chin, ear, periauricular, religion, genitalia, hands, feet, ankles, nail units and [...] and consent was obtained. The risks, benefits andalternatives to therapy were discussed in detail. Specifically, the risks of infection, scarring, bleeding, prolonged wound healing, incomplete removal, allergy to anesthesia, nerve injury and recurrence were addressed. Prior to the procedure, the treatment site was clearly identified and confirmedby the patient. All components of [place] Protocol/PAUSE Rule completed. STAGE I: The patient was placed on the operating table. The cancer was identified and outlined. The entire surgical field was prepped with hibiclens. The surgical site was anesthetized using Lidocaine 1% withepinephrine 1:100,000 buffered with sodium bicarbonate 8.4% in [...] Inflammation obscuring possible tumor presence: Not Present [facility] CLIA # [id number] Mohs microbiological laboratory technician: MD Dr. Mariana Khan to do repair. Dr. Chavarria performed the entire surgery, and documentation used to initiate this operative report.I entered the information in our [employer] DocFlowsheet with the information provided by Dr. Chavarria on her handwritten, paper format, surgical worksheet, which was then used to initiate the create of this note. Dr. Chavarria then reviewed and edited the note as needed to complete the note. Leighann Odom UNDER GROUND MINER I have reviewed the note, edited it as necessary and performed the entire procedure. Shasha Chavarria MD Duct Installer 12/30/2022 * Leighann Odom - 12/30/2022 10:05 AM CDTAssociated Order(s): PROC MOHS SURG HEAD/NECK/HAND/FEET/BRIGID Procedure(s): RI CHMSRG MOHS MG TQ H/N/H/F/G 1ST STAG 5 BLOC Pre-Procedure Diagnose(s): Basal cell carcinoma (BCC) of right ala nasi Mohs Micrographic Surgery Operative Note Procedure: Mohs micrographic surgery Date of service: 12/30/2022 Location: right ala Preop diagnosis: Basal cell carcinoma Postop diagnosis: Basal cell carcinoma Mohs AUC score: 8 Number of stages: 1 Preop size: 0.3x0.3 cm Postop size: 0.6x0.5 cm Depth of final defect: adipose Previous dermpath accession #: [id number] Repair type: second intent Mohs accession [...] eyelids, eyebrows, nose, lips, chin, ear, periauricular, religion, genitalia, hands, feet, ankles, nail units and [...] and consent was obtained. The risks, benefits andalternatives to therapy were discussed in detail. Specifically, the risks of infection, scarring, bleeding, prolonged wound healing, incomplete removal, allergy to anesthesia, nerve injury and recurrence were addressed. Prior to the procedure, the treatment site was clearly identified and confirmedby the patient. All components of [place] Protocol/PAUSE Rule completed. STAGE I: The patient was placed on the operating table. The cancer was identified and outlined. The entire surgical field was prepped with hibiclens. The surgical site was anesthetized using Lidocaine 1% withepinephrine 1:100,000 buffered with sodium bicarbonate 8.4% in [...] Inflammation obscuring possible tumor presence: Not Present [facility] CLIA # [id number] Mohs microbiological laboratory technician: MD Dr. Mariana Khan to do repair. Dr. Chavarria performed the entire surgery, and documentation used to initiate this operative report.I entered the information in our [employer] DocFlowsheet with the information provided by Dr. Chavarria on her handwritten, paper format, surgical worksheet, which was then used to initiate the create of this note. Dr. Chavarria then reviewed and edited the note as needed to complete the note. Leighann Odom CMA I have reviewed the note, edited it as necessary and performed the entire procedure. Shasha Chavarria MD Duct Installer 12/30/2022 documented in this encounter Plan of Treatment Upcoming Encounters Date Type Department Care Team (Late st Contact Info) Description 10/31/2024 10:00 AM CDT Office Visit [facility] - ENT [address], [address] [place] [id number] Librado Peña MD [address] [facility] [address] [place] [address] documented as of this encounter Procedures Procedure Name Priority Date/Time Associated Diagnosis Comments RI CHMSRG MOHS MG TQ H/N/H/F/G 1ST STAG 5 BLOC Routine 12/30/2022 10:34 AM CDT Basal cell carcinoma of skin of nose PROC MOHS SURG HEAD/NECK/HAND/FEET /BRIGID Routine 12/30/2022 10:34 AM CDT Basal cell carcinoma of skin of nose RI CHMSRG MOHS MG TQ H/N/H/F/G EA ADDL STAG Routine 12/30/2022 10:34 AM CDT Basal cell carcinoma of skin of nose RI CHMSRG MOHS MG TQ H/N/H/F/G 1ST STAG 5 BLOC Routine 12/30/2022 10:21 AM CDT Basal cell carcinoma of nose RI CHMSRG MOHS MG TQ H/N/H/F/G EA ADDL STAG Routine 12/30/2022 10:21 AM CDT Basal cell carcinoma of nose RI CHMSRG MOHS MG TQ H/N/H/F/G 1ST STAG 5 BLOC Routine 12/30/2022 10:14 AM CDT Basal cell carcinoma (BCC) of left side of nose PROC MOHS SURG HEAD/NECK/HAND/FEET /BRIGID Routine 12/30/2022 10:14 AM CDT Basal cell carcinoma (BCC) of left side of nose RI CHMSRG MOHS MG TQ H/N/H/F/G 1ST STAG 5 BLOC Routine 12/30/2022 10:05 AM CDT Basal cell carcinoma (BCC) of right ala nasi PROC MOHS SURG HEAD/NECK/HAND/FEET /BRIGID Routine 12/30/2022 10:05 AM CDT Basal cell carcinoma (BCC) of right ala nasi documented in this encounter Results * RI CHMSRG MOHS MG TQ H/N/H/F/G EA ADDL STAG, RI CHMSRG MOHS MG TQ H/N/H/F/G 1ST STAG [...] final defect: muscle Previous dermpath accession #: [id number] Repair type: Dr. Mariana Choe accession [...] eyelids, eyebrows, nose, lips, chin, ear, periauricular, religion, genitalia, hands, feet, ankles, nail units and [...] confirmed by the patient. All components of [place] Protocol/PAUSE Rule completed. STAGE I: The patient [...] sections examined. No additional histologic findings appreciated. [facility] CLIA # [id number] [facility] Counselor Aide: MD Dr. Mariana Khan to do repair. [...] needed to complete the note. Leighann Odom UNDER GROUND MINER I have reviewed the note, edited it as necessary and performed the entire procedure. Shasha Chavarria MD Duct Installer 12/30/2022 Shasha Chavarria MD PROCEDURE/MINOR SURG ICAL ORDERABLES * RI CHMSRG MOHS MG TQ H/N/H/F/G EA ADDL STAG, RI CHMSRG MOHS MG TQ H/N/H/F/G 1ST STAG [...] final defect: dermis Previous dermpath accession #: [id number] Repair type: Dr. Mariana Choe accession [...] eyelids, eyebrows, nose, lips, chin, ear, periauricular, religion, genitalia, hands, feet, ankles, nail units and [...] confirmed by the patient. All components of [place] Protocol/PAUSE Rule completed. STAGE I: The patient [...] sections examined. No additional histologic findings appreciated. [facility] CLIA # [id number] Mohs Counselor Aide: MD Dr. Mariana Khan to do repair. [...] needed to complete the note. Leighann Odom UNDER GROUND MINER I have reviewed the note, edited it as necessary and performed the entire procedure. Shasha Chavarria MD Duct Installer 12/30/2022 Shasha Chavarria MD PROCEDURE/MINOR SURG ICAL ORDERABLES * RI CHMSRG MOHS MG TQ H/N/H/F/G 1ST STAG [...] final defect: adipose Previous dermpath accession #: [id number] Repair type: Dr. Peña Mohs accession #: [id number] Surgeon and Pathologist: Shasha Chavarria MD served as both surgeon and pathologist. No other physician was involved in the cancer removal or pathology interpretation. Assistants: N/A Indications for Mohs Surgery Removal of the patient's tumor is complicated by the following clinical features: Clinical area critical for tissue conservation (Area H: central face, eyelids, eyebrows, nose, lips, chin, ear, periauricular, religion, genitalia, hands, feet, ankles, nail units and [...] confirmed by the patient. All components of [place] Protocol/PAUSE Rule completed. STAGE I: The patient [...] Inflammation obscuring possible tumor presence: Not Present [facility] CLIA # [id number] Mohs microbiological laboratory technician: MD Dr. Mariana Khan to do repair. Dr. Chavarria performed the entire surgery, and documentation used to initiate this operative report. I entered the information in our [employer] DocFlowsheet with the information provided by Dr. Chavarria on her handwritten, paper format, surgical worksheet, which was then used to initiate the create of this note. Dr. Chavarria then reviewed and edited the note as needed to complete the note. Leighann Odom CMA I have reviewed the note, edited it as necessary and performed the entire procedure. Shasha Chavarria MD Duct Installer 12/30/2022 Shasha Chavarria MD PROCEDURE/MINOR SURG ICAL ORDERABLES * RI CHMSRG MOHS MG TQ H/N/H/F/G 1ST STAG [...] final defect: adipose Previous dermpath accession #: [id number] Repair type: second intent Mohs accession [...] eyelids, eyebrows, nose, lips, chin, ear, periauricular, religion, genitalia, hands, feet, ankles, nail units and [...] confirmed by the patient. All components of [place] Protocol/PAUSE Rule completed. STAGE I: The patient [...] Inflammation obscuring possible tumor presence: Not Present [facility] CLIA # [id number] Mohs microbiological laboratory technician: MD Dr. Mariana Khan to do repair. Dr. Chavarria performed the entire surgery, and documentation used to initiate this operative report. I entered the information in our [employer] DocFlowsheet with the information provided by Dr. Chavarria on her handwritten, paper format, surgical worksheet, which was then used to initiate the create of this note. Dr. Chavarria then reviewed and edited the note as needed to complete the note. Leighann Odom CMA I have reviewed the note, edited it as necessary and performed the entire procedure. Shasha Chavarria MD Duct Installer 12/30/2022 Shasha Chavarria MD PROCEDURE/MINOR SURG ICAL [...] face documented in this encounter Care Teams Java Developer Analyst Relationship Specialty Start Date End Date Ariella Montaño MD [address] [place] [address] PCP - General 08/31/21 documented as of this encounter
--- OUTSIDE RECORDS SUMMARY | 2024-07-22 10:14 | XMS_ITS | Encounter Summary ---
Author Organization [facility] Address [address] [place] [address] Care Team Providers Care Twister Frame Tender Name Role Phone Ariella Montaño MD Primary Care Provider [phone] Encounter Details Date Type Department Care Team (Late Contact Info) Description 12/01/2022 Orders Only [facility] [address] [facility] [address] [place], [place] [id number] Librado Peña MD [address] [address] Social History Tobacco Use Types Packs/Day Years [...] [facility] [address] [facility] [facility] [address] [place] [address] Librado Peña MD [address] [address] documented as of this encounter Visit Diagnoses Not on filedocumented in this encounter Care Teams Twister Frame Tender Relationship Specialty Start Date End Date Ariella Montaño MD [address] [place] [address] PCP - General 08/31/21 documented as of this encounter
--- OUTSIDE RECORDS SUMMARY | 2024-07-22 10:14 | XMS_ITS | Encounter Summary ---
Author Organization [facility] Address [address] [place] [address] Care Team Providers Care Bed Operator Name Role Phone Ariella Montaño MD Primary Care Provider [phone] Reason for Visit * Reason Onset Date Comments Appointment 08/12/2022 Encounter Details Date Type Department Care Team (Late st Contact Info) Description 08/12/2022 Telephone [facility] [address] [place] [address] Shasha Chavarria MD [address] [facility] [address] DEPT OF DERMATOLOGY [place], [place] [id number] Appointment Social History Tobacco Use Types Packs/Day Years [...] encounter Miscellaneous Notes * Telephone Encounter - Shasha Chavarria MD - 08/12/2022 5:08 AM CST Images from the original note were not included. Consult please. Lesions A, B, C, D. Shasha Chavarria MD Y LABORATORY TECHNICIAN documented in this encounter Plan of Treatment Upcoming Encounters Date Type Department Care Team (Late st Contact Info) Description 10/31/2024 10:00 AM CDT Office Visit [facility] - ENT [address] [place] [address] Librado Peña MD [address] [facility] [address] [place] [address] documented as of this encounter Visit Diagnoses Not on filedocumented in this encounter Care Teams Bed Operator Relationship Specialty Start Date End Date Ariella Montaño MD [address] [place] [address] PCP - General 08/31/21 documented as of this encounter
--- OUTSIDE RECORDS SUMMARY | 2024-07-22 10:14 | XMS_ITS | Encounter Summary ---
Author Organization [facility] Address [address] [place] [address] Care Team Providers Care Salesperson Shoes Name Role Phone Ariella Montaño MD Primary Care Provider [phone] Encounter Details Date Type Department Care Team [...] CDT Appointment [facility] [address] [place] [address] Ariella Montaño MD [address] [place] [address] documented as of this encounter Visit Diagnoses Not on filedocumented in this encounter Care Teams Salesperson Shoes Relationship Specialty Start Date End Date Ariella Montaño MD [address] [place] [address] PCP - General Family Practice 08/22/21 documented as of this encounter
--- OUTSIDE RECORDS SUMMARY | 2024-07-22 10:14 | XMS_ITS | Encounter Summary ---
Author Organization [facility] Address [address] [place] [address] Care Team Providers Care Msws Name Role Phone Ariella Montaño MD Primary Care Provider [phone] Encounter Details Date Type Department Care Team [...] Info) Description 10/09/2024 1:30 PM CDT Appointment [facility] [address] [place] [address] Ariella Montaño MD [address] [place] [address] documented as of this encounter Visit Diagnoses Not on filedocumented in this encounter Care Teams Msws Relationship Specialty Start Date End Date Ariella Montaño MD [address] [place] [address] PCP - General Family Practice 08/22/21 documented as of this encounter
--- OUTSIDE RECORDS SUMMARY | 2024-07-22 10:14 | XMS_ITS | Encounter Summary ---
Author Organization [facility] Address [address] [place] [address] Care Team Providers Care Director Of Partnerships Name Role Phone Ariella Montaño MD Primary Care Provider [phone] Encounter Details Date Type Department Care Team (Latest Contact Info) Description 01/01/2023 Travel Social History Tobacco Use Types Packs/Day [...] [address] [place] [address] Librado Peña MD [address] [place] [address] documented as of this encounter Visit Diagnoses Not on filedocumented in this encounter Care Teams Director Of Partnerships Relationship Specialty Start Date End Date Ariella Montaño MD [address] [place] [address] PCP - General 08/31/21 documented as of this encounter
--- OUTSIDE RECORDS SUMMARY | 2024-07-22 10:14 | XMS_ITS | Encounter Summary ---
Author Organization [facility] Address [address] [place] [address] Care Team Providers Care Cut Off Tender Glass Name Role Phone Ariella Montaño MD Primary Care Provider [phone] Encounter Details Date Type Department Care Team (Late st Contact Info) Description 05/31/2024 External Device Data [facility] ABSTRACTION Provider, [...] Description 10/09/2024 1:30 PM CDT Appointment [facility] [address] [place] [address] Ariella Montaño MD [address] [place] [address] documented as of this encounter Visit Diagnoses Not on filedocumented in this encounter Care Teams Cut Off Tender Glass Relationship Specialty Start Date End Date Ariella Montaño MD [address] [place] [address] PCP - General Family Practice 08/22/21 documented as of this encounter
--- OUTSIDE RECORDS SUMMARY | 2024-07-22 10:14 | XMS_ITS | Encounter Summary ---
Author Organization [facility] Address [address] [place] [address] Care Team Providers Care Entertainment & Media Correspondent Name Role Phone Ariella Montaño MD Primary Care Provider [phone] Reason for Visit * Reason Comments Med Refill Encounter Details Date Type Department Care Team ([facility] Contact Info) Description 07/12/2024 Refill [facility] [place] [address] [place] [address] Connie Bull PA [address] [place] [address] Social History Tobacco Use Types Packs/Day Years [...] Info) Description 10/09/2024 1:30 PM CDT Appointment [facility] [address] [place] [address] Ariella Montaño MD [address] [place] [address] documented as of this encounter Visit Diagnoses Not on filedocumented in this encounter Care Teams Entertainment & Media Correspondent Relationship Specialty Start Date End Date Ariella Montaño MD [address] [place] [address] PCP - General Family Practice 08/22/21 documented as of this encounter
--- OUTSIDE RECORDS SUMMARY | 2024-07-22 10:14 | XMS_ITS | Encounter Summary ---
Author Organization [facility] Address [address] [facility] [place] [address] Care Team Providers Care Sustainable Development Policy Analyst Name Role Phone Ariella Montaño MD Primary Care Provider [phone] Reason for Visit * Reason Onset Date Comments General 01/05/2023 Encounter Details Date Type Department Care Team (Late st Contact Info) Description 01/05/2023 Telephone [facility] [address] [place] [phone] Librado Peña MD [address] [address] General Social History Tobacco Use Types Packs/Day [...] Telephone Encounter - Any Martínez RN - 01/05/2023 3:06 PM CDT Spoke with pt. * Telephone Encounter - Any Martínez RN - 01/05/2023 2:53 PM CDT LVM to review post op meds. Gave nurse line #. documented in this encounter Plan of Treatment Upcoming Encounters Date Type Department Care Team (Late st Contact Info) Description 10/31/2024 10:00 AM CDT Office Visit [facility] [address] [facility] [address] [phone] Librado Peña MD [address] [address] documented as of this encounter Visit Diagnoses Not on filedocumented in this encounter Care Teams Sustainable Development Policy Analyst Relationship Specialty Start Date End Date Ariella Montaño MD [address] [place] [address] PCP - General 08/31/21 documented as of this encounter
--- OUTSIDE RECORDS SUMMARY | 2024-07-22 10:15 | XMS_ITS | Encounter Summary ---
Author Organization [facility] Address [address] [place] [address] Care Team Providers Care Bonderizer Name Role Phone Unavailable Primary Care Provider Unavailabl e Reason for Visit * Reason Comments Breast Exam, Routine, No Symptoms Encounter Details Date Type Department Care Team (Late st Contact Info) Description 06/08/2016 1:00 PM MARKET RESEARCH ASSOCIATE Office [facility] [address] [facility] [address] [place] [address] Amna Glez MD [address] [place] [address] Diffuse cystic mastopathy, unspecified laterality (Primary Dx) Social History Tobacco Use Types [...] Comments Blood Pressure 114/73 06/08/2016 12:48 PM MARKET RESEARCH ASSOCIATE Pulse 68 06/08/2016 12:48 PM MARKET RESEARCH ASSOCIATE Temperature - - Respiratory Rate - - Oxygen Saturation - - Inhaled Oxygen Concentration - - Weight 78.8 kg (173 lb 12.8 oz) 016 12:48 PM MARKET RESEARCH ASSOCIATE Height 154.9 cm (5' 1 ) 06/08/2016 12:4 8 PM MARKET RESEARCH ASSOCIATE Body Mass Index 32.84 06/08/2016 12:48 PM MARKET RESEARCH ASSOCIATE documented in this encounter Progress Notes * Amna Glez MD - 06/08/2016 12:51 PM CST PATIENT: Tari Pagan : 1965 DATE: 06/08/2016 Tari Pagan is a 51 y.o. female. She is here today for annual breast exam. She had a benign right ultrasound core biopsy September 2010. She has no complaints referable to her breast. She had a benign left excisional breast biopsy in 1994. She is 3, para 2, she was 11 at menarche and was 25 at first live . Maternal aunt had breast cancer in her early 50s. A paternal aunt had pancreatic cancer and a second maternal aunt had gastric cancer. 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 She is . She rarely drinks. She does not smoke. 10 point ROS: unremarkable No new breast complaints. She is still on hormone replacement for menopausal symptoms No past medical history on file. Past Surgical History Procedure Laterality Date ??? Hx breast surgery - other left breast tumor removed ??? Hx hysterectomy 2009 partial ??? 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 Hx gómez and bso ??? Hx core needle breast biopsy Right ??? Hx excisional biopsy Left Allergies Allergen Reactions ??? Codeine Nausea and Vomiting BP 114/73 mmHg Pulse 68 Ht 5' 1 (1.549 m) Wt 78.835 kg (173 lb 12.8 oz) BMI 32.86 kg/m2 ? No PHYSICAL EXAM: Well-developed, well-nourished, pleasant woman. Neck - no thyromegaly no cervical adenopathy SCF- no adenopathy Axilla -no adenopathy Breasts - Right breast:normal in appearance, no masses, skin changes or nipple discharge Left breast: normal in appearance, no masses, skin changes or nipple discharge Extremities - Good range of motion of shoulders, no lymphedema present IMAGING: films are reviewed. Mammogram: 05/29/2013 at [facility]; nem Mammogram: 06/04/2014 at [facility]; nem Mammogram: 06/07/2015 at [facility]; nem Mammogram: 06/08/2016 at [facility]; NEM, pending official reading IMPRESSION /PLAN: 51 y.o. woman with stable examination and screening mammogram I have examined her and personally reviewed her mammogram today I'll see her back as needed. She'll return in June 2017 for bilateral screening mammogram, If the official reading is okay She had questions for me today regarding hormone replacement therapy and will discuss it further with her front line leader The patient is asked to make an attempt to improve diet and exercise patterns to aid in breast cancer risk reduction. 15 minutes was spent in face to face with the patient Amna Glez MD.FACS. cc: Yulissa Bunn MD [address] [facility] [address] [place] [address] ET RESEARCH ASSOCIATE documented in this encounter Plan of Treatment Upcoming Encounters Date Type Department Care Team (Late st Contact Info) Description 10/09/2024 1:30 PM CDT Appointment [facility] [address] [place] [address] Ariella Montaño MD [address] [place] [address] documented as of this encounter Visit Diagnoses Diagnosis Diffuse cystic mastopathy, unspecified laterality- Primary documented in this encounter
--- OUTSIDE RECORDS SUMMARY | 2024-07-22 10:15 | XMS_ITS | Encounter Summary ---
Author Organization [facility] Address [address] [place] [address] Care Team Providers Care Electronic Assembler Group Leader Name Role Phone Ariella Montaño MD Primary Care Provider [phone] Encounter Details Date Type Department Care Team [...] Info) Description 10/09/2024 1:30 PM CDT Appointment [facility] [address] [place] [address] Ariella Montaño MD [address] [place] [address] documented as of this encounter Visit Diagnoses Not on filedocumented in this encounter Care Teams Electronic Assembler Group Leader Relationship Specialty Start Date End Date Ariella Montaño MD [address] [place] [address] PCP - General Family Practice 08/22/21 documented as of this encounter
--- OUTSIDE RECORDS SUMMARY | 2024-07-22 10:15 | XMS_ITS | Encounter Summary ---
Author Organization [facility] Address [address] [facility] Attn: [place] [address] Care Team Providers Care Mathematics Education Professor Name Role Phone Jessy Desai MD Primary Care Provi faviola Encounter Details Date Type Department Care Team (Latest Contact Info) Description 09/05/2020 Travel Social History Tobacco Use Types Packs/Day [...] Exposure Response Date Recorded In the last month, have you been in contact with someone who was confirmed or suspected to have Coronavirus / COVID-19? No / Unsure 09/05/2020 10:38 AM OFFICE INSPECTOR documented as of this encounter Plan of Treatment Upcoming Encounters Date Type Department Care Team (Late st Contact Info) Description 10/09/2024 1:30 PM CDT Appointment [facility] [address] [place] [address] Ariella Montaño MD [address] [place] [address] documented as of this encounter Visit Diagnoses Not on filedocumented in this encounter Care Teams Mathematics Education Professor Relationship Specialty Start Date End Date Jessy Desai MD [address] [place] [address] PCP - General Family Practice 06/09/18 08/21/21 documented as of this encounter
--- OUTSIDE RECORDS SUMMARY | 2024-07-22 10:15 | XMS_ITS | Encounter Summary ---
Author Organization [facility] Address [address] [facility] Attn: [place] [address] Care Team Providers Care Public Relations Manager Name Role Phone Jessy Desai MD Primary Care Provi faviola Encounter Details Date Type Department Care Team (Latest Contact Info) Description 09/06/2020 Travel Social History Tobacco Use Types Packs/Day [...] have Coronavirus / COVID-19? No / Unsure 09/06/2020 10:03 AM TUBE CUTTER OPERATOR documented as of this encounter Plan of Treatment Upcoming Encounters Date Type Department Care Team (Late st Contact Info) Description 10/09/2024 1:30 PM CDT Appointment [facility] [address] [place] [address] Ariella Montaño MD [address] [place] [address] documented as of this encounter Visit Diagnoses Not on filedocumented in this encounter Care Teams Public Relations Manager Relationship Specialty Start Date End Date Jessy Desai MD [address] [place] [address] PCP - General Family Practice 06/09/18 08/21/21 documented as of this encounter
--- OUTSIDE RECORDS SUMMARY | 2024-07-22 10:15 | XMS_ITS | Encounter Summary ---
Author Organization [facility] Address [address] [place] [address] Care Team Providers Care Life Skills Educator Name Role Phone Ariella Montaño MD Primary Care Provider [phone] Encounter Details Date Type Department Care Team (Late st Contact Info) Description 08/03/2023 External Device Data STL ABSTRACTION Provider, Abstract [...] CDT Appointment [facility] [address] [place] [address] Ariella Montaño MD [address] [place] [address] documented as of this encounter Visit Diagnoses Not on filedocumented in this encounter Care Teams Life Skills Educator Relationship Specialty Start Date End Date Ariella Montaño MD [address] [place] [address] PCP - General Family Practice 08/22/21 documented as of this encounter
--- OUTSIDE RECORDS SUMMARY | 2024-07-22 10:15 | XMS_ITS | Encounter Summary ---
Author Organization [facility] Address [address] [place] [address] Care Team Providers Care Manufacturing Recruiter Name Role Phone Ariella Montaño MD Primary Care Provider [phone] Reason for Referral * Radiology Services (Routine) - Closed Specialty Diagnoses / Procedures Referred By Contac t Referred To Contact Radiology Diagnoses Visit for screening mammogram Procedures MAMMO SCRN BILAT 3D ADÁN W OR WO CAD CHG SCREENING MAMMOGRAPHY BI 2-VIEW BREAST INC CAD CHG SCREENING DIGITAL BREAST TOMOSYNTHESIS BI Ariella Montaño MD [address] [place] [address] [facility] [address] [place] [address] Referral ID Status Reason Start Date Expiration Date Visits Re quested Visits Authorized [id number] Closed 08/31/2022 10/01/2023 1 1 ESPONDENCE CLERK Reason for Visit * Radiology Services (Routine) - Closed Specialty Diagnoses / Procedures Referred By Contac t Referred To Contact Radiology Diagnoses Visit for screening mammogram Procedures MAMMO SCRN BILAT 3D ADÁN W OR WO CAD CHG SCREENING MAMMOGRAPHY BI 2-VIEW BREAST INC CAD CHG SCREENING DIGITAL BREAST TOMOSYNTHESIS BI Ariella Montaño MD [address] [place] [address] [facility] [address] [place] [address] Referral ID Status Reason Start Date Expiration Date Visits Re quested Visits Authorized [id number] Closed 08/31/2022 10/01/2023 1 1 Encounter Details Date Type Department Care Team (Latest Contact Info) Description 09/07/2022 1:40 PM CORRESPONDENCE CLERK - 09/07/2022 11:59 PM CORRESPONDENCE CLERK Hospital Encounter [facility] [address] [place] [phone] Ariella Montaño MD [address] [place] [address] Discharge Disposition: Home or Self Care Social History Tobacco Use Types Packs/Day Years [...] suspected to have Coronavirus/COVID-19? No / Unsure 09/07/2022 1:43 PM CORRESPONDENCE CLERK documented as of this encounter Medications at Time of Discharge Medication Sig Dispensed Refills Start Date End Date flu vaccine quadrivalent 2019-, 6 mo+,,PF, (Flulaval Quad , PF,) 60 mcg (15 mcg x 4)/0.5 mL Syringe syringe TO BE ADMINISTERED BY A PHARMACIST 0.5 mL 09/06/2020 estradiol (ESTRACE) 1 mg tablet Take 1 mg by mouth daily. documented as of this encounter Plan of Treatment Upcoming Encounters Date Type Department Care Team (Late st Contact Info) Description 10/09/2024 1:30 PM CDT Appointment [facility] [address] [place] [phone] [place] [address] [place] [address] documented as of this encounter Procedures Procedure Name Priority Date/Time Associated Diagnosis Comments MAMMO 3D ADÁN SCREEN BILAT W OR WO CAD Routine 09/07/2022 1:55 PM CORRESPONDENCE CLERK Visit for screening mammogram documented in this encounter Results * MAMMO SCRN BILAT 3D ADÁN W OR WO CAD (09/07/2022 1:55 PM CORRESPONDENCE CLERK) Anatomical Region Laterality Modality Breast Bilateral Mammography 09/07/2022 1:56 PM CORRESPONDENCE CLERK Impressions 09/07/2022 3:56 PM CORRESPONDENCE CLERK IMPRESSION: 1. No concerning developing abnormality identified. OVERALL FINAL ASSESSMENT: ??BI-RADS CATEGORY 2: Benign findings RECOMMENDATIONS: ?? 1. Recommend annual mammography. Narrative 09/07/2022 3:56 PM CORRESPONDENCE CLERK BILATERAL SCREENING DIGITAL MAMMOGRAM WITH 3D TOMOSYNTHESIS AND CAD DATE: 09/07/2022 1:55 PM DICTATION LOCATION: [facility] HISTORY: Annual screening mammogram. TECHNIQUE: Standard images of both breasts were obtained on a digital system. 2D and 3D acquisitions were obtained of both breasts. CAD was utilized. COMPARISON: Studies dating back to 06/16/2018 BREAST COMPOSITION: Scattered fibroglandular densities FINDINGS: No concerning dominant masses, suspicious calcifications, parenchymal asymmetry or areas of architectural distortion are identified in either breast. There are postoperative changes within the left breast. Procedure Note Pool Sosa MD - 09/07/2022 BILATERAL SCREENING DIGITAL MAMMOGRAM WITH 3D TOMOSYNTHESIS AND CAD DATE: 09/07/2022 1:55 PM DICTATION LOCATION: [facility] HISTORY: Annual screening mammogram. TECHNIQUE: Standard images of both breasts were obtained on a digital system. 2D and 3D acquisitions were obtained of both breasts. CAD was utilized. COMPARISON: Studies dating back to 06/16/2018 BREAST COMPOSITION: Scattered fibroglandular densities FINDINGS: No concerning dominant masses, suspicious calcifications, parenchymal asymmetry or areas of architectural distortion are identified in either breast. There are postoperative changes within the left breast. IMPRESSION: 1. No concerning developing abnormality identified. OVERALL FINAL ASSESSMENT: BI-RADS CATEGORY 2: Benign findings RECOMMENDATIONS: 1. Recommend annual mammography. Ariella Montaño MD MAMMO ORDERABLES documented in this encounter Visit Diagnoses Diagnosis Visit for screening mammogram Other screening mammogram documented in this encounter Care Teams Manufacturing Recruiter Relationship Specialty Start Date End Date Ariella Montaño MD [address] [place] [address] PCP - General Family Practice 08/22/21 documented as of this encounter
--- OUTSIDE RECORDS SUMMARY | 2024-07-22 10:15 | XMS_ITS | Encounter Summary ---
Author Organization [facility] Address [address] [place] [address] Care Team Providers Care Recreation Superintendent Name Role Phone Unavailable Primary Care Provider Unavailabl e Reason for Referral * Outpatient Services (Routine) - Closed Specialty Diagnoses / Procedures Referred By Ulises parra Referred To Contact Diagnoses Abnormal mammogram Procedures MAMMO DIGITAL OBEDG Amna Stone MD [address] [facility] [place] [address] Referral ID Status Reason Start Date Expiration Date Visits Re quested Visits Authorized [id number] Closed 09/12/2010 03/11/2011 1 1 Reason for Visit * Outpatient Services (Routine) - Closed Specialty Diagnoses / Procedures Referred By Ulises parra Referred To Contact Diagnoses Abnormal mammogram Procedures MAMMO DIGITAL Amna Nick MD [address] [facility] [place] [address] Referral ID Status Reason Start Date Expiration Date Visits Re quested Visits Authorized [id number] Closed 09/12/2010 03/11/2011 1 1 Encounter Details Date Type Department Care Team (Latest Contact Info) Description 05/12/2011 12:43 PM CDT - 05/12/2011 11:59 PM CDT Hospital Encounter [facility] [address] [place] [address] Amna Glez MD [address] [place] [phone] Discharge Disposition: Home or Self Care Social [...] CDT Appointment [facility] [place] [address] [place] [address] Ariella Montaño MD [address] [place] [address] documented as of this encounter Procedures Procedure Name Priority Date/Time Associated Diagnosis Comments MAMMO DIAGNOSTIC BILATERAL W OR WO CAD Routine 05/12/2011 1:15 PM CDT Abnormal mammogram documented in this encounter Results * MAMMO DIGITAL DIAG BILAT (05/12/2011 1:15 PM CDT) Anatomical Region Laterality Modality Breast Bilateral Mammography 05/12/2011 1:14 PM CDT Narrative 05/13/2011 7:16 AM CDT BILATERAL DIAGNOSTIC DIGITAL MAMMOGRAMS WITH COMPUTER ASSISTED DIAGNOSIS DATE OF EXAM: ?? 05/12/11 INDICATION: History of benign breast disease, yearly examination Comparison made to multiple prior studies dating back to 2008 BREAST COMPOSITION: ??Heterogeneously dense which limits the sensitivity of mammography FINDINGS: No dominant masses or concerning microcalcifications identified. There is an area of architectural distortion within the left breast centrally on the CC view is unchanged from 2008 and likely represents site of patient's previous excisional biopsy. A curved biopsy site marker is identified within the lateral aspect of the right breast at the 9:00 position. OVERALL ASSESSMENT: ??BI-RADS category 2 - Benign findings RECOMMENDATIONS: Recommend continued annual mammography. Procedure Note Pool Sosa MD - 05/13/2011 BILATERAL DIAGNOSTIC DIGITAL MAMMOGRAMS WITH COMPUTER ASSISTED DIAGNOSIS DATE OF EXAM: 05/12/11 INDICATION: History of benign breast disease, yearly examination Comparison made to multiple prior studies dating back to 2008 BREAST COMPOSITION: Heterogeneously dense which limits the sensitivity of mammography FINDINGS: No dominant masses or concerning microcalcifications identified. There is an area of architectural distortion within the left breast centrally on the CC view is unchanged from 2009 and likely represents site of patient's previous excisional biopsy. A curved biopsy site marker is identified within the lateral aspect of the right breast at the 9:00 position. OVERALL ASSESSMENT: BI-RADS category 2 - Benign findings RECOMMENDATIONS: Recommend continued annual mammography. Amna Glez MD MAMMO ORDERABLES documented in this encounter Visit Diagnoses Diagnosis Abnormal mammogram Abnormal mammogram, unspecified documented in this encounter
--- OUTSIDE RECORDS SUMMARY | 2024-07-22 10:15 | XMS_ITS | Encounter Summary ---
Author Organization [facility] Address [address] [address] Care Team Providers Care Care Clinician Name Role Phone Unavailable Primary Care Provider Unavailabl e Reason for Referral * Outpatient Services (Routine) - Closed Specialty Diagnoses / Procedures Referred By Contac t Referred To Contact Diagnoses Diffuse cystic mastopathy, unspecified laterality Procedures MAMMO DIG SCREEN BILAT W 3D ADÁN Amna Glez MD [address] [address] [place] [address] Referral ID Status Reason Start Date Expiration Date Visits Re quested Visits Authorized [id number] Closed 06/07/2015 07/07/2016 1 1 NEER DESIGN AND CONSTRUCTION Reason for Visit * Reason Comments Breast Exam, Routine, No Symptoms Diffus e cystic mastopathy, unspecified laterality - annual ck Encounter Details Date Type Department Care Team (Late st Contact Info) Description 06/07/2015 12:30 PM ENGINEER DESIGN AND CONSTRUCTION Office Visit [facility] BREAST SURGERY - [place] CLRKSN [address] [facility] [address] [place] [id number] Amna Glez MD [address] [place] [address] Diffuse cystic mastopathy, unspecified laterality (Primary [...] Sign Reading Time Taken Comments Blood Pressure 107/66 06/07/2015 12:37 PM ENGINEER DESIGN AND CONSTRUCTION Pulse 72 06/07/2015 12:37 PM ENGINEER DESIGN AND CONSTRUCTION Temperature - - Respiratory Rate - - Oxygen Saturation - - Inhaled Oxygen Concentration - - Weight 81.6 kg (180 lb) 06/07/2015 12:37 PM ENGINEER DESIGN AND CONSTRUCTION Height 157.5 cm (5' 2 ) 06/07/2015 12:37 PM ENGINEER DESIGN AND CONSTRUCTION Body Mass Index 32.92 06/07/2015 12:37 PM ENGINEER DESIGN AND CONSTRUCTION documented in this encounter Progress Notes * Amna Glez MD - 06/07/2015 12:47 PM CST PATIENT: Tari Pagan : 1965 DATE: 06/07/2015 Tari Pagan is a 50 y.o. female. 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 She is . She rarely drinks. She does not smoke. 10 point ROS: unremarkable No new breast complaints. She just started premarin for menopausal symptoms No past medical history on file. Past Surgical History Procedure Laterality Date ??? Hx breast surgery - other left breast tumor removed ??? Hx hysterectomy 2009 partial ??? 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 Hx gómez and bso ??? Hx core needle breast biopsy Right Allergies Allergen Reactions ??? Codeine Nausea and Vomiting Ht 5' 2 (1.575 m) ? No PHYSICAL EXAM: Well-developed, well-nourished, pleasant [...] IMAGING: films are reviewed. Mammogram: 05/29/2013 at [facility]; nem Mammogram: 06/04/2014 at [facility]; nem Mammogram: 06/07/2015 at [facility]; nem, pending official reading IMPRESSION /PLAN: 50 y.o. woman with stable examination and screening mammogram I have personally reviewed her mammogram today I'll see her back in June 2016 for bilateral mammogram, If the official reading is okay Amna Glez MD.FACS. cc: Yulissa Bunn MD [address] [facility] [address] [place] [address] [employer] documented in this encounter Plan of Treatment Upcoming Encounters Date Type Department Care Team (Late st Contact Info) Description 10/09/2024 1:30 PM CDT Appointment [facility] [place] [address] [place] [address] Ariella Montaño MD [address] [place] [address] documented as of this encounter Results * MAMMO DIG SCREEN BILAT W 3D ADÁN (06/08/2016 12:37 PM ENGINEER DESIGN AND CONSTRUCTION) Anatomical Region Laterality Modality Breast Bilateral Mammography 06/08/2016 12:3 7 PM ENGINEER DESIGN AND CONSTRUCTION Narrative 06/09/2016 7:59 AM ENGINEER DESIGN AND CONSTRUCTION BILATERAL DIGITAL SCREENING MAMMOGRAM WITH TOMOSYNTHESIS AND CAD DATE: 06/08/2016 12:37 PM HISTORY: Routine yearly screening mammogram. TECHNIQUE: Standard images of both breasts were obtained on a digital system. 2-D and 3-D acquisitions were obtained of both breasts. CAD was utilized. COMPARISON: Multiple prior studies dating back to 05/29/2013. BREAST COMPOSITION: Heterogeneously dense, which limits the sensitivity of mammography. FINDINGS: No concerning dominant masses, suspicious calcifications, parenchymal asymmetry or areas of architectural distortion are identified in either breast. The asymmetry within the superior aspect of the right breast posteriorly on the MLO projection is unchanged dating back to 2012 and appears similar to the 2011 exam, consistent with benign breast tissue. There are postoperative changes of an ultrasound-guided core biopsy within the right breast. There are additional postoperative changes within the left breast consistent with an excisional biopsy. OVERALL ASSESSMENT: ??BI-RADS Category 2 - Benign findings. RECOMMENDATIONS: Recommend continued annual mammography. Dictated at [facility] Procedure Note Pool Sosa MD - 06/09/2016 BILATERAL DIGITAL SCREENING MAMMOGRAM WITH TOMOSYNTHESIS AND CAD DATE: 06/08/2016 12:37 PM HISTORY: Routine yearly screening mammogram. TECHNIQUE: Standard images of both breasts were obtained on a digital system. 2-D and 3-D acquisitions were obtained of both breasts. CAD was utilized. COMPARISON: Multiple prior studies dating back to 05/29/2013. BREAST COMPOSITION: Heterogeneously dense, which limits the sensitivity of mammography. FINDINGS: No concerning dominant masses, suspicious calcifications, parenchymal asymmetry or areas of architectural distortion are identified in either breast. The asymmetry within the superior aspect of the right breast posteriorly on the MLO projection is unchanged dating back to 2012 and appears similar to the 2011 exam, consistent with benign breast tissue. There are postoperative changes of an ultrasound-guided core biopsy within the right breast. There are additional postoperative changes within the left breast consistent with an excisional biopsy. OVERALL ASSESSMENT: BI-RADS Category 2 - Benign findings. RECOMMENDATIONS: Recommend continued annual mammography. Dictated at [facility] Amna Glez MD MAMMO ORDERABLES documented in this encounter Visit Diagnoses Diagnosis Diffuse cystic mastopathy, unspecified laterality- Primary Diffuse cystic mastopathy, unspecified laterality documented in this encounter
--- OUTSIDE RECORDS SUMMARY | 2024-07-22 10:15 | XMS_ITS | Encounter Summary ---
Author Organization [facility] Address [address] [place] [address] Care Team Providers Care Customer Care Assistant Name Role Phone Ariella Montaño MD Primary Care Provider [phone] Encounter Details Date Type Department Care Team (Late st Contact Info) Description 07/27/2023 External Device Data STL ABSTRACTION Provider, Abstract [...] Info) Description 10/09/2024 1:30 PM CDT Appointment [facility] [place] [address] [place] [address] Ariella Montaño MD [address] [place] [address] documented as of this encounter Visit Diagnoses Not on filedocumented in this encounter Care Teams Customer Care Assistant Relationship Specialty Start Date End Date Ariella Montaño MD [address] [place] [address] PCP - General Family Practice 08/22/21 documented as of this encounter
--- OUTSIDE RECORDS SUMMARY | 2024-07-22 10:15 | XMS_ITS | Encounter Summary ---
Author Organization [facility] Address [address] [place] [address] Care Team Providers Care Vehicle Painter Name Role Phone Ariella Montaño MD Primary Care Provider [phone] Encounter Details Date Type Department Care Team (Late st Contact Info) Description 01/18/2024 External Device Data STL ABSTRACTION Provider, Abstract [...] Info) Description 10/09/2024 1:30 PM CDT Appointment [facility] [place] [place] [address] Ariella Montaño MD [address] [place] [address] documented as of this encounter Visit Diagnoses Not on filedocumented in this encounter Care Teams Vehicle Painter Relationship Specialty Start Date End Date Ariella Montaño MD [address] [place] [address] PCP - General Family Practice 08/22/21 documented as of this encounter
--- OUTSIDE RECORDS SUMMARY | 2024-07-22 10:15 | XMS_ITS | Encounter Summary ---
Author Organization [facility] Address [address] [place] [address] Care Team Providers Care National Sales Trainer Name Role Phone Unavailable Primary Care Provider Unavailabl e Reason for Referral * Outpatient Services (Routine) - Closed Specialty Diagnoses / Procedures Referred By Contsasha t Referred To Contact Diagnoses Abnormal mammogram . Procedures MAMMO BREAST US LEFT LTD Amna Glez MD [address] [facility] [place] [address] Referral ID Status Reason Start Date Expiration Date Visits Re quested Visits Authorized [id number] Closed 06/10/2015 07/10/2016 1 1 CE AND FIRE DISPATCHER Reason for Visit * Outpatient Services (Routine) - Closed Specialty Diagnoses / Procedures Referred By Contac t Referred To Contact Diagnoses Abnormal mammogram . Procedures MAMMO BREAST US LEFT LTD Amna Glez MD [address] [facility] [place] [address] Referral ID Status Reason Start Date Expiration Date Visits Re quested Visits Authorized [id number] Closed 06/10/2015 07/10/2016 1 1 Encounter Details Date Type Department Care Team (Latest Contact Info) Description 06/12/2015 11:00 AM POLICE AND FIRE DISPATCHER - 06/12/2015 11:59 PM POLICE AND FIRE DISPATCHER Hospital Encounter [facility] [address] [place] [address] Amna Glez MD [address] [place] [phone] Discharge Disposition: Home or Self Care Social [...] Info) Description 10/09/2024 1:30 PM CDT Appointment [facility] [place] [address] [place] [address] Ariella Montaño MD [address] [place] [address] documented as of this encounter Procedures Procedure Name Priority Date/Time Associated Diagnosis Comments MAMMO BREAST US LEFT LTD Routine 06/12/2015 11:31 AM POLICE AND FIRE DISPATCHER Abnormal mammogram documented in this encounter Results * MAMMO BREAST US LEFT LTD (06/12/2015 11:31 AM POLICE AND FIRE DISPATCHER) Anatomical Region Laterality Modality Left Ultrasound 06/12/2015 11:1 7 AM POLICE AND FIRE DISPATCHER Narrative 06/17/2015 8:05 AM POLICE AND FIRE DISPATCHER LEFT BREAST ULTRASOUND LIMITED ??06/12/15 HISTORY: Abnormal screening mammogram which demonstrated an area of marked asymmetry in the upper central aspect of the left breast. FINDINGS: ??An ultrasound of left breast was performed. At the 12:30 position of the left breast a cluster of cysts is identified. This correlates with patient's mammographic abnormality. Overall assessment: BI-RADS category 1. Negative. RECOMMENDATION: Annual mammography is recommended. ?? Procedure Note Mamie Cole MD - 06/17/2015 LEFT BREAST ULTRASOUND LIMITED 06/12/15 HISTORY: Abnormal screening mammogram which demonstrated an area of marked asymmetry in the upper central aspect of the left breast. FINDINGS: An ultrasound of left breast was performed. At the 12:30 position of the left breast a cluster of cysts is identified. This correlates with patient's mammographic abnormality. Overall assessment: BI-RADS category 1. Negative. RECOMMENDATION: Annual mammography is recommended. Amna Glez MD MAMMO ORDERABLES documented in this encounter Visit Diagnoses Diagnosis Abnormal mammogram Abnormal mammogram, unspecified documented in this encounter
--- OUTSIDE RECORDS SUMMARY | 2024-07-22 10:15 | XMS_ITS | Encounter Summary ---
Author Organization [facility] Address [address] [place] [address] Care Team Providers Care Singeing Torch Operator Name Role Phone Unavailable Primary Care Provider Unavailabl e Reason for Visit * Reason Comments Breast Exam, Routine, No Symptoms annual ck Encounter Details Date Type Department Care Team (Late st Contact Info) Description 05/12/2011 2:00 PM CDT Office Visit [facility] [address] [facility] [address] [place] [address] Amna Glez MD [address] [place] [address] Abnormal mammogram (Primary Dx) Social History Tobacco Use Types [...] Sign Reading Time Taken Comments Blood Pressure 109/60 05/12/2011 2:27 PM CDT Pulse - - Temperature - - Respiratory Rate - - Oxygen Saturation - - Inhaled Oxygen Concentration - - Weight 75.3 kg (166 lb) 05/12/2011 2:27 PM CDT Height 157.5 cm (5' 2 ) 05/12/2011 2:27 PM CDT Body Mass Index 30.36 05/12/2011 2:27 PM CDT documented in this encounter Progress Notes * Amna Glez MD - 05/12/2011 2:40 PM CDT PATIENT: TARI PAGAN : 1965 DATE: 05/12/2011 TARI PAGAN is a 46 y.o. female. She is here today for annual breast exam. She had a benign right ultrasound core biopsy September 2010. She has no complaints referable to her breast. She's had a benign left excisional breast biopsy in 1994. She is 3, para 2, she was 11 at menarche andwas 25 at first live . Maternal aunt had breast cancer in her early 50s. A paternal aunt had pancreatic cancer and a second maternal aunt had gastric cancer. 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 She is . She rarely drinks. She does not smoke. ROS: unremarkable BP 109/60 Ht 5' 2 (1.575 m) Wt 166 lb (75.297 kg) BMI 30.36 kg/m2 PHYSICAL EXAM: Well-developed, well-nourished, pleasant woman. Neck - no thyromegaly no cervical adenopathy SCF- no adenopathy Chest - clear to auscultation Cardiovascular - regular rate and rhythm Axilla -no adenopathy Breasts - Right breast:normal in appearance, no masses, skin changes or nipple discharge Left breast: normal in appearance, no masses, skin changes or nipple discharge Abdomen - liver and spleen not palpably enlarged Extremities - Good range of motion of shoulders, no lymphedema present IMAGING: outside films are reviewed. Mammogram: May 26, 2010 and September 01, 2010 at the imaging [facility] in [place], [place]. Bilateral asymmetric densities, which persists on spot compression views. Bilateral breast ultrasound: September 01, 2010. No abnormalities are seen in the left breast. In theright breast at 10:00. There is a simple cyst. In the right breast at 9:00. There is a complex cystic structure a for which a biopsy has been recommended Right ultrasound-guided core biopsy: 09/08/2010 at [facility]; [facility] Mammogram: 05/12/2011 at [facility]; [facility] IMPRESSION /PLAN: Stable examination and screening mammogram I'll see her back in May 2012 for bilateral mammogram Amna Glez MD.FACS. cc: Yulissa Tripp [address] [facility] [address] [place] [address] documented in this encounter Plan of Treatment Upcoming Encounters Date Type Department Care Team (Late st Contact Info) Description 10/09/2024 1:30 PM CDT Appointment [facility] [address] [place] [phone] Ariella Montaño MD [address] [place] [address] documented as of this encounter Visit Diagnoses Diagnosis Abnormal mammogram- Primary Abnormal mammogram, unspecified documented in this encounter
--- OUTSIDE RECORDS SUMMARY | 2024-07-22 10:15 | XMS_ITS | Encounter Summary ---
Author Organization [facility] Address [address] [place] [address] Care Team Providers Care Telephone Directory Deliverer Name Role Phone Unavailable Primary Care Provider Unavailabl e Encounter Details Date Type Department Care Team (Late st Contact Info) Description 09/09/2010 Abstract [facility] BREAST SURGERY - [place] [facility] [address] [place] [address] Yulissa Bunn MD [address] [facility] [address] [place] [address] Social History Tobacco Use Types Packs/Day Years [...] Description 10/09/2024 1:30 PM CDT Appointment [facility] [address]i Catalan [address] [place] [address] Ariella Montaño MD [address] [place] [address] documented as of this encounter Procedures Procedure Name Priority Date/Time Associated Diagnosis Comments MAMMO DIAGNOSTIC BILATERAL W OR WO CAD Routine 09/01/2010 MAMMO SCREEN BILAT W OR WO CAD Routine 05/26/2010 MAMMO BREAST US LT COMPLETE Routine 11/06/2009 MAMMO BREAST US LT COMPLETE Routine 05/01/2009 MAMMO SCREEN BILAT W OR WO CAD Routine 05/01/2009 MAMMO BREAST US LT COMPLETE Routine 10/19/2008 MAMMO BREAST US LT COMPLETE Routine 03/06/2008 MAMMO DIAGNOSTIC BILATERAL W OR WO CAD Routine 03/06/2008 MAMMO BREAST US LT COMPLETE Routine 09/02/2007 documented in this encounter Results * MAMMO DIGITAL DIAG BILAT (09/01/2010) Anatomical Region Laterality Modality Breast Bilateral Other Yulissa Bunn MD MAMMO ORDERABLES * MAMMO DIGITAL SCREEN BILAT (05/26/2010) Anatomical Region Laterality Modality Breast Bilateral Other Yulissa Bunn MD MAMMO ORDERABLES * MAMMO BREAST US LT (11/06/2009) Anatomical Region Laterality Modality Breast Left Other Yulissa Bunn MD MAMMO ORDERABLES * MAMMO DIGITAL SCREEN BILAT (05/01/2009) Anatomical Region Laterality Modality Breast Bilateral Other Yulissa Bunn MD MAMMO ORDERABLES * MAMMO BREAST US LT (05/01/2009) Anatomical Region Laterality Modality Breast Left Other Yulissa Bunn MD MAMMO ORDERABLES * MAMMO BREAST US LT (10/19/2008) Anatomical Region Laterality Modality Breast Left Other Yulissa Bunn MD MAMMO ORDERABLES * MAMMO DIGITAL DIAG BILAT (03/06/2008) Anatomical Region Laterality Modality Breast Bilateral Other Yulissa Bunn MD MAMMO ORDERABLES * MAMMO BREAST US LT (03/06/2008) Anatomical Region Laterality Modality Breast Left Other Yulissa Bunn MD MAMMO ORDERABLES * MAMMO BREAST US LT (09/02/2007) Anatomical Region Laterality Modality Breast Left Other Yulissa Bunn MD MAMMO ORDERABLES documented in this encounter Visit Diagnoses Not on filedocumented in this encounter
--- OUTSIDE RECORDS SUMMARY | 2024-07-22 10:15 | XMS_ITS | Encounter Summary ---
Author Organization [facility] Address [address] [place] [address] Care Team Providers Care Network Systems Integrator Name Role Phone Ariella Montaño MD Primary Care Provider [phone] Encounter Details Date Type Department Care Team (Late st Contact Info) Description 12/21/2023 External Device Data STL ABSTRACTION Provider, Abstract [...] Description 10/09/2024 1:30 PM CDT Appointment [facility] [address] [place] [address] Ariella Montaño MD [address] [place] [address] documented as of this encounter Visit Diagnoses Not on filedocumented in this encounter Care Teams Network Systems Integrator Relationship Specialty Start Date End Date Ariella Montaño MD [address] [place] [address] PCP - General Family Practice 08/22/21 documented as of this encounter
--- OUTSIDE RECORDS SUMMARY | 2024-07-22 10:15 | XMS_ITS | Encounter Summary ---
Author Organization [facility] Address [address] [place] [address] Care Team Providers Care Certified Orthoptist Name Role Phone Ariella Montaño MD Primary Care Provider [phone] Encounter Details Date Type Department Care Team (Late st Contact Info) Description 11/16/2023 External Device Data STL ABSTRACTION Provider, Abstract [...] Info) Description 10/09/2024 1:30 PM CDT Appointment [facility] [address] Catalan [address] [place] [address] Ariella Montaño MD [address] [place] [address] documented as of this encounter Visit Diagnoses Not on filedocumented in this encounter Care Teams Certified Orthoptist Relationship Specialty Start Date End Date Ariella Montaño MD [address] [place] [address] PCP - General Family Practice 08/22/21 documented as of this encounter
--- OUTSIDE RECORDS SUMMARY | 2024-07-22 10:15 | XMS_ITS | Encounter Summary ---
Author Organization [facility] Address [address] [place] [address] Care Team Providers Care Finance Attorney Name Role Phone Ariella Montaño MD Primary Care Provider [phone] Encounter Details Date Type Department Care Team [...] CDT Appointment [facility] [address] Catalan [address] [place] [address] Ariella Montaño MD [address] [place] [address] documented as of this encounter Visit Diagnoses Not on filedocumented in this encounter Care Teams Finance Attorney Relationship Specialty Start Date End Date Ariella Montaño MD [address] [place] [address] PCP - General Family Practice 08/22/21 documented as of this encounter
--- OUTSIDE RECORDS SUMMARY | 2024-07-22 10:15 | XMS_ITS | Encounter Summary ---
Author Organization [facility] Address [address] [facility] Attn: Epic Prelude ADT [place] [address] Care Team Providers Care Alodize Machine Helper Name Role Phone Ariella Montaño MD Primary Care Provider [phone] Encounter Details Date Type Department Care Team (Latest Contact Info) Description 08/22/2021 Travel Social History Tobacco Use Types Packs/Day [...] have Coronavirus / COVID-19? No / Unsure 08/22/2021 2:52 PM PROFESSOR OF LITERACY documented as of this encounter Plan of Treatment Upcoming Encounters Date Type Department Care Team (Late st Contact Info) Description 10/09/2024 1:30 PM CDT Appointment [facility] Osmani Catalan [address] [place] [address] Ariella Montaño MD [address] [place] [address] documented as of this encounter Visit Diagnoses Not on filedocumented in this encounter Care Teams Alodize Machine Helper Relationship Specialty Start Date End Date Ariella Montaño MD [address] [place] [address] PCP - General Family Practice 08/22/21 documented as of this encounter
--- OUTSIDE RECORDS SUMMARY | 2024-07-22 10:15 | XMS_ITS | Encounter Summary ---
Author Organization [facility] Address [address] [place] [address] Care Team Providers Care Group Fitness Department Head Name Role Phone Unavailable Primary Care Provider Unavailabl e Reason for Referral * Outpatient Services (Routine) - Closed Specialty Diagnoses / Procedures Referred By Ulises t Referred To Contact Diagnoses Abnormal mammogram Procedures MAMMO DIGITAL DIAG BILAT Amna Glez MD [address] [place] [address] Referral ID Status Reason Start Date Expiration Date Visits Re quested Visits Authorized [id number] Closed 05/12/2011 05/11/2012 1 1 Encounter Details Date Type Department Care Team (Late st Contact Info) Description 05/12/2011 Orders Only [facility] [address] [place] [address] Amna Glez MD [address] [place] [address] Abnormal mammogram (Primary Dx) Social History [...] Info) Description 10/09/2024 1:[address] [facility] Osmani Catal[place] [address] [place] [address] Ariella Montaño MD [address] [place] [address] documented as of this encounter Results * MAMMO DIGITAL DIAG BILAT (05/16/2012 2:05 PM CDT) Anatomical Region Laterality Modality Breast Bilateral Mammography 05/16/2012 2:04 PM CDT Narrative 05/17/2012 3:38 PM CDT EXAM: BILATERAL DIAGNOSTIC FULL FIELD DIGITAL MAMMOGRAPHY WITH CAD 05/16/12 HISTORY: ??History of benign bilateral biopsies. TECHNIQUE: Diagnostic views of both breasts were performed using full field digital mammography. Computer aided diagnosis was performed. ?? Comparison is made with prior studies dated 05/12/2011 and older BREAST COMPOSITION: Heterogeneously dense, which lowers the sensitivity of mammography. FINDINGS: ??Architectural distortion in the upper central left breast is unchanged, related to prior benign excisional biopsy. No suspicious mass, suspicious calcifications or new areas of architectural distortion are identified in either breast. CAD was utilized. Overall assessment: BI-RADS category 2. Benign findings. Annual mammography is recommended. Procedure Note Guadalupe Sánchez MD - 05/17/2012 EXAM: BILATERAL DIAGNOSTIC FULL FIELD DIGITAL MAMMOGRAPHY WITH CAD 05/16/12 HISTORY: History of benign bilateral biopsies. TECHNIQUE: Diagnostic views of both breasts were performed using full field digital mammography. Computer aided diagnosis was performed. Comparison is made with prior studies dated 05/12/2011 and older BREAST COMPOSITION: Heterogeneously dense, which lowers the sensitivity of mammography. FINDINGS: Architectural distortion in the upper central left breast is unchanged, related to prior benign excisional biopsy. No suspicious mass, suspicious calcifications or new areas of architectural distortion are identified in either breast. CAD was utilized. Overall assessment: BI-RADS category 2. Benign findings. Annual mammography is recommended. Amna Glez MD MAMMO ORDERABLES documented in this encounter Visit Diagnoses Diagnosis Abnormal mammogram- Primary Abnormal mammogram, unspecified Abnormal mammogram Abnormal mammogram, unspecified documented in this encounter
--- OUTSIDE RECORDS SUMMARY | 2024-07-22 10:15 | XMS_ITS | Encounter Summary ---
Author Organization [facility] Address [address] [place] [address] Care Team Providers Care Organic Chemistry Professor Name Role Phone Unavailable Primary Care Provider Unavailabl e Reason for Referral * Outpatient Services (Routine) - Closed Specialty Diagnoses / Procedures Referred By Ulises parra Referred To Contact Diagnoses Diffuse cystic mastopathy Procedures MAMMO DIGITAL SCREEN Amna Stone MD [address] [facility] [place] [address] Referral ID Status Reason Start Date Expiration Date Visits Re quested Visits Authorized [id number] Closed 05/16/2012 05/30/2013 1 1 Reason for Visit * Outpatient Services (Routine) - Closed Specialty Diagnoses / Procedures Referred By Contsasha t Referred To Contact Diagnoses Diffuse cystic mastopathy Procedures MAMMO DIGITAL SCREEN Amna Stone MD [address] [facility] [place] [address] Referral ID Status Reason Start Date Expiration Date Visits Re quested Visits Authorized [id number] Closed 05/16/2012 05/30/2013 1 1 Encounter Details Date Type Department Care Team (Latest Contact Info) Description 05/29/2013 1:26 PM CDT - 05/29/2013 11:59 PM CDT Hospital Encounter [facility] [place] [address] [place] [address] Amna Glez MD [address] [place] [address] Discharge Disposition: Home or Self Care Social [...] Info) Description 10/09/2024 1:30 PM CDT [facility] [address] [place] [address] Ariella Montaño MD [address] [place] [address] documented as of this encounter Procedures Procedure Name Priority Date/Time Associated Diagnosis Comments MAMMO SCREEN BILAT W OR WO CAD Routine 05/29/2013 2:10 PM CDT Diffuse cystic mastopathy documented in this encounter Results * MAMMO DIGITAL SCREEN BILAT (05/29/2013 2:10 PM CDT) Anatomical Region Laterality Modality Breast Bilateral Mammography 05/29/2013 2:09 PM CDT Narrative 06/06/2013 11:38 AM QUICK PRINT OPERATOR BILATERAL FULL FIELD DIGITAL SCREENING MAMMOGRAM WITH CAD 05/29/13 HISTORY: Routine Screening. TECHNIQUE: Full field digital screening mammography of both breasts were obtained. COMPARISON: ??May 2012 and May 2011 and April 2009 BREAST PARENCHYMAL COMPOSITION: Heterogeneously dense, which lowers the sensitivity of mammography. FINDINGS: No new dominant masses, suspicious calcifications, parenchymal asymmetry or areas of architectural distortion are identified in either breast. Since the prior study, there has been no significant interval change. The computer aided detection system was utilized. OVERALL ASSESSMENT: ??BI-RADS category 1: Negative. RECOMMENDATION: Annual mammography is recommended. [facility] Procedure Note Mamie Cole MD - 06/06/2013 BILATERAL FULL FIELD DIGITAL SCREENING MAMMOGRAM WITH CAD 05/29/13 HISTORY: Routine Screening. TECHNIQUE: Full field digital screening mammography of both breasts were obtained. COMPARISON: May 2012 and May 2011 and April 2009 BREAST PARENCHYMAL COMPOSITION: Heterogeneously dense, which lowers the sensitivity of mammography. FINDINGS: No new dominant masses, suspicious calcifications, parenchymal asymmetry or areas of architectural distortion are identified in either breast. Since the prior study, there has been no significant interval change. The computer aided detection system was utilized. OVERALL ASSESSMENT: BI-RADS category 1: Negative. RECOMMENDATION: Annual mammography is recommended. Dictated from [facility] More[facility] Amna Glez MD MAMMO ORDERABLES documented in this encounter Visit Diagnoses Diagnosis Diffuse cystic mastopathy documented in this encounter
--- OUTSIDE RECORDS SUMMARY | 2024-07-22 10:15 | XMS_ITS | Encounter Summary ---
Author Organization [facility] Address [address] [place] [address] Care Team Providers Care Chemical Test Engineer Name Role Phone Unavailable Primary Care Provider Unavailabl e Reason for Visit * Outpatient Services (Routine) - Closed Specialty Diagnoses / Procedures Referred By Ulises t Referred To Contact Diagnoses Abnormal mammogram Procedures MAMMO BREAST US RT Amna Glez MD [address] [place] [address] Referral ID Status Reason Start Date Expiration Date Visits Re quested Visits Authorized [id number] Closed 09/08/2010 03/07/2011 1 1 Encounter Details Date Type Department Care Team (Latest Contact Info) Description 09/08/2010 1:00 PM STOCK HOLDER - 09/08/2010 11:59 PM STOCK HOLDER Hospital Encounter [facility] [place] Catal[place] [address] [place] [address] Amna Glez MD [address] [place] [address] Discharge Disposition: Home or Self Care Social [...] on file documented as of this encounter H&P Notes * Stl Scanning, Him - 09/18/2010 10:39 AM STOCK HOLDER documented in this encounter Miscellaneous Notes * Scanned Form - Stl Scanning, Him - 09/12/2010 6:56 AM STOCK HOLDER * Scanned Form - Stl Scanning, [facility] - 09/12/2010 6:31 AM STOCK HOLDER documented in this encounter Plan of Treatment Upcoming Encounters Date Type Department Care Team (Late st Contact Info) Description 10/09/2024 1:30 PM CDT Appointment [facility] [place] Catal[place] [address] [place] [address] Ariella Montaño MD [address] [place] [address] documented as of this encounter Procedures Procedure Name Priority Date/Time Associated Diagnosis Comments MAMMO BREAST US RT COMPLETE Routine 09/08/2010 3:15 PM STOCK HOLDER Abnormal mammogram documented in this encounter Results * MAMMO BREAST US RT (09/08/2010 3:15 PM STOCK HOLDER) Anatomical Region Laterality Modality Breast Right Ultrasound Impressions 09/09/2010 4:41 PM STOCK HOLDER : Technically successful ultrasound-guided core biopsy with tissue marker placement. Narrative 09/09/2010 4:41 PM STOCK HOLDER ULTRASOUND-GUIDED CORE BIOPSY OF THE RIGHT BREAST, TISSUE MARKER CLIP PLACEMENT, UNILATERAL DIGITAL MAMMOGRAM DATE: 09/08/2010 HISTORY: Patient has a right breast mass. An ultrasound-guided core biopsy and specimen has been recommended. A right breast ultrasound was performed. This demonstrates at the 9:00 periareolar position, what appears to be either a solid mass or a cluster of cysts with debris. This measures 7 x 5 x 6 mm in size. An ultrasound-guided core biopsy of this is recommended. PROCEDURE AND FINDINGS: The risks and potential benefits of the procedure were discussed with the patient and written informed was obtained. After sterile preparation of the skin, 1% lidocaine was utilized for local anesthesia. A 10 gauge vacuum assisted core biopsy needle was advanced through the lesion of interest using sonographic guidance. A total of 2 tissue cores were obtained throughout the lesion. A tissue marker clip was then placed at the biopsy site. Hemostasis was achieved. A sterile bandage and an ice pack were applied. A right breast full field digital diagnostic mammogram was obtained post-procedure and this demonstrates that the tissue marker clip is in the expected position. CAD was utilized. The patient tolerated the procedure well and there was no evidence of immediate complication. The patient was given verbal as well as written post-procedure instructions prior to the release from the department. The tissue cores were submitted to surgical pathology in formalin for histological analysis. Procedure Note Mamie Ruvalcaba - 09/09/2010 ULTRASOUND-GUIDED CORE BIOPSY OF THE RIGHT BREAST, TISSUE MARKER CLIPPLACEMENT, UNILATERAL DIGITAL MAMMOGRAM DATE: 09/08/2010 HISTORY: Patient has a right breast mass. An ultrasound-guided core biopsyand specimen has been recommended. A right breast ultrasound wasperformed. This demonstrates at the 9:00 periareolar position, whatappears to be either a solid mass or a cluster of cysts with debris. Thismeasures 7 x 5 x 6 mm in size. An ultrasound-guided core biopsy of this isrecommended. PROCEDURE AND FINDINGS: The risks and potential benefits of the procedure were discussed with thepatient and written informed was obtained. After sterile preparation ofthe skin, 1% lidocaine was utilized for local anesthesia. A 10 gaugevacuum assisted core biopsy needle was advanced through the lesion ofinterest using sonographic guidance. A total of 2 tissue cores wereobtained throughout the lesion. A tissue marker clip was then placed atthe biopsy site. Hemostasis was achieved. A sterile bandage and an icepack were applied. A right breast full field digital diagnostic mammogram was obtainedpost- procedure and this demonstrates that the tissue marker clip is in theexpected position. CAD was utilized. The patient tolerated the procedure well and there was no evidence ofimmediate complication. The patient was given verbal as well as writtenpost-procedure instructions prior to the release from the department. Thetissue cores were submitted to surgical pathology in formalin forhistological analysis. IMPRESSION: Technically successful ultrasound-guided core biopsy withtissue marker placement. Amna Glez MD MAMMO ORDERABLES documented in this encounter Visit Diagnoses Diagnosis Abnormal mammogram Abnormal mammogram, unspecified documented in this encounter
--- OUTSIDE RECORDS SUMMARY | 2024-07-22 10:15 | XMS_ITS | Encounter Summary ---
Author Organization [facility] Address [address] [place] [address] Care Team Providers Care Spent Grain Dryer Name Role Phone Unavailable Primary Care Provider Unavailabl e Reason for Visit * Outpatient Services (Routine) - Closed Specialty Diagnoses / Procedures Referred By Contac t Referred To Contact Diagnoses Abnormal mammogram Procedures MAMMO DIGITAL DIAG UNI RIGHT Amna Glez MD [address] [place] [address] Referral ID Status Reason Start Date Expiration Date Visits Re quested Visits Authorized [id number] Closed 09/08/2010 03/07/2011 1 1 Encounter Details Date Type Department Care Team (Latest Contact Info) Description 09/08/2010 2:22 PM BUSINESS IMPROVEMENT MANAGER - 09/08/2010 11:59 PM [facility] Hospital Encounter [facility] Osmani [place] [address] [place] [address] Amna Glez MD [address] [place] [address] Discharge Disposition: Home or Self Care [...] Description 10/09/2024 1:30 PM CDT Appointment [facility] [place] Catal[place] [address] [place] [address] Ariella Montaño MD [address] [place] [address] documented as of this encounter Procedures Procedure Name Priority Date/Time Associated Diagnosis Comments MAMMO DIAGNOSTIC UNI RIGHT W OR WO CAD Routine 09/08/2010 3:07 PM BUSINESS IMPROVEMENT MANAGER Abnormal mammogram documented in this encounter Results * MAMMO DIGITAL DIAG UNI RIGHT (09/08/2010 3:07 PM BUSINESS IMPROVEMENT MANAGER) Anatomical Region Laterality Modality Breast Right Mammography Impressions 09/09/2010 4:41 PM BUSINESS IMPROVEMENT MANAGER : Technically successful ultrasound-guided core biopsy with tissue marker placement. Narrative 09/09/2010 4:41 PM BUSINESS IMPROVEMENT MANAGER ULTRASOUND-GUIDED CORE BIOPSY OF THE RIGHT BREAST, [...]
--- OUTSIDE RECORDS SUMMARY | 2024-07-22 10:15 | XMS_ITS | Encounter Summary ---
Author Organization [facility] Address [address] [place] [address] Care Team Providers Care Clinical Research Director Name Role Phone Jessy Desai MD Primary Care [facility] Encounter Details Date Type Department Care Team ([facility] Contact Info) Description 09/06/2020 Immunization [facility] [address] [place] [address] Maude Hannah, PHARMACIST Social History Tobacco Use Types Packs/Day Years [...] COVID-19? No / Unsure 09/06/2020 10:03 AM TOURIST AGENT documented as of this encounter Plan of Treatment Upcoming Encounters Date Type Department Care Team ([facility] Contact Info) Description 10/09/2024 1:30 PM CDT Appointment [facility] Osmani Catalan [address] [place] [address] Ariella Montaño MD [address] [place] [address] documented as of this encounter Visit Diagnoses Not on filedocumented in this encounter Care Teams Clinical Research Director Relationship Specialty Start Date End Date Jessy Desai MD [address] [place] [address] PCP - General Family Practice 06/09/18 08/21/21 documented as of this encounter
--- OUTSIDE RECORDS SUMMARY | 2024-07-22 10:15 | XMS_ITS | Encounter Summary ---
Author Organization [facility] Address [address] [place] [address] Care Team Providers Care Digital Content Coordinator Name Role Phone Unavailable Primary Care Provider Unavailabl e Reason for Referral * Outpatient Services (Routine) - Closed Specialty Diagnoses / Procedures Referred By Ulises t Referred To Contact Diagnoses Diffuse cystic mastopathy, unspecified laterality Procedures MAMMO DIG SCREEN BILAT W 3D Amna Turner MD [address] [place] [address] Referral ID Status Reason Start Date Expiration Date Visits Re quested Visits Authorized [id number] Closed 06/07/2015 07/07/2016 1 1 TRACER Reason for Visit * Outpatient Services (Routine) - Closed Specialty Diagnoses / Procedures Referred By Contac t Referred To Contact Diagnoses Diffuse cystic mastopathy, unspecified laterality Procedures MAMMO DIG SCREEN BILAT W 3D Amna Turner MD [address] [facility] [place] [address] Referral ID Status Reason Start Date Expiration Date Visits Re quested Visits Authorized [id number] Closed 06/07/2015 07/07/2016 1 1 Encounter Details Date Type Department Care Team (Latest Contact Info) Description 06/08/2016 11:40 AM ART TRACER - 06/08/2016 11:59 PM ART TRACER Hospital Encounter [facility] [place] [address] [place] [address] Amna Glez MD [address] [facility] [place] [address] Discharge Disposition: Home or Self [...] on file documented as of this encounter Medications at Time of Discharge Medication Sig Dispensed Refills Start Date End Date estradiol (ESTRACE) 1 mg tablet Take 1 mg by mouth daily. documented as of this encounter Plan of Treatment Upcoming Encounters Date Type Department Care Team (Late st Contact Info) Description 10/09/2024 1:[address] [facility] [address] [place] [address] Ariella Montaño MD [address] [place] [address] documented as of this encounter Procedures Procedure Name Priority Date/Time Associated Diagnosis Comments MAMMO 3D ADÁN SCREEN BILAT W OR WO CAD Routine 06/08/2016 12:37 PM ART TRACER Diffuse cystic mastopathy, unspecified laterality documented in this encounter Results * MAMMO DIG SCREEN BILAT W 3D ADÁN (06/08/2016 12:37 PM ART TRACER) Anatomical Region Laterality Modality Breast Bilateral Mammography 06/08/2016 12:3 7 PM ART TRACER Narrative 06/09/2016 7:59 AM ART TRACER BILATERAL DIGITAL SCREENING MAMMOGRAM WITH TOMOSYNTHESIS AND [...] RECOMMENDATIONS: Recommend continued annual mammography. Dictated at [facility] Procedure Note Pool Sosa MD - 06/09/2016 [...] RECOMMENDATIONS: Recommend continued annual mammography. Dictated at [facility] Amna Glez MD MAMMO ORDERABLES documented in this encounter Visit Diagnoses Diagnosis Diffuse cystic mastopathy, unspecified laterality documented in this encounter
--- OUTSIDE RECORDS SUMMARY | 2024-07-22 10:15 | XMS_ITS | Encounter Summary ---
Author Organization [employer] Address [address] [place] [address] Care Team Providers Care Primer Press Operator Name Role Phone Jessy Desai MD [facility] Reason for Referral * Radiology Services (Routine) - Closed Specialty Diagnoses / Procedures Referred By Contac t Referred To Contact Radiology Diagnoses Breast cancer screening by mammogram Procedures MAMMO SCRN BILAT 3D ADÁN W OR WO CAD MAMMO SCREEN BILAT W OR WO CAD CHG SCREENING MAMMOGRAPHY BI 2-VIEW BREAST INC CAD CHG SCREENING DIGITAL BREAST TOMOSYNTHESIS BI Mercedes Coffey MD [address] [address] [facility] [address] [place] [address] Referral ID Status Reason Start Date Expiration Date V isits Requested Visits Authorized [id number] Closed ST[facility] CTS 07/05/2020 08/05/2021 1 1 X NETWORK SYSTEMS ADMINISTRATOR Reason for Visit * Radiology Services (Routine) - Closed Specialty Diagnoses / Procedures Referred By Contac t Referred To Contact Radiology Diagnoses Breast cancer screening by mammogram Procedures MAMMO SCRN BILAT 3D ADÁN W OR WO CAD MAMMO SCREEN BILAT W OR WO CAD CHG SCREENING MAMMOGRAPHY BI 2-VIEW BREAST INC CAD CHG SCREENING DIGITAL BREAST TOMOSYNTHESIS BI Mercedes Coffey MD [address] [facility] [address] [place] [address] [facility] [address] [place] [address] Referral ID Status Reason Start Date Expiration Date V isits Requested Visits Authorized [id number] Closed STL CTS 07/05/2020 08/05/2021 1 1 Encounter Details Date Type Department Care Team (Latest Contact Info) Description 09/06/2020 10:08 AM LINUX NETWORK SYSTEMS ADMINISTRATOR - 09/06/2020 11:59 PM LINUX NETWORK SYSTEMS ADMINISTRATOR Hospital Encounter [facility] Osmaniendy Catalan [address] [place] [address] Mercedes Coffey MD [address] [place] [address] [place] [address] Discharge Disposition: Home or Self Care Social [...] COVID-19? No / Unsure 09/06/2020 10:03 AM LINUX NETWORK SYSTEMS ADMINISTRATOR documented as of this encounter Medications at [...] PM CDT Appointment [facility] Osmani Catalan [address] [place] [address] Ariella Montaño MD [address] [place] [phone] documented as of this encounter Procedures Procedure Name Priority Date/Time Associated Diagnosis Comments MAMMO 3D ADÁN SCREEN BILAT W OR WO CAD Routine 09/06/2020 10:46 AM LINUX NETWORK SYSTEMS ADMINISTRATOR Breast cancer screening by mammogram documented in this encounter Results * MAMMO SCRN BILAT 3D ADÁN W OR WO CAD (09/06/2020 10:46 AM LINUX NETWORK SYSTEMS ADMINISTRATOR) Anatomical Region Laterality Modality Breast Bilateral Mammography 09/06/2020 10:4 6 AM LINUX NETWORK SYSTEMS ADMINISTRATOR Impressions 09/06/2020 4:10 PM LINUX NETWORK SYSTEMS ADMINISTRATOR IMPRESSION: No mammographic evidence of malignancy. OVERALL FINAL ASSESSMENT: BI-RADS Category 2: Benign finding(s). RECOMMENDATION: Bilateral screening mammogram in one year. DICTATION LOCATION: ??[facility]illie Catalan Narrative 09/06/2020 4:10 PM LINUX NETWORK SYSTEMS ADMINISTRATOR BILATERAL SCREENING DIGITAL MAMMOGRAM WITH 3D TOMOSYNTHESIS AND CAD DATE: 09/06/2020 10:46 AM COMPARISON: Multiple prior mammograms, dating back to 06/04/2014 and most recently 06/30/2019. HISTORY: Screening mammogram. History of benign right breast biopsy and left breast excisional biopsy. TECHNIQUE: Images were performed using 3D tomosynthesis images with reconstructed/synthetic 2D images and CAD analysis. BREAST COMPOSITION: The breasts are heterogeneously dense, which may obscure small masses. FINDINGS: Postoperative appearance of left breast excisional biopsy is unchanged. Marker from prior benign biopsy is seen in the right breast. There is no suspicious mass, clustered microcalcification, or architectural distortion in either breast on 2D or 3D images. There has been no change in the mammographic appearance compared with the prior study. Procedure Note Wood Moralez MD - 09/06/2020 BILATERAL SCREENING DIGITAL MAMMOGRAM WITH 3D TOMOSYNTHESIS AND CAD DATE: 09/06/2020 10:46 AM COMPARISON: Multiple prior mammograms, dating back to 06/04/2014 and most recently 06/30/2019. HISTORY: Screening mammogram. History of benign right breast biopsy and left breast excisional biopsy. TECHNIQUE: Images were performed using 3D tomosynthesis images with reconstructed/synthetic 2D images and CAD analysis. BREAST COMPOSITION: The breasts are heterogeneously dense, which may obscure small masses. FINDINGS: Postoperative appearance of left breast excisional biopsy is unchanged. Marker from prior benign biopsy is seen in the right breast. There is no suspicious mass, clustered microcalcification, or architectural distortion in either breast on 2D or 3D images. There has been no change in the mammographic appearance compared with the prior study. IMPRESSION: No mammographic evidence of malignancy. OVERALL FINAL ASSESSMENT: BI-RADS Category 2: Benign finding(s). RECOMMENDATION: Bilateral screening mammogram in one year. DICTATION LOCATION: [facility] Mercedes Coffey MD MAMMO ORDERABLES documented in this encounter Visit Diagnoses Diagnosis Breast cancer screening by mammogram documented in this encounter Care Teams Primer Press Operator Relationship Specialty Start Date End Date Jessy Desai MD [address] [place] [address] PCP - General Family Practice 06/09/18 08/21/21 documented as of this encounter
--- OUTSIDE RECORDS SUMMARY | 2024-07-22 10:15 | XMS_ITS | Encounter Summary ---
Author Organization [facility] Address [address] [place] [address] Care Team Providers Care Building Insulation Installer Name Role Phone Ariella Montaño MD Primary Care Provider [phone] Encounter Details Date Type Department Care Team (Late st Contact Info) Description 10/12/2023 External Device Data STL ABSTRACTION Provider, Abstract [...] Description 10/09/2024 1:30 PM CDT Appointment [facility] Osmani Catalan [address] [place] [address] Ariella Montaño MD [address] [place] [address] documented as of this encounter Visit Diagnoses Not on filedocumented in this encounter Care Teams Building Insulation Installer Relationship Specialty Start Date End Date Ariella Montaño MD [address] [place] [address] PCP - General Family Practice 08/22/21 documented as of this encounter
--- OUTSIDE RECORDS SUMMARY | 2024-07-22 10:15 | XMS_ITS | Encounter Summary ---
Author Organization [facility] Address [address] [place] [address] Care Team Providers Care Receiving Lead Name Role Phone Ariella Montaño MD Primary Care Provider [phone] Encounter Details Date Type Department Care Team [...] Info) Description 10/09/2024 1:30 PM CDT Appointment [facility] Osmani Catalan [address] [place] [address] Ariella Montaño MD [address] [place] [address] documented as of this encounter Visit Diagnoses Not on filedocumented in this encounter Care Teams Receiving Lead Relationship Specialty Start Date End Date Ariella Montaño MD [address] [place] [address] PCP - General Family Practice 08/22/21 documented as of this encounter
--- OUTSIDE RECORDS SUMMARY | 2024-07-22 10:15 | XMS_ITS | Encounter Summary ---
Author Organization [facility] Address [address] [place] [address] Care Team Providers Care Soaking Pit Operator Name Role Phone Ariella Montaño MD Primary Care Provider [phone] Encounter Details Date Type Department Care Team (Late st Contact Info) Description 08/28/2023 External Device Data STL ABSTRACTION Provider, Abstract [...] Appointment [facility] Osmani Catalan [address] [place] [address] Ariella Montaño MD [address] [place] [address] documented as of this encounter Visit Diagnoses Not on filedocumented in this encounter Care Teams Soaking Pit Operator Relationship Specialty Start Date End Date Ariella Montaño MD [address] [place] [address] PCP - General Family Practice 08/22/21 documented as of this encounter
--- OUTSIDE RECORDS SUMMARY | 2024-07-22 10:15 | XMS_ITS | Encounter Summary ---
Author Organization [facility] Address [address] [place] [address] Care Team Providers Care Laser Printing Operator Name Role Phone Jessy Desai MD Primary Care [facility] Reason for Referral * Radiology Services (Routine) - Closed Specialty Diagnoses / Procedures Referred By Contac t Referred To Contact Radiology Diagnoses Visit for screening mammogram Procedures MAMMO SCRN BILAT 3D ADÁN W OR Mercedes Dc MD [address] [address] Referral ID Status Reason Start Date Expiration Date V isits Requested Visits Authorized [id number] Closed ST CTS 06/09/2018 07/10/2019 1 1 WORKER Reason for Visit * Radiology Services (Routine) - Closed Specialty Diagnoses / Procedures Referred By Contac t Referred To Contact Radiology Diagnoses Visit for screening mammogram Procedures MAMMO SCRN BILAT 3D ADÁN W OR Mercedes Dc MD [address] [facility] [address] [address] Referral ID Status Reason Start Date Expiration Date V isits Requested Visits Authorized [id number] Closed STL CTS 06/09/2018 07/10/2019 1 1 Encounter Details Date Type Department Care Team (Latest Contact Info) Description 06/16/2018 11:04 AM HEAD WORKER - 06/16/2018 11:59 PM HEAD WORKER Hospital Encounter [facility] Osmani Catalan [address] [place] [address] Mercedes Coffey MD [address] [phone] Discharge Disposition: Home or Self Care Social [...] Info) Description 10/09/2024 1:30 PM CDT Appointment [facility] Osmani Catalan [address] [place] [address] Ariella Montaño MD [address] [place] [address] documented as of this encounter Procedures Procedure Name Priority Date/Time Associated Diagnosis Comments MAMMO 3D ADÁN SCREEN BILAT W OR WO CAD Routine 06/16/2018 11:16 AM HEAD WORKER Visit for screening mammogram documented in this encounter Results * MAMMO SCRN BILAT 3D ADÁN W OR WO CAD (06/16/2018 11:16 AM HEAD WORKER) Anatomical Region Laterality Modality Breast Bilateral Mammography 06/16/2018 11:1 6 AM HEAD WORKER Impressions 06/16/2018 1:21 PM HEAD WORKER IMPRESSION: 1. No concerning developing abnormality identified. 2. Changes consistent with a benign process as above. OVERALL ASSESSMENT: BI-RADS Category 2 - Benign findings RECOMMENDATIONS: 1. Recommend annual mammography. Narrative 06/16/2018 1:21 PM HEAD WORKER BILATERAL SCREENING DIGITAL MAMMOGRAM WITH TOMOSYNTHESIS AND CAD DATE: 06/16/2018 11:16 AM DICTATION LOCATION: [facility] (Location #3) HISTORY: Routine yearly screening mammogram. TECHNIQUE: Standard images of both breasts were obtained on a digital system. 2D and 3D acquisitions were obtained of both breasts. CAD was utilized. COMPARISON: Comparison made to studies dating back to 05/16/2012. BREAST COMPOSITION: Scattered fibroglandular densities FINDINGS: No concerning dominant masses, suspicious calcifications, parenchymal asymmetry or areas of architectural distortion are identified in either breast. Postoperative changes of an excisional biopsy within the left breast. Procedure Note Pool Sosa MD - 06/16/2018 BILATERAL SCREENING DIGITAL MAMMOGRAM WITH TOMOSYNTHESIS AND CAD DATE: 06/16/2018 11:16 AM DICTATION LOCATION: [facility] (Location #3) HISTORY: Routine yearly screening mammogram. TECHNIQUE: Standard images of both breasts were obtained on a digital system. 2D and 3D acquisitions were obtained of both breasts. CAD was utilized. COMPARISON: Comparison made to studies dating back to 05/16/2012. BREAST COMPOSITION: Scattered fibroglandular densities FINDINGS: No concerning dominant masses, suspicious calcifications, parenchymal asymmetry or areas of architectural distortion are identified in either breast. Postoperative changes of an excisional biopsy within the left breast. IMPRESSION: 1. No concerning developing abnormality identified. 2. Changes consistent with a benign process as above. OVERALL ASSESSMENT: BI-RADS Category 2 - Benign findings RECOMMENDATIONS: 1. Recommend annual mammography. Mercedes Coffey MD MAMMO ORDERABLES documented in this encounter Visit Diagnoses Diagnosis Visit for screening mammogram Other screening mammogram documented in this encounter Care Teams Laser Printing Operator Relationship Specialty Start Date End Date Jessy Desai MD [address] [place] [address] PCP - General Family Practice 06/09/18 08/21/21 documented as of this encounter
--- OUTSIDE RECORDS SUMMARY | 2024-07-22 10:15 | XMS_ITS | Encounter Summary ---
Author Organization [facility] Address [address] [place] [address] Care Team Providers Care Maturity Checker Name Role Phone Unavailable Primary Care Provider Unavailabl e Reason for Referral * Outpatient Services (Routine) - Closed Specialty Diagnoses / Procedures Referred By Contac t Referred To Contact Diagnoses Abnormal mammogram . Procedures MAMMO BREAST US LEFT LTD Amna Glez MD [address] [place] [address] Referral ID Status Reason Start Date Expiration Date Visits Re quested Visits Authorized [id number] Closed 06/10/2015 07/10/2016 1 1 AGENT Encounter Details Date Type Department Care Team (Late st Contact Info) Description 06/10/2015 Orders Only [facility] [address] [place] [address] Amna Glez MD [address] [place] [address] Abnormal mammogram (Primary Dx) Social [...] Info) Description 10/09/2024 1:30 PM CDT Appointment [facility] Osmani Catalan [address] [place] [address] Ariella Montaño MD [address] [place] [address] documented as of this encounter Results * MAMMO BREAST US LEFT LTD (06/12/2015 11:31 AM BAIL AGENT) Anatomical Region Laterality Modality Left Ultrasound 06/12/2015 11:1 7 AM BAIL AGENT Narrative 06/17/2015 8:05 AM BAIL AGENT LEFT BREAST ULTRASOUND LIMITED ??06/12/15 HISTORY: Abnormal [...]
--- OUTSIDE RECORDS SUMMARY | 2024-07-22 10:15 | XMS_ITS | Encounter Summary ---
Author Organization [facility] Address [address] [place] [address] Care Team Providers Care Synthetic Staple Extruder Name Role Phone Ariella Montaño MD Primary Care Provider [phone] Reason for Referral * Radiology Services (Routine) - Closed Specialty Diagnoses / Procedures Referred By Contac t Referred To Contact Radiology Diagnoses Visit for screening mammogram Procedures MAMMO 3D ADÁN SCREEN BILAT W OR WO CAD CHG SCREENING MAMMOGRAPHY BI 2-VIEW BREAST INC CAD CHG SCREENING DIGITAL BREAST TOMOSYNTHESIS BI Ariella Montaño MD [address] [place] [address] [facility] [facility] [place] [address] Referral ID Status Reason Start Date Expiration Date Visits Re quested Visits Authorized [id number] Closed 09/27/2023 10/27/2024 1 1 RVISOR BOATBUILDERS WOOD Reason for Visit * Radiology Services (Routine) - Closed Specialty Diagnoses / Procedures Referred By Contac t Referred To Contact Radiology Diagnoses Visit for screening mammogram Procedures MAMMO 3D ADÁN SCREEN BILAT W OR WO CAD CHG SCREENING MAMMOGRAPHY BI 2-VIEW BREAST INC CAD CHG SCREENING DIGITAL BREAST TOMOSYNTHESIS BI Ariella Montaño MD [address] [place] [address] [facility] [facility] [address] [place] [address] Referral ID Status Reason Start Date Expiration Date Visits Re quested Visits Authorized [id number] Closed 09/27/2023 10/27/2024 1 1 Encounter Details Date Type Department Care Team (Latest Contact Info) Description 10/08/2023 10:48 AM SUPERVISOR BOATBUILDERS WOOD - 10/08/2023 11:59 PM SUPERVISOR BOATBUILDERS WOOD Hospital Encounter [facility] Osmani Catalan [address] [place] [address] Ariella Montaño MD [address] [place] [address] Discharge Disposition: Home or Self [...] Start Date End Date flu vaccine quadrivalent 2019-21, 6 mo+,,PF, (Flulaval Quad [id number], PF,) 60 mcg (15 mcg x 4)/0.5 mL Syringe syringe TO BE ADMINISTERED BY A PHARMACIST 0.5 mL 09/06/2020 estradiol (ESTRACE) 1 mg tablet Take 1 mg by mouth daily. documented as of this encounter Plan of Treatment Upcoming Encounters Date Type Department Care Team (Late st Contact Info) Description 10/09/2024 1:30 PM CDT Appointment [facility] Osmani Catalan [address] [place] [address] Ariella Montaño MD [address] [place] [address] documented as of this encounter Procedures Procedure Name Priority Date/Time Associated Diagnosis Comments MAMMO 3D ADÁN SCREEN BILAT W OR WO CAD Routine 10/08/2023 11:12 AM SUPERVISOR BOATBUILDERS WOOD Visit for screening mammogram documented in this encounter Results * MAMMO 3D ADÁN SCREEN BILAT W OR WO CAD (10/08/2023 11:12 AM SUPERVISOR BOATBUILDERS WOOD) Anatomical Region Laterality Modality Breast Bilateral Mammography 10/08/2023 11:1 2 AM SUPERVISOR BOATBUILDERS WOOD Impressions 10/08/2023 1:43 PM SUPERVISOR BOATBUILD[employer] WOOD IMPRESSION: No suspicious findings to suggest malignancy in either breast. Annual mammography is recommended. ?? OVERALL FINAL ASSESSMENT: ??BI-RADS CATEGORY 2: Benign findings Narrative 10/08/2023 1:43 PM SUPERVISOR BOATBUILDERS WOOD BILATERAL SCREENING DIGITAL MAMMOGRAM WITH 3D TOMOSYNTHESIS AND CAD DATE: 10/08/2023 11:12 AM HISTORY: Routine screening. DICTATION LOCATION: ??[facility] TECHNIQUE: Full-field digital craniocaudal and mediolateral oblique [...] AM HISTORY: Routine screening. DICTATION LOCATION: [facility] TECHNIQUE: Full-field digital craniocaudal and mediolateral oblique [...] Benign findings Ariella Montaño MD MAMMO ORDERABLES documented in this encounter Visit Diagnoses Diagnosis Visit for screening mammogram Other screening mammogram documented in this encounter Care Teams Synthetic Staple Extruder Relationship Specialty Start Date End Date Ariella Montaño MD [address] [place] [address] PCP - General Family Practice 08/22/21 documented as of this encounter
--- OUTSIDE RECORDS SUMMARY | 2024-07-22 10:15 | XMS_ITS | Encounter Summary ---
Author Organization [facility] Address [address] [place] [address] Care Team Providers Care Shoe Folder Name Role Phone Ariella Montaño MD Primary Care Provider [phone] Encounter Details Date Type Department Care Team (Late st Contact Info) Description 01/04/2024 External Device Data STL ABSTRACTION Provider, Abstract [...] Info) Description 10/09/2024 1:30 PM CDT Appointment [facility] Osmani Catalan [address] [place] [address] Ariella Montaño MD [address] [place] [address] documented as of this encounter Visit Diagnoses Not on filedocumented in this encounter Care Teams Shoe Folder Relationship Specialty Start Date End Date Ariella Montaño MD [address] [place] [address] PCP - General Family Practice 08/22/21 documented as of this encounter
--- OUTSIDE RECORDS SUMMARY | 2024-07-22 10:15 | XMS_ITS | Encounter Summary ---
Author Organization [facility] Address [address] [place] [address] Care Team Providers Care Foiling Machine Operator Name Role Phone Unavailable Primary Care Provider Unavailabl e Reason for Referral * Outpatient Services (Routine) - Closed Specialty Diagnoses / Procedures Referred By Ulises t Referred To Contact Diagnoses Abnormal mammogram Procedures MAMMO BREAST US RT Amna Glez MD [address] [place] [address] Referral ID Status Reason Start Date Expiration Date Visits Re quested Visits Authorized [id number] Closed 09/08/2010 03/07/2011 1 1 FRUIT FARMING SUPERVISOR Reason for Visit * Reason Comments Abnormal Mammogram right breast Encounter Details Date Type Department Care Team (Late st Contact Info) Description 09/08/2010 11:15 AM VINE FRUIT FARMING SUPERVISOR Office Visit [facility] [address] [facility] [address] [place] [address] Amna Glez MD [address] [place] [address] Abnormal mammogram (Primary Dx) Social [...] Sign Reading Time Taken Comments Blood Pressure 117/73 09/08/2010 12:13 PM VINE FRUIT FARMING SUPERVISOR Pulse - - Temperature - - Respiratory Rate - - Oxygen Saturation - - Inhaled Oxygen Concentration - - Weight 71.2 kg (157 lb) 09/08/2010 12:13 PM VINE FRUIT FARMING SUPERVISOR Height 157.5 cm (5' 2 ) 09/08/2010 12:13 PM VINE FRUIT FARMING SUPERVISOR Body Mass Index 28.72 09/08/2010 12:13 PM VINE FRUIT FARMING SUPERVISOR documented in this encounter Progress Notes * Amna Glez MD - 09/08/2010 12:18 PM CST PATIENT: BRADFORD PAGAN : 1965 DATE: 09/08/2010 BRADFORD PAGAN is a 45 y.o. female. She is referred by Dr baumann because of recent screening mammography that showed densities in both breasts which on subsequent ultrasound proved to be a complexcystic structure in the right breast for which biopsy was recommended. 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 She is . She rarely drinks. She does not smoke. 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 PSH: No past surgical history on file. ALLERGY: Allergies Allergen Reactions ??? Codeine Nausea and Vomiting MEDS: No current outpatient prescriptions on file. FHX: No family history on file. SOC: History Social History ??? Marital Status: Spouse Name: N/A Number of Children: N/A ??? Years of Education: N/A Occupational History ??? Not on file. Social History Main Topics ??? Smoking status: Not on file ??? Smokeless tobacco: Not on file ??? Alcohol Use: Not on file ??? Drug Use: Not on file ??? Sexually Active: Not on file Other Topics Concern ??? Not on file Social History Narrative ??? No narrative on file ROS: unremarkable Constitutional: Negative for fever, weight loss and malaise/fatigue. Respiratory: Negative for cough. Cardiovascular: Negative for chest pain and leg swelling. Gastrointestinal:. Negative for abdominal pain. Genitourinary: Negative for dysuria. Musculoskeletal: Negative for myalgias and joint pain. Skin: Negative for rash. Neurological: Negative for dizziness and headaches. Psychiatric/Behavioral: Negative for depression Endocrine: Negative for diabetes, negative for thyroid dysfunction Hematologic: Negative for anemia, bleeding disorders, HIV/AIDS BP 117/73 Ht 5' 2 (1.575 m) Wt 157 lb (71.215 kg) PHYSICAL EXAM: Well-developed, well-nourished, pleasant woman. Neck [...] 01, 2010 at the imaging Center of [facility] in [place], [place]. Bilateral asymmetric densities, which persists on spot compression views. Bilateral breast ultrasound: September 01, 2010. No abnormalities are seen in the left breast. In theright breast at 10:00. There is a simple cyst. In the right breast at 9:00. There is a complex cystic structure a for which a biopsy has been recommended IMPRESSION /PLAN: Abnormal bilateral mammogram Ultrasound on the left shows no subsequent abnormalities. Ultrasound on the right shows a complex cystic structure and a biopsy has been recommended The mammogram and ultrasound were reviewed by myself and by Dr. Ruvalcaba We agree with the outside radiology findings The patient will undergo a repeat ultrasound of the right breast today with aspiration of the complex cystic structure If we are unable to aspirate she would proceed with a biopsy Amna Glez MD.FACS. cc: Yulissa Tripp [address] [facility] [address] [place] [address] FRUIT FARMING SUPERVISOR documented in this encounter Plan of Treatment Upcoming Encounters Date Type Department Care Team (Late st Contact Info) Description 10/09/2024 1:30 PM CDT Appointment [facility] [address] [place] [address] Ariella Montaño MD [address] [place] [address] documented as of this encounter Results * MAMMO BREAST US RT (09/08/2010 3:15 PM VINE FRUIT FARMING SUPERVISOR) Anatomical Region Laterality Modality Breast Right Ultrasound Impressions 09/09/2010 4:41 PM VINE FRUIT FARMING SUPERVISOR : Technically successful ultrasound-guided core biopsy with tissue marker placement. Narrative 09/09/2010 4:41 PM VINE FRUIT FARMING SUPERVISOR ULTRASOUND-GUIDED CORE BIOPSY OF THE RIGHT BREAST, [...]
--- OUTSIDE RECORDS SUMMARY | 2024-07-22 10:15 | XMS_ITS | Encounter Summary ---
Author Organization [facility] Address [address] [place] [address] Care Team Providers Care Clinical Instructor Name Role Phone Ariella Montaño MD Primary Care Provider [phone] Encounter Details Date Type Department Care Team (Late st Contact Info) Description 08/27/2023 External Device Data STL ABSTRACTION Provider, Abstract [...] [facility] [address] [place] [address] Ariella Montaño MD [address] [place] [address] documented as of this encounter Visit Diagnoses Not on filedocumented in this encounter Care Teams Clinical Instructor Relationship Specialty Start Date End Date Ariella Montaño MD [address] [place] [address] PCP - General Family Practice 08/22/21 documented as of this encounter
--- OUTSIDE RECORDS SUMMARY | 2024-07-22 10:15 | XMS_ITS | Encounter Summary ---
Author Organization [facility] Address [address] [facility] Attn: Epic Prelude ADT [place] [address] Care Team Providers Care Title Inspector Name Role Phone Ariella Montaño MD Primary Care Provider [phone] Encounter Details Date Type Department Care Team (Latest Contact Info) Description 09/07/2022 Travel Social History Tobacco Use Types Packs/Day [...] Coronavirus/COVID-19? No / Unsure 09/07/2022 1:43 PM VEGETABLE COOK documented as of this encounter Plan of Treatment Upcoming Encounters Date Type Department Care Team (Late st Contact Info) Description 10/09/2024 1:30 PM CDT Appointment [facility] [address] [place] [address] Ariella Montaño MD [address] [place] [address] documented as of this encounter Visit Diagnoses Not on filedocumented in this encounter Care Teams Title Inspector Relationship Specialty Start Date End Date Ariella Montaño MD [address] [place] [address] PCP - General Family Practice 08/22/21 documented as of this encounter
--- OUTSIDE RECORDS SUMMARY | 2024-07-22 10:15 | XMS_ITS | Encounter Summary ---
Author Organization [facility] Address [address] [place] [address] Care Team Providers Care Metal Riveting Machine Operator Name Role Phone Jessy Desai MD Primary Care [facility] Reason for Referral * Radiology Services (Routine) - Closed Specialty Diagnoses / Procedures Referred By Contac t Referred To Contact Radiology Diagnoses Breast cancer screening by mammogram Procedures MAMMO SCRN BILAT 3D ADÁN W OR WO CAD CHG SCREENING MAMMOGRAPHY BI 2-VIEW BREAST INC CAD CHG SCREENING DIGITAL BREAST TOMOSYNTHESIS BI Mercedes Coffey MD [address] [facility] [address] [address] Referral ID Status Reason Start Date Expiration Date V isits Requested Visits Authorized [id number] Closed ST[facility] CTS 06/07/2019 07/07/2020 1 1 EY INTERVIEWER Reason for Visit * Radiology Services (Routine) - Closed Specialty Diagnoses / Procedures Referred By Contac t Referred To Contact Radiology Diagnoses Breast cancer screening by mammogram Procedures MAMMO SCRN BILAT 3D ADÁN W OR WO CAD CHG SCREENING MAMMOGRAPHY BI 2-VIEW BREAST INC CAD CHG SCREENING DIGITAL BREAST TOMOSYNTHESIS Mercedes Mendoza MD [address] [address] Referral ID Status Reason Start Date Expiration Date V isits Requested Visits Authorized [id number] Closed ST[facility] CTS 06/07/2019 07/07/2020 1 1 Encounter Details Date Type Department Care Team (Latest Contact Info) Description 06/30/2019 9:51 AM SURVEY INTERVIEWER - 06/30/2019 11:59 PM SURVEY INTERVIEWER Hospital Encounter [facility] [place] [address] [place] [phone] Mercedes Coffey MD [address] [phone] Discharge Disposition: Home or Self Care Social [...] [facility] [address] [place] [address] [place] [address] Ariella Montaño MD [address] [place] [address] documented as of this encounter Procedures Procedure Name Priority Date/Time Associated Diagnosis Comments MAMMO 3D ADÁN SCREEN BILAT W OR WO CAD Routine 06/30/2019 10:05 AM SURVEY INTERVIEWER Breast cancer screening by mammogram documented in this encounter Results * MAMMO SCRN BILAT 3D ADÁN W OR WO CAD (06/30/2019 10:05 AM SURVEY INTERVIEWER) Anatomical Region Laterality Modality Breast Bilateral Mammography 06/30/2019 10:0 5 AM SURVEY INTERVIEWER Impressions 06/30/2019 11:11 AM SURVEY INTERVIEWER IMPRESSION: No suspicious findings to suggest malignancy in either breast. Annual mammography is recommended. OVERALL FINAL ASSESSMENT: ??BI-RADS CATEGORY 2: Benign findings Narrative 06/30/2019 11:11 AM SURVEY INTERVIEWER BILATERAL FULL-FIELD DIGITAL SCREENING MAMMOGRAM WITH CAD WITH 3D TOMOSYNTHESIS DATE: 06/30/2019 10:05 AM HISTORY: Routine screening. DICTATION LOCATION: ??[place] TECHNIQUE: Full-field digital craniocaudal and mediolateral oblique projections of both breasts were obtained. Low-dose full-field digital breast tomosynthesis examination was performed with 2D and 3D acquisitions. Examination is read in conjunction with computer aided detection. COMPARISON: 06/16/2018 and older. BREAST COMPOSITION: Heterogeneously dense, which limits the sensitivity of mammography. FINDINGS: No suspicious mass, suspicious microcalcifications, or architectural distortion is identified in either breast. Postsurgical changes in the upper central left breast are redemonstrated. Computer aided detection was used in the interpretation of this examination. Procedure Note Guadalupe Sánchez MD - 06/30/2019 BILATERAL FULL-FIELD DIGITAL SCREENING MAMMOGRAM WITH CAD WITH 3D TOMOSYNTHESIS DATE: 06/30/2019 10:05 AM HISTORY: Routine screening. DICTATION LOCATION: Lillie [place] TECHNIQUE: Full-field digital craniocaudal and mediolateral oblique projections of both breasts were obtained. Low-dose full-field digital breast tomosynthesis examination was performed with 2D and 3D acquisitions. Examination is read in conjunction with computer aided detection. COMPARISON: 06/16/2018 and older. BREAST COMPOSITION: Heterogeneously dense, which limits the sensitivity of mammography. FINDINGS: No suspicious mass, suspicious microcalcifications, or architectural distortion is identified in either breast. Postsurgical changes in the upper central left breast are redemonstrated. Computer aided detection was used in the interpretation of this examination. IMPRESSION: No suspicious findings to suggest malignancy in either breast. Annual mammography is recommended. OVERALL FINAL ASSESSMENT: BI-RADS CATEGORY 2: Benign findings Mercedes Coffey MD MAMMO ORDERABLES documented in this encounter Visit Diagnoses Diagnosis Breast cancer screening by mammogram documented in this encounter Care Teams Metal Riveting Machine Operator Relationship Specialty Start Date End Date Jessy Desai MD [address] [place] [address] PCP - General Family Practice 06/09/18 08/21/21 documented as of this encounter
--- OUTSIDE RECORDS SUMMARY | 2024-07-22 10:15 | XMS_ITS | Encounter Summary ---
Author Organization [facility] Address [address] [place] [address] Care Team Providers Care Plastic Block Boiler Reliner Name Role Phone Unavailable Primary Care Provider Unavailabl e Reason for Referral * Outpatient Services (Routine) - Closed Specialty Diagnoses / Procedures Referred By Ulises t Referred To Contact Diagnoses Diffuse cystic mastopathy Procedures MAMMO DIGITAL SCREEN Amna Stone MD [address] [facility] [place] [address] Referral ID Status Reason Start Date Expiration Date Visits Re quested Visits Authorized [id number] Closed 05/29/2013 06/29/2014 1 1 OSOFT APPLICATION DEVELOPER Reason for Visit * Outpatient Services (Routine) - Closed Specialty Diagnoses / Procedures Referred By Contac t Referred To Contact Diagnoses Diffuse cystic mastopathy Procedures MAMMO DIGITAL SCREEN Amna Stone MD [address] [facility] [place] [address] Referral ID Status Reason Start Date Expiration Date Visits Re quested Visits Authorized [id number] Closed 05/29/2013 06/29/2014 1 1 Encounter Details Date Type Department Care Team (Latest Contact Info) Description 06/04/2014 1:49 PM MICROSOFT APPLICATION DEVELOPER - 06/04/2014 11:59 PM MICROSOFT APPLICATION DEVELOPER Hospital Encounter [facility] [address] [place] [address] Amna Glez MD [address] [place] [id number] Discharge Disposition: Home or Self Care Social [...] Description 10/09/2024 1:30 PM CDT [facility] [address] [place] [address] Ariella Montaño MD [address] [place] [address] documented as of this encounter Procedures Procedure Name Priority Date/Time Associated Diagnosis Comments MAMMO SCREEN BILAT W OR WO CAD Routine 06/04/2014 2:20 PM MICROSOFT APPLICATION DEVELOPER Diffuse cystic mastopathy documented in this encounter Results * MAMMO DIGITAL SCREEN BILAT (06/04/2014 2:20 PM MICROSOFT APPLICATION DEVELOPER) Anatomical Region Laterality Modality Breast Bilateral Mammography 06/04/2014 2:08 PM MICROSOFT APPLICATION DEVELOPER Narrative 06/05/2014 11:16 AM MICROSOFT APPLICATION DEVELOPER BILATERAL FULL FIELD DIGITAL SCREENING MAMMOGRAM WITH CAD. 06/04/14 HISTORY: Routine Screening. TECHNIQUE: Full field digital screening mammography of both breasts were obtained. COMPARISON: ??May 2013, May 2012, May 2010 BREAST PARENCHYMAL COMPOSITION: Heterogeneously dense, which lowers the sensitivity of mammography. FINDINGS: ??Architectural distortion is identified in the central aspect of the left breast. This is stable. Asymmetric breast tissue is identified in the superior aspect of the right breast. This is also stable. No new dominant masses, areas of asymmetry or suspicious clustered calcifications are identified within either breast. CAD was utilized. OVERALL ASSESSMENT: ??BI-RADS category 1: Negative. RECOMMENDATION: Annual mammography is recommended. [facility] [place] Procedure Note Mamie Cole MD - 11/04/2014 BILATERAL FULL FIELD DIGITAL SCREENING MAMMOGRAM WITH CAD. 06/04/14 HISTORY: Routine Screening. TECHNIQUE: Full field digital screening mammography of both breasts were obtained. COMPARISON: May 2013, May 2012, May 2010 BREAST PARENCHYMAL COMPOSITION: Heterogeneously dense, which lowers the sensitivity of mammography. FINDINGS: Architectural distortion is identified in the central aspect of the left breast. This is stable. Asymmetric breast tissue is identified in the superior aspect of the right breast. This is also stable. No new dominant masses, areas of asymmetry or suspicious clustered calcifications are identified within either breast. CAD was utilized. OVERALL ASSESSMENT: BI-RADS category 1: Negative. RECOMMENDATION: Annual mammography is recommended. [facility] Amna Glez MD MAMMO ORDERABLES documented in this encounter Visit Diagnoses Diagnosis Diffuse cystic mastopathy documented in this encounter
--- OUTSIDE RECORDS SUMMARY | 2024-07-22 10:15 | XMS_ITS | Encounter Summary ---
Author Organization [facility] Address [address] [place] [address] Care Team Providers Care Supervisor Kosher Dietary Service Name Role Phone Unavailable Primary Care Provider Unavailabl e Reason for Referral * Outpatient Services (Routine) - Closed Specialty Diagnoses / Procedures Referred By Contsasha t Referred To Contact Diagnoses Diffuse cystic mastopathy, unspecified laterality Procedures MAMMO DIG SCREEN BILAT W 3D ADÁN Amna Glez MD [address] [place] [address] Referral ID Status Reason Start Date Expiration Date Visits Re quested Visits Authorized [id number] Closed 06/04/2014 07/05/2015 1 1 NING AND ANALYSIS MANAGER Reason for Visit * Reason Comments Follow Up rt breast Encounter Details Date Type Department Care Team (Late st Contact Info) Description 06/04/2014 2:30 PM PLANNING AND ANALYSIS MANAGER Office Visit [facility] [address] [place] [address] Amna Glez MD [address] [place] [address] Diffuse cystic mastopathy, unspecified laterality [...] Sign Reading Time Taken Comments Blood Pressure 119/75 06/04/2014 2:26 PM PLANNING AND ANALYSIS MANAGER Pulse 73 06/04/2014 2:26 PM PLANNING AND ANALYSIS MANAGER Temperature - - Respiratory Rate - - Oxygen Saturation - - Inhaled Oxygen Concentration - - Weight 80.5 kg (177 lb 6.4 oz) 06/04/2014 2:26 P M PLANNING AND ANALYSIS MANAGER Height 157.5 cm (5' 2 ) 06/04/2014 2:26 PM PLANNING AND ANALYSIS MANAGER Body Mass Index 32.45 06/04/2014 2:26 PM PLANNING AND ANALYSIS MANAGER documented in this encounter Progress Notes * Amna Glez MD - 06/04/2014 2:43 PM CST PATIENT: Tari Pagan : 1965 DATE: 06/04/2014 Tari Pagan is a 49 y.o. female. 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 She is . She rarely drinks. She does not smoke. ROS: unremarkable No new breast complaints No past medical history on file. Past Surgical History Procedure Laterality Date ??? Hx breast surgery - other left breast tumor removed ??? Hx hysterectomy 2009 partial ??? 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 Hx gómez and bso ??? Hx core needle breast biopsy Right Allergies Allergen Reactions ??? Codeine Nausea and Vomiting BP 119/75 Pulse 73 Ht 5' 2 (1.575 m) Wt 177 lb 6.4 oz (80.468 kg) BMI 32.44 kg/m2 PHYSICAL EXAM: Well-developed, well-nourished, pleasant woman. Neck - no thyromegaly no cervical adenopathy SCF- no adenopathy Axilla -no adenopathy Breasts - Right breast:normal in appearance, no masses, skin changes or nipple discharge Left breast: normal in appearance, no masses, skin changes or nipple discharge Extremities - Good range of motion of shoulders, no lymphedema present IMAGING: films are reviewed. Mammogram: May 26, 2010 and September 01, 2010 at the imaging Center of [facility] in [place], [place]. Bilateral asymmetric densities, which persists on spot compression views. Bilateral breast ultrasound: September 01, 2010. No abnormalities are seen in the left breast. In theright breast at 10:00. There is a simple cyst. In the right breast at 9:00. There is a complex cystic structure a for which a biopsy has been recommended Right ultrasound-guided core biopsy: 09/08/2010 at [facility]; FA, FCC Mammogram: 05/12/2011 at [facility]; NEM Mammogram: 05/16/2012 at [facility]; nem Mammogram: 05/29/2013 at [facility]; nem Mammogram: 06/04/2014 at [facility]; nem, pending official reading IMPRESSION /PLAN: 49 y.o. woman with stable examination and screening mammogram I have personally reviewed her mammogram today I'll see her back in June 2015 for bilateral mammogram, If the official reading is okay Amna Glez MD.FACS. cc: Yulissa Bunn MD [address] [facility] [address] [place] [address] NING AND ANALYSIS MANAGER documented in this encounter Plan of Treatment Upcoming Encounters Date Type Department Care Team (Late st Contact Info) Description 10/09/2024 1:[address] [facility] [place] [address] [place] [address] Ariella Montaño MD [address] [place] [address] documented as of this encounter Results * MAMMO DIG SCREEN BILAT W 3D ADÁN (06/07/2015 11:57 AM PLANNING AND ANALYSIS MANAGER) Anatomical Region Laterality Modality Breast Bilateral Mammography 06/07/2015 11:5 6 AM PLANNING AND ANALYSIS MANAGER Narrative 06/10/2015 11:06 AM PLANNING AND ANALYSIS MANAGER BILATERAL FULL FIELD DIGITAL SCREENING MAMMOGRAM WITH CAD WITH 3D TOMOSYNTHESIS. 06/07/15 HISTORY: Routine Screening. TECHNIQUE: Full field digital screening mammography of both breasts were obtained. Low Dose full field Digital Breast tomosynthesis examination was performed with 2D and 3D acquisitions. ??Examination is read in conjunction with computer aided detection. COMPARISON: June 2014 and May 2013April 2009 BREAST PARENCHYMAL COMPOSITION: Scattered fibroglandular densities. FINDINGS: A new left breast lump is identified at the 12:00 mid-depth position of the left breast. The patient should return for an ultrasound of this finding. Scattered calcifications are identified bilaterally. Architectural distortion is identified within the left breast, consistent with the patient's prior surgery. No other new dominant masses, areas of asymmetry or suspicious clustered calcifications are identified within either breast. CAD was utilized. Overall assessment: BI-RADS category 0 needs additional imaging evaluation. Recommendation: It is recommended the patient return for left breast ultrasound of the new mass in the left breast Dictated from [facility] [place] Procedure Note Mamie Cole MD - 06/10/2015 BILATERAL FULL FIELD DIGITAL SCREENING MAMMOGRAM WITH CAD WITH 3D TOMOSYNTHESIS. 06/07/15 HISTORY: Routine Screening. TECHNIQUE: Full field digital screening mammography of both breasts were obtained. Low Dose full field Digital Breast tomosynthesis examination was performed with 2D and 3D acquisitions. Examination is read in conjunction with computer aided detection. COMPARISON: June 2014 and May 2013April 2009 BREAST PARENCHYMAL COMPOSITION: Scattered fibroglandular densities. FINDINGS: A new left breast lump is identified at the 12:00 mid-depth position of the left breast. The patient should return for an ultrasound of this finding. Scattered calcifications are identified bilaterally. Architectural distortion is identified within the left breast, consistent with the patient's prior surgery. No other new dominant masses, areas of asymmetry or suspicious clustered calcifications are identified within either breast. CAD was utilized. Overall assessment: BI-RADS category 0 needs additional imaging evaluation. Recommendation: It is recommended the patient return for left breast ultrasound of the new mass in the left breast Dictated from [facility] Amna Glez MD MAMMO ORDERABLES documented in this encounter Visit Diagnoses Diagnosis Diffuse cystic mastopathy, unspecified laterality- Primary Diffuse cystic mastopathy, unspecified laterality documented in this encounter
--- OUTSIDE RECORDS SUMMARY | 2024-07-22 10:15 | XMS_ITS | Encounter Summary ---
Author Organization [facility] Address [address] [place] [address] Care Team Providers Care Resident Care Manager Name Role Phone Ariella Montaño MD Primary Care Provider [phone] Reason for Referral * Radiology Services (Routine) - Closed Specialty Diagnoses / Procedures Referred By Contac t Referred To Contact Radiology Diagnoses Visit for screening mammogram Procedures MAMMO SCRN BILAT 3D ADÁN W OR WO CAD CHG SCREENING MAMMOGRAPHY BI 2-VIEW BREAST INC CAD CHG SCREENING DIGITAL BREAST TOMOSYNTHESIS BI Ariella Montaño MD [address] [place] [address] [facility] [address] [address] [place] [address] Referral ID Status Reason Start Date Expiration Date Visits Re quested Visits Authorized [id number] Closed 08/31/2022 10/01/2023 1 1 ERY BIOLOGIST Encounter Details Date Type Department Care Team (Latest Contact Info) Description 08/31/2022 Transcribe Orders Central Test Scheduling [address] [place] [address] Ariella Montaño MD [address] [place] [address] Visit for screening mammogram (Primary Dx) Social History Tobacco Use [...] CDT Appointment [facility] [place] [address] [place] [phone] Ariella Montaño MD [address] [place] [address] documented as of this encounter Results * MAMMO SCRN BILAT 3D ADÁN W OR WO CAD (09/07/2022 1:55 PM FISHERY BIOLOGIST) Anatomical Region Laterality Modality Breast Bilateral Mammography 09/07/2022 1:56 PM FISHERY BIOLOGIST Impressions 09/07/2022 3:56 PM FISHERY BIOLOGIST IMPRESSION: 1. No concerning developing abnormality identified. OVERALL FINAL ASSESSMENT: ??BI-RADS CATEGORY 2: Benign findings RECOMMENDATIONS: ?? 1. Recommend annual mammography. Narrative 09/07/2022 3:56 PM FISHERY BIOLOGIST BILATERAL SCREENING DIGITAL MAMMOGRAM WITH 3D TOMOSYNTHESIS AND CAD DATE: 09/07/2022 1:55 PM DICTATION LOCATION: [facility] HISTORY: Annual screening mammogram. TECHNIQUE: Standard images [...] DATE: 09/07/2022 1:55 PM [facility]: Annual screening mammogram. TECHNIQUE: Standard images [...] encounter Visit Diagnoses Diagnosis Visit for screening mammogram- Primary Other screening mammogram Visit for screening mammogram Other screening mammogram documented in this encounter Care Teams Resident Care Manager Relationship Specialty Start Date End Date Ariella Montaño MD [address] [place] [address] PCP - General Family Practice 08/22/21 documented as of this encounter
--- OUTSIDE RECORDS SUMMARY | 2024-07-22 10:15 | XMS_ITS | Encounter Summary ---
Author Organization [facility] Address [address] [place] [address] Care Team Providers Care Customer Manager Name Role Phone Unavailable Primary Care Provider Unavailabl e Reason for Referral * Outpatient Services (Routine) - Closed Specialty Diagnoses / Procedures Referred By Ulises t Referred To Contact Diagnoses Diffuse cystic mastopathy, unspecified laterality Procedures MAMMO DIG SCREEN BILAT W 3D Amna Turner MD [address] [facility] [place] [address] Referral ID Status Reason Start Date Expiration Date Visits Re quested Visits Authorized [id number] Closed 06/04/2014 07/05/2015 1 1 T FIXTURE SERVICER Reason for Visit * Outpatient Services (Routine) - Closed Specialty Diagnoses / Procedures Referred By Contac t Referred To Contact Diagnoses Diffuse cystic mastopathy, unspecified laterality Procedures MAMMO DIG SCREEN BILAT W 3D Amna Turner MD [address] [facility] [place] [address] Referral ID Status Reason Start Date Expiration Date Visits Re quested Visits Authorized [id number] Closed 06/04/2014 07/05/2015 1 1 Encounter Details Date Type Department Care Team (Latest Contact Info) Description 06/07/2015 11:30 AM LIGHT FIXTURE SERVICER - 06/07/2015 11:59 PM LIGHT FIXTURE SERVICER Hospital Encounter [facility] [address] [place] [address] Amna Glez MD [address] [facility] [place] [address] Discharge Disposition: Home or Self [...] as of this encounter Progress Notes * Amna Glez MD - 06/10/2015 1:18 PM CSTQuick Note: Recommendation: It is recommended the patient return for left breast ultrasound of the new mass in the left breast T FIXTURE SERVICER documented in this encounter Plan of Treatment Upcoming Encounters Date Type Department Care Team (Late st Contact Info) Description 10/09/2024 1:30 PM CDT [facility] [address] [place] [address] Ariella Montaño MD [address] [place] [address] documented as of this encounter Procedures Procedure Name Priority Date/Time Associated Diagnosis Comments MAMMO 3D ADÁN SCREEN BILAT W OR WO CAD Routine 06/07/2015 11:57 AM LIGHT FIXTURE SERVICER Diffuse cystic mastopathy, unspecified laterality documented in this encounter Results * MAMMO DIG SCREEN BILAT W 3D ADÁN (06/07/2015 11:57 AM LIGHT FIXTURE SERVICER) Anatomical Region Laterality Modality Breast Bilateral Mammography 06/07/2015 11:5 6 AM LIGHT FIXTURE SERVICER Narrative 06/10/2015 11:06 AM LIGHT FIXTURE SERVICER BILATERAL FULL FIELD DIGITAL SCREENING MAMMOGRAM WITH CAD WITH 3D TOMOSYNTHESIS. 06/07/15 HISTORY: Routine Screening. TECHNIQUE: Full field digital screening mammography of both breasts were obtained. Low Dose full field Digital Breast tomosynthesis examination was performed with 2D and 3D acquisitions. ??Examination is read in conjunction with computer aided detection. COMPARISON: June 2014 and May 2013 and April 2009 BREAST PARENCHYMAL COMPOSITION: Scattered fibroglandular densities. [...] mass in the left breast Dictated from Alayna Moreira Procedure Note Mamie Cole MD - 06/10/2015 BILATERAL FULL FIELD DIGITAL SCREENING MAMMOGRAM WITH CAD WITH 3D TOMOSYNTHESIS. 06/07/15 HISTORY: Routine Screening. TECHNIQUE: Full field digital screening mammography of both breasts were obtained. Low Dose full field Digital Breast tomosynthesis examination was performed with 2D and 3D acquisitions. Examination is read in conjunction with computer aided detection. COMPARISON: June 2014 and May 2013 and April 2009 BREAST PARENCHYMAL COMPOSITION: Scattered fibroglandular densities. [...] the left [facility] Amna Glez MD MAMMO ORDERABLES documented in this encounter Visit Diagnoses Diagnosis Diffuse cystic mastopathy, unspecified laterality documented in this encounter
--- OUTSIDE RECORDS SUMMARY | 2024-07-22 10:15 | XMS_ITS | Continuity of Care Document ---
Author Organization [facility] Address [address] [place] [address] Phone Care Team Providers Care Inspector Ball Points Name Role Phone Jim OD, Bimal Unavailable Unavailable Advance Directives Directive Yes / No Effective Date File Name No Information Encounters Encounter Description Practice Location Reason(s) For Visit Diagnoses Date Provider Providers Copied on Encounter [facility], [address], [place], [place], [id number], [place] tel:[phone] [facility] No Information Oct- 1-200 2 Jim OD Bimal. [address] , [address], [place], [address], [place]. tel:[phone] Family History Family Member Type Diagnosis Age At Onset No Information Payers Payer name Insurance type Covered democrat ID Authoriza tion(s) No Information Social History Type Description Quantity Date Captured Comments Sex Female Smoking Status No Information Chief Complaint And Reason For Visit No Information Reason For Referral Reason For Referral No Information History Of Present Illness Encounter Date Complaint History Of Prese nt Illness No Information Functional Status Date Functional Assessmen t No Information Instructions Date Instruction Additional Infor mation No Information Assessments Type Assessment Date No Information Patient Care Teams Name Effective Dates (start - stop) Status Members No Information
--- OUTSIDE RECORDS SUMMARY | 2024-07-22 10:15 | XMS_ITS | Encounter Summary ---
Author Organization [facility] Address [address] [place] [address] Care Team Providers Care Chicle Grinder Feeder Name Role Phone Ariella Montaño MD Primary Care Provider Encounter Details Date Type Department Care Team (Late st Contact Info) Description 07/14/2023 External Device Data STL ABSTRACTION Provider, Abstract [...] [facility] [address] [place] [address] Ariella Montaño MD [address] [place] [address] documented as of this encounter Visit Diagnoses Not on filedocumented in this encounter Care Teams Chicle Grinder Feeder Relationship Specialty Start Date End Date Ariella Montaño MD [address] [place] [address] PCP - General Family Practice 08/22/21 documented as of this encounter
--- OUTSIDE RECORDS SUMMARY | 2024-07-22 10:15 | XMS_ITS | Encounter Summary ---
Author Organization [facility] Address [address] [place] [address] Care Team Providers Care Environmental Educator Name Role Phone Unavailable Primary Care Provider Unavailabl e Reason for Visit * Reason Onset Date Comments Results 09/12/2010 pathology Encounter Details Date Type Department Care Team (Late st Contact Info) Description 09/12/2010 Telephone [facility] [address] [place] [address] Amna Glez MD [address] [place] [address] Results (pathology) Social History Tobacco Use Types Packs/Day Years [...] encounter Miscellaneous Notes * Telephone Encounter - Tarah Angelo RN - 09/12/2010 10:36 AM TRACK INSPECTING SUPERVISOR Gave pathology results on right ultrasound-guided core biopsy done at [facility] physician services on September 08. Pathology revealed in the right breast tissue fibroadenoma and fibrocystic changes. Pathology is benign and concordant per Dr. Ruvalcaba. States is doing well. No complaints of pain. Set up follow up appointment with Dr. Glez on May 12 at 2:00 with bilateral mammogram at 1:00. K INSPECTING SUPERVISOR documented in this encounter Plan of Treatment Upcoming Encounters Date Type Department Care Team (Late st Contact Info) Description 10/09/2024 1:30 PM CDT Appointment [facility] [place] [address] [place] [address] Ariella Montaño MD [facility] [place] [address] documented as of this encounter Visit Diagnoses Not on filedocumented in this encounter
--- OUTSIDE RECORDS SUMMARY | 2024-07-22 10:15 | XMS_ITS | Encounter Summary ---
Author Organization [facility] Address [address] [place] [address] Care Team Providers Care Coroner'S Juror Name Role Phone Unavailable Primary Care Provider Unavailabl e Reason for Referral * Outpatient Services (Routine) - Closed Specialty Diagnoses / Procedures Referred By Ulises parra Referred To Contact Diagnoses Diffuse cystic mastopathy Procedures MAMMO DIGITAL SCREEN BILAmna Jara MD [address] [place] [address] Referral ID Status Reason Start Date Expiration Date Visits Re quested Visits Authorized [id number] Closed 05/29/2013 06/29/2014 1 1 Reason for Visit * Reason Comments Breast Exam, Routine, No Symptoms annual ck Encounter Details Date Type Department Care Team (Late st Contact Info) Description 05/29/2013 2:30 PM CDT Office Visit [facility] [address] [place] [address] Amna Glez MD [address] [place] [address] Diffuse cystic mastopathy (Primary Dx) Social History Tobacco Use Types [...] Sign Reading Time Taken Comments Blood Pressure 126/74 05/29/2013 2:15 PM CDT Pulse 70 05/29/2013 2:15 PM CDT Temperature - - Respiratory Rate - - Oxygen Saturation - - Inhaled Oxygen Concentration - - Weight 78.9 kg (174 lb) 05/29/2013 2:15 PM CDT Height 157.5 cm (5' 2 ) 05/29/2013 2:15 PM CDT Body Mass Index 31.83 05/29/2013 2:15 PM CDT documented in this encounter Progress Notes * Amna Glez MD - 05/29/2013 2:30 PM CDT PATIENT: Tari Pagan : 1965 DATE: 05/29/2013 Tari Pagan is a 48 y.o. female. 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 She is . She rarely drinks. She does not smoke. ROS: unremarkable No new breast complaints No past medical history on file. Past Surgical History Procedure Laterality Date ??? Hx breast surgery - other left breast tumor removed ??? Hx hysterectomy 2009 partial ??? Hx surgical other 2006 basal cell removed from upper lip ??? Hx gómez and bso ??? Hx core needle breast biopsy Right Allergies Allergen Reactions ??? Codeine Nausea and Vomiting BP 126/74 Pulse 70 Ht 5' 2 (1.575 m) Wt 174 lb (78.926 kg) BMI 31.82 kg/m2 ? No PHYSICAL EXAM: Well-developed, well-nourished, [...] 01, 2010 at the imaging Center of [facility] in [place], [place]. Bilateral asymmetric densities, which persists on spot compression views. Bilateral breast ultrasound: September 01, 2010. No abnormalities are seen in the left breast. In theright breast at 10:00. There is a simple cyst. In the right breast at 9:00. There is a complex cystic structure a for which a biopsy has been recommended Right ultrasound-guided core biopsy: 09/08/2010 at [facility]; FA, FCC Mammogram: 05/12/2011 at [facility]; NEM Mammogram: 05/16/2012 at [facility]; nem Mammogram: 05/29/2013 at [facility]; nem, pending official reading IMPRESSION /PLAN: 48 y.o. woman with stable examination and screening mammogram I have personally reviewed her mammogram today I'll see her back in May 2014 for bilateral mammogram Amna Glez MD.FACS. cc: Yulissa Bunn MD [address] [facility] [address] [place] [address] documented in this encounter Plan of Treatment Upcoming Encounters Date Type Department Care Team (Late st Contact Info) Description 10/09/2024 1:30 PM CDT Appointment [facility] [place] [address] [place] [address] Ariella Montaño MD [address] [place] [address] documented as of this encounter Results * MAMMO DIGITAL SCREEN BILAT (06/04/2014 2:20 PM CLOTH FINISHING RANGE OPERATOR) Anatomical Region Laterality Modality Breast Bilateral Mammography 06/04/2014 2:08 PM CLOTH FINISHING RANGE OPERATOR Narrative 06/05/2014 11:16 AM CLOTH FINISHING RANGE OPERATOR BILATERAL FULL FIELD DIGITAL SCREENING MAMMOGRAM [...] mammography is recommended. Dictated from Alayna Moreira Procedure Note Mamie Cole MD - 06/05/2014 BILATERAL FULL FIELD DIGITAL SCREENING MAMMOGRAM WITH [...] this encounter Visit Diagnoses Diagnosis Diffuse cystic mastopathy- Primary Diffuse cystic mastopathy documented in this encounter
--- OUTSIDE RECORDS SUMMARY | 2024-07-22 10:15 | XMS_ITS | Encounter Summary ---
Author Organization [facility] Address [address] [place] [address] Care Team Providers Care Floor Representative Name Role Phone Unavailable Primary Care Provider Unavailabl e Reason for Referral * Outpatient Services (Routine) - Closed Specialty Diagnoses / Procedures Referred By Contsasha t Referred To Contact Diagnoses Abnormal mammogram Procedures MAMMO DIGITAL DIAG BILAT Amna Glez MD [address] [place] [address] Referral ID Status Reason Start Date Expiration Date Visits Re quested Visits Authorized [id number] Closed 09/12/2010 03/11/2011 1 1 TESTER Encounter Details Date Type Department Care Team (Late Contact Info) Description 09/12/2010 Orders Only [facility] BREAST SURGERY - [place] [facility] [address] [place] [address] Amna Glez MD [address], [place] [address] Abnormal mammogram (Primary Dx) Social [...] Department Care Team (Late Contact Info) Description 10/09/2024 1:30 PM CDT Appointment [facility] [place] Catal[place] [address] [place] [address] Ariella Montaño MD [address] [place] [address] documented as of this encounter [...]
--- OUTSIDE RECORDS SUMMARY | 2024-07-22 10:15 | XMS_ITS | Encounter Summary ---
Author Organization [facility] Address [address] [place] [address] Care Team Providers Care Vat Cleaner Name Role Phone Unavailable Primary Care Provider Unavailabl e Reason for Referral * Outpatient Services (Routine) - Closed Specialty Diagnoses / Procedures Referred By Ulises parra Referred To Contact Diagnoses Diffuse cystic mastopathy Procedures MAMMO DIGITAL SCREEN BILAmna Jara MD [address] [place] [address] Referral ID Status Reason Start Date Expiration Date Visits Re quested Visits Authorized [id number] Closed 05/16/2012 05/30/2013 1 1 Reason for Visit * Reason Comments Breast Exam, Routine, No Symptoms annual ck Encounter Details Date Type Department Care Team (Late st Contact Info) Description 05/16/2012 2:30 PM CDT Office Visit [facility] [address] [address] [place] [address] Amna Glez MD [address] [place] [address] Diffuse cystic mastopathy (Primary Dx) [...] Sign Reading Time Taken Comments Blood Pressure 106/68 05/16/2012 2:18 PM CDT Pulse - - Temperature - - Respiratory Rate - - Oxygen Saturation - - Inhaled Oxygen Concentration - - Weight 78.9 kg (174 lb) 05/16/2012 2:18 PM CDT Height 157.5 cm (5' 2 ) 05/16/2012 2:18 PM CDT Body Mass Index 31.83 05/16/2012 2:18 PM CDT documented in this encounter Progress Notes * Amna Glez MD - 05/16/2012 2:32 PM CDT PATIENT: Tari Pagan : 1965 DATE: 05/16/2012 Tari Pagan is a 47 y.o. female. 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 She is . She rarely drinks. She does not smoke. ROS: unremarkable BP 106/68 Ht 5' 2 (1.575 m) Wt 174 lb (78.926 kg) BMI 31.83 kg/m2 PHYSICAL EXAM: Well-developed, well-nourished, pleasant woman. [...] 01, 2010 at the imaging Center of [facility] in [place], [place]. Bilateral asymmetric densities, which persists on spot compression views. Bilateral breast ultrasound: September 01, 2010. No abnormalities are seen in the left breast. In theright breast at 10:00. There is a simple cyst. In the right breast at 9:00. There is a complex cystic structure a for which a biopsy has been recommended Right ultrasound-guided core biopsy: 09/08/2010 at [facility]; FA, FCC Mammogram: 05/12/2011 at [facility]; NEM Mammogram: 05/16/2012 at [facility]; nem IMPRESSION /PLAN: Stable examination and screening mammogram I'll see her back in May 2013 for bilateral mammogram Amna Glez MD.FACS. cc: Yulissa Bunn MD [address] [facility] [address] [place] [address] documented in this encounter Plan of Treatment Upcoming Encounters Date Type Department Care Team (Late st Contact Info) Description 10/09/2024 1:30 PM CDT Appointment [facility] [place] [address] [place] [address] Ariella Montaño MD [address] [place] [address] documented as of this encounter Results * MAMMO DIGITAL SCREEN BILAT (05/29/2013 2:10 PM CDT) Anatomical Region Laterality Modality Breast Bilateral Mammography 05/29/2013 2:09 PM CDT Narrative 06/06/2013 11:38 AM CNMT BILATERAL FULL FIELD DIGITAL SCREENING MAMMOGRAM WITH [...] Moreira Procedure Note Mamie Cole MD - 06/06/2013 [...]
--- OUTSIDE RECORDS SUMMARY | 2024-07-22 10:15 | XMS_ITS | Encounter Summary ---
Author Organization [facility] Address [address] [place] [address] Care Team Providers Care Solution Coordinator Name Role Phone Unavailable Primary Care Provider Unavailabl e Reason for Referral * Outpatient Services (Routine) - Closed Specialty Diagnoses / Procedures Referred By Blessingac t Referred To Contact Diagnoses Diffuse cystic mastopathy, unspecified laterality Procedures MAMMO DIG SCREEN BILAT W 3D Amna Turner MD [address] [facility] [place] [address] Referral ID Status Reason Start Date Expiration Date Visits Re quested Visits Authorized [id number] Closed 06/08/2016 07/09/2017 1 1 RING BOX OPERATOR Reason for Visit * Outpatient Services (Routine) - Closed Specialty Diagnoses / Procedures Referred By Contac t Referred To Contact Diagnoses Diffuse cystic mastopathy, unspecified laterality Procedures MAMMO DIG SCREEN BILAT W 3D Amna Turner MD [address] [facility] [place] [address] Referral ID Status Reason Start Date Expiration Date Visits Re quested Visits Authorized [id number] Closed 06/08/2016 07/09/2017 1 1 Encounter Details Date Type Department Care Team (Latest Contact Info) Description 06/09/2017 11:55 AM ORDERING BOX OPERATOR - 06/09/2017 11:59 PM ORDERING BOX OPERATOR Hospital Encounter [facility] [place] [address] [address] [place] [address] Amna Glez MD [address] [facility] [place] [address] Discharge Disposition: Home or Self [...] Info) Description 10/09/2024 1:30 PM CDT Appointment [facility] [place] [address] [place] [phone] Ariella Montaño MD [address] [place] [address] documented as of this encounter Procedures Procedure Name Priority Date/Time Associated Diagnosis Comments MAMMO 3D ADÁN SCREEN BILAT W OR WO CAD Routine 06/09/2017 12:11 PM ORDERING BOX OPERATOR Diffuse cystic mastopathy, unspecified laterality documented in this encounter Results * MAMMO DIG SCREEN BILAT W 3D ADÁN (06/09/2017 12:11 PM ORDERING BOX OPERATOR) Anatomical Region Laterality Modality Breast Bilateral Mammography 06/09/2017 12:1 1 PM ORDERING BOX OPERATOR Impressions 06/09/2017 3:59 PM ORDERING BOX OPERATOR IMPRESSION: 1. No concerning developing abnormality identified. 2. Changes consistent with a benign process as above. OVERALL ASSESSMENT: BI-RADS Category 2 - Benign findings RECOMMENDATIONS: 1. Recommend annual mammography. Narrative 06/09/2017 3:59 PM ORDERING BOX OPERATOR BILATERAL SCREENING DIGITAL MAMMOGRAM WITH TOMOSYNTHESIS AND CAD DATE: 06/09/2017 12:11 PM DICTATION LOCATION: [facility] (Location #3) HISTORY: Routine yearly screening mammogram. TECHNIQUE: Standard images of both breasts were obtained on a digital system. 2D and 3D acquisitions were obtained of both breasts. CAD was utilized. COMPARISON: Studies dating back to 09/01/2010 BREAST COMPOSITION: Heterogeneously dense, which limits the sensitivity of mammography FINDINGS: No concerning dominant masses, suspicious calcifications, parenchymal asymmetry or areas of architectural distortion are identified in either breast. Postoperative changes of an excisional biopsy within the left breast superiorly. There are also several partially circumscribed masses identified within the central and slightly lateral aspect of the left breast that appear unchanged from the previous exam. These are most consistent with the patient's previously diagnosed cysts. Procedure Note Pool Sosa MD - 06/09/2017 BILATERAL SCREENING DIGITAL MAMMOGRAM WITH TOMOSYNTHESIS AND CAD DATE: 06/09/2017 12:11 PM DICTATION LOCATION: [facility] (Location #3) HISTORY: Routine yearly screening mammogram. TECHNIQUE: Standard images of both breasts were obtained on a digital system. 2D and 3D acquisitions were obtained of both breasts. CAD was utilized. COMPARISON: Studies dating back to 09/01/2010 BREAST COMPOSITION: Heterogeneously dense, which limits the sensitivity of mammography FINDINGS: No concerning dominant masses, suspicious calcifications, parenchymal asymmetry or areas of architectural distortion are identified in either breast. Postoperative changes of an excisional biopsy within the left breast superiorly. There are also several partially circumscribed masses identified within the central and slightly lateral aspect of the left breast that appear unchanged from the previous exam. These are most consistent with the patient's previously diagnosed cysts. IMPRESSION: 1. No concerning developing abnormality identified. 2. Changes consistent with a benign process as above. OVERALL ASSESSMENT: BI-RADS Category 2 - Benign findings RECOMMENDATIONS: 1. Recommend annual mammography. Amna Glez MD MAMMO ORDERABLES documented in this encounter Visit Diagnoses Diagnosis Diffuse cystic mastopathy, unspecified laterality documented in this encounter
--- OUTSIDE RECORDS SUMMARY | 2024-07-22 10:15 | XMS_ITS | Encounter Summary ---
Author Organization [email or web address] Address [address] [place] [address] Care Team Providers Care Installation Coordinator Name Role Phone Ariella Montaño MD Primary Care Provider [phone] Reason for Referral * Radiology Services (Routine) - Closed Specialty Diagnoses / Procedures Referred By Contac t Referred To Contact Radiology Diagnoses Breast cancer screening by mammogram Procedures MAMMO SCRN BILAT 3D ADÁN W OR WO CAD CHG SCREENING MAMMOGRAPHY BI 2-VIEW BREAST INC CAD CHG SCREENING DIGITAL BREAST TOMOSYNTHESIS BI Mercedes Coffey MD [address] [facility] [address] [place] [address] [facility] [address] [address] [place] [address] Referral ID Status Reason Start Date Expiration Date Visits Re quested Visits Authorized [id number] Closed 06/13/2021 07/14/2022 1 1 STRIAL TECH INSTRUCTOR Reason for Visit * Radiology Services (Routine) - Closed Specialty Diagnoses / Procedures Referred By Contac t Referred To Contact Radiology Diagnoses Breast cancer screening by mammogram Procedures MAMMO SCRN BILAT 3D ADÁN W OR WO CAD CHG SCREENING MAMMOGRAPHY BI 2-VIEW BREAST INC CAD CHG SCREENING DIGITAL BREAST TOMOSYNTHESIS BI Mercedes Coffey MD [address] [place] [address] [place] [address] [facility] [address] [place] [address] Referral ID Status Reason Start Date Expiration Date Visits Re quested Visits Authorized [id number] Closed 06/13/2021 07/14/2022 1 1 Encounter Details Date Type Department Care Team (Latest Contact Info) Description 09/02/2021 9:55 AM INDUSTRIAL TECH INSTRUCTOR - 09/02/2021 11:59 PM INDUSTRIAL TECH INSTRUCTOR Hospital Encounter [facility] [place] [address] [place] [address] Mercedes Coffey MD [address] [place] [address] Discharge Disposition: Home or Self Care [...] have Coronavirus / COVID-19? No / Unsure 09/02/2021 9:51 AM INDUSTRIAL TECH INSTRUCTOR documented as of this encounter Medications at Time of Discharge Medication Sig Dispensed Refills Start Date End Date flu vaccine quadrivalent 2019-21, 6 mo+,,PF, (Flulaval Quad , PF,) 60 mcg (15 mcg x 4)/0.5 mL Syringe syringe TO BE ADMINISTERED BY A PHARMACIST 0.5 mL 09/06/2020 estradiol (ESTRACE) 1 mg tablet Take 1 mg by mouth daily. documented as of this encounter Plan of Treatment Upcoming Encounters Date Type Department Care Team (Late st Contact Info) Description 10/09/2024 1:30 PM CDT Appointment [facility] [place] [address] [place] [address] Ariella Montaño MD [address] [place] [address] documented as of this encounter Procedures Procedure Name Priority Date/Time Associated Diagnosis Comments MAMMO 3D ADÁN SCREEN BILAT W OR WO CAD Routine 09/02/2021 10:12 AM INDUSTRIAL TECH INSTRUCTOR Breast cancer screening by mammogram documented in this encounter Results * MAMMO SCRN BILAT 3D ADÁN W OR WO CAD (09/02/2021 10:12 AM INDUSTRIAL TECH INSTRUCTOR) Anatomical Region Laterality Modality Breast Bilateral Mammography 09/02/2021 10:1 2 AM INDUSTRIAL TECH INSTRUCTOR Impressions 09/04/2021 7:28 AM INDUSTRIAL TECH INSTRUCTOR IMPRESSION: ?? No evidence of malignancy in the right or left breast. RECOMMENDATION: Screening mammogram in one year. OVERALL FINAL ASSESSMENT: ??BI-RADS CATEGORY 2 - Benign findings Results will be sent to patient via lay letter by mail. ?? DICTATION LOCATION: ??[facility]illie Catalan Narrative 09/04/2021 7:28 AM INDUSTRIAL TECH INSTRUCTOR BILATERAL SCREENING DIGITAL MAMMOGRAM WITH 3D TOMOSYNTHESIS AND CAD EXAM DATE: 09/02/2021 10:12 AM INDICATION: Breast cancer screening. 56-year-old asymptomatic female. History provided at time of exam: Previous excisional biopsy on the left. Previous core needle biopsy on the right. Family history of breast cancer in maternal aunt. COMPARISON: 09/06/2020, 06/30/2019, 06/16/2018, 06/09/2017 BREAST COMPOSITION: There are scattered areas of fibroglandular density. ?? FINDINGS: ?? Postsurgical distortion in the left breast is stable. A biopsy clip is seen on the right. Scattered benign-appearing breast calcifications are unchanged. No new or suspicious masses or microcalcifications. No suspicious mammographic or tomographic finding to suggest malignancy or significant interval change. CAD was used. ?? Procedure Note Marisa Hawk MD - 09/04/2021 BILATERAL SCREENING DIGITAL MAMMOGRAM WITH 3D TOMOSYNTHESIS AND CAD EXAM DATE: 09/02/2021 10:12 AM INDICATION: Breast cancer screening. 56-year-old asymptomatic female. History provided at time of exam: Previous excisional biopsy on the left. Previous core needle biopsy on the right. Family history of breast cancer in maternal aunt. COMPARISON: 09/06/2020, 06/30/2019, 06/16/2018, 06/09/2017 BREAST COMPOSITION: There are scattered areas of fibroglandular density. FINDINGS: Postsurgical distortion in the left breast is stable. A biopsy clip is seen on the right. Scattered benign-appearing breast calcifications are unchanged. No new or suspicious masses or microcalcifications. No suspicious mammographic or tomographic finding to suggest malignancy or significant interval change. CAD was used. IMPRESSION: No evidence of malignancy in the right or left breast. RECOMMENDATION: Screening mammogram in one year. OVERALL FINAL ASSESSMENT: BI-RADS CATEGORY 2 - Benign findings Results will be sent to patient via lay letter by mail. DICTATION LOCATION: [facility] Mercedes Coffey MD MAMMO ORDERABLES documented in this encounter Visit Diagnoses Diagnosis Breast cancer screening by mammogram documented in this encounter Care Teams Installation Coordinator Relationship Specialty Start Date End Date Ariella Montaño MD [address] [place] [phone] PCP - General Family Practice 08/22/21 documented as of this encounter
--- OUTSIDE RECORDS SUMMARY | 2024-07-22 10:15 | XMS_ITS | Encounter Summary ---
Author Organization [facility] Address [address] [place] [address] Care Team Providers Care Trial Court Judge Name Role Phone Unavailable Primary Care Provider Unavailabl e Reason for Visit * Reason Onset Date Comments Breast Exam, Routine, No Symptoms 05/31/2014 SCREENING MAMM Encounter Details Date Type Department Care Team (Late st Contact Info) Description 05/31/2014 Patient Outreach [facility] BREAST SURGERY - [place] [address] [place] [address] Amna Glez MD [address] [place] [place] [address] Breast Exam, Routine, No Symptoms (SCREENING MAMM) Social History Tobacco Use Types Packs/Day Years [...] encounter Miscellaneous Notes * Telephone Encounter - Leann Hoffmann - 05/31/2014 3:02 PM CDT PT REMINDED OF SCREENING MAMM PRIOR TO ANNUAL DR FRANCES documented in this encounter Plan of Treatment Upcoming Encounters Date Type Department Care Team (Late st Contact Info) Description 10/09/2024 1:30 PM CDT Appointment [facility] [place] [address] [place] [phone] Ariella Montaño MD [address] [place] [address] documented as of this encounter Visit Diagnoses Not on filedocumented in this encounter
--- OUTSIDE RECORDS SUMMARY | 2024-07-22 10:15 | XMS_ITS | Encounter Summary ---
Author Organization [facility] Address [address] [facility] Attn: Epic Prelude ADT [place] [address] Care Team Providers Care Dispatcher Ship Pilot Name Role Phone Ariella Montaño MD Primary Care Provider [phone] Encounter Details Date Type Department Care Team (Latest Contact Info) Description 09/02/2021 Travel Social History Tobacco Use Types Packs/Day [...] COVID-19? No / Unsure 09/02/2021 9:51 AM TAPPER BIT documented as of this encounter Plan of Treatment Upcoming Encounters Date Type Department Care Team (Late st Contact Info) Description 10/09/2024 1:[address] [facility] [place] [address] [place] [address] Ariella Montaño MD [address] [place] [address] documented as of this encounter Visit Diagnoses Not on filedocumented in this encounter Care Teams Dispatcher Ship Pilot Relationship Specialty Start Date End Date Ariella Montaño MD [address] [place] [address] PCP - General Family Practice 08/22/21 documented as of this encounter
--- OUTSIDE RECORDS SUMMARY | 2024-07-22 10:15 | XMS_ITS | Encounter Summary ---
Author Organization [facility] Address [address] [place] [address] Care Team Providers Care Senior Application Programmer Name Role Phone Unavailable Primary Care Provider Unavailabl e Reason for Visit * Outpatient Services (Routine) - Closed Specialty Diagnoses / Procedures Referred By Contac t Referred To Contact Radiology Diagnoses Abnormal mammogram Procedures MAMMO BREAST US ASPIRATION RIGHT Amna Glez MD [address] [place] [address] Referral ID Status Reason Start Date Expiration Date Visits Re quested Visits Authorized [id number] Closed 09/08/2010 03/07/2011 1 1 Encounter Details Date Type Department Care Team (Latest Contact Info) Description 09/08/2010 1:16 PM ORACLE EBS ARCHITECT - 09/08/2010 11:59 PM [facility] Hospital Encounter [facility] [place] [address] [place] [address] Amna Glez MD [address] [place] [address] Discharge Disposition: Home or Self [...] Appointment [facility] [place] [address] [place] [address] Ariella Montaño MD [address] [place] [address] documented as of this encounter Procedures Procedure Name Priority Date/Time Associated Diagnosis Comments MAMMO BREAST US BIOPSY RIGHT Routine 09/08/2010 3:09 PM ORACLE EBS ARCHITECT Abnormal mammogram PATHOLOGY Routine 09/08/2010 2:41 PM ORACLE EBS ARCHITECT documented in this encounter Results * MAMMO BREAST US BIOPSY RIGHT (09/08/2010 3:09 PM ORACLE EBS ARCHITECT) Anatomical Region Laterality Modality Breast Right Ultrasound Addenda Addendum by Ling Mustafa on 09/15/2010 4:19 PM ORACLE EBS ARCHITECT The pathology from the patient's recent right breast ultrasound guided core biopsy reveals fibroadenoma and fibrocystic changes. These findings are benign and concordant. The patient will be informed of the above findings by Dr. Tesha Ward. Impressions 09/09/2010 4:41 PM ORACLE EBS ARCHITECT : Technically successful ultrasound-guided core biopsy with tissue marker placement. Narrative 09/09/2010 4:41 PM ORACLE EBS ARCHITECT ULTRASOUND-GUIDED CORE BIOPSY OF THE RIGHT BREAST, [...] in formalin for histological analysis. Procedure Note Ling Mustafa - 09/15/2010 ULTRASOUND-GUIDED CORE BIOPSY OF THE RIGHT BREAST, [...] marker placement. Amna Glez MD MAMMO ORDERABLES * PATHOLOGY (09/08/2010 2:41 PM ORACLE EBS ARCHITECT) SURGICAL PATHOLOGY ?[facility] ?[address] ? [place], [place] ??[address] ? Patient: ??EJ BRADFORD J ? : ??1965 ? Procedure Date: ??09/08/2010 ? Accession Date: ??09/08/2010 ? Case No: ??[id number] ? Ordering Dr: ??LING MUSTAFA ? Case type SW is performed by [facility], [address] [place] [address], ? [place], [place] ??[address]; all other case types are performed by [facility] ? [facility], [address] [place], [place] ??[address] ?SURGICAL PATHOLOGY & NON-GYNECOLOGIC CYTOPATHOLOGY REPORT ? DIAGNOSIS ? BREAST, RIGHT, CORE BIOPSIES: ? - FIBROADENOMA. ? - FIBROCYSTIC CHANGES. ? Specimen Description: ? Right breast, tissue obtained at 1438, in formalin at 1441. ? Operative Procedure: ? Right breast ultrasound core biopsy, two 10-gauge cores. ? Patient Information/Histo ry/Diagnosis: ? Right breast mass. ? Gross: ? Received in a single container labeled Bradford Pagan, right breast ? mass are two cores of yellow-bae fibrofatty tissue, both 0.3 cm in ? diameter and 1.5 and 2.2 cm in length. The specimen is entirely submitted ? in cassette A1. ? KLA/MARTIR 09.09.2010 10:31 am ? Microscopic: ? The slides are labeled Bradford Ej and [id number]. ? One of the core biopsies contains a well-circumscribe d fibroadenoma ? composed of slit-like ducts surrounded by dense collagenous hypocellular ? fibrous stroma. No complex features are identified in the fibroadenoma. ? Otherwise, the breast parenchyma shows areas of dense fibrosis and areas of ? apocrine metaplasia. No significant epithelial hyperplasia or cytologic ? atypia is identified. ? COMMENT: Certain proliferative lesions identified in breast biopsies are ? associated with an increased relative risk for the development of invasive ? carcinoma. According to data at this time, there is no increased relative ? risk (compared to the risk for women who have not had a breast biopsy) for ? patients whose biopsies contain: ??adenosis; duct ectasia; fibrosis; ? fibroadenoma (without complex features); mild hyperplasia without atypia; ? cysts; apocrine or squamous metaplasia. ? Reference: Arch Pathol Lab Med 1998;122:1053-105 5. ? JCL/PJS 09.10.2010 01:25 pm ? Staging Form: ? No ? ELECTRONIC SIGNATURE FOR KATELYNN SANTIZO M.D.- 09/10/10 05:49 pm [facility] Specimen of unknown material (specimen) 09/08/2010 2:41 PM ORACLE EBS ARCHITECT Amna Glez MD PATHOLOGY/CYTOLOGY O RDERABLES [facility] CLIA# [id number] [address] [place] [address] documented in this encounter Visit Diagnoses Diagnosis Abnormal mammogram Abnormal mammogram, unspecified documented in this encounter Administered Medications Inactive Administered Medications - up to 3 most recent administrations Medication Order MAR Action Action Date Dose Rate Site lidocaine PF 1% (XYLOCAINE MPF) 10 mg/mL (1 %) injection 30 mL 30 mL, Intradermal, ONE TIME ONLY, 1 dose, On 2/7/11 at 1445, Routine Given 09/08/2010 2:45 PM ORACLE EBS ARCHITECT 12 mL Operative Site sodium bicarbonate 4.2 % injection 2.5 mEq 2.5 mEq (5 mL), See Admin Instructions, ONE TIME ONLY, 1 dose, On Wed09/08/10 at 1445, Routine Given 09/08/2010 2:45 PM ORACLE EBS ARCHITECT 0.5 mEq Operative Site documented in this encounter
--- OUTSIDE RECORDS SUMMARY | 2024-07-22 10:15 | XMS_ITS | Encounter Summary ---
Author Organization [facility] Address [address] [place] [address] Care Team Providers Care Fire Controlman Name Role Phone Unavailable Primary Care Provider Unavailabl e Reason for Referral * Outpatient Services (Routine) - Closed Specialty Diagnoses / Procedures Referred By Ulises parra Referred To Contact Diagnoses Abnormal mammogram Procedures MAMMO DIGITAL OBEDG Amna Stone MD [address] [facility] [place] [address] Referral ID Status Reason Start Date Expiration Date Visits Re quested Visits Authorized [id number] Closed 05/12/2011 05/11/2012 1 1 Reason for Visit * Outpatient Services (Routine) - Closed Specialty Diagnoses / Procedures Referred By Ulises parra Referred To Contact Diagnoses Abnormal mammogram Procedures MAMMO DIGITAL Amna Nick MD [address] [place] [address] Referral ID Status Reason Start Date Expiration Date Visits Re quested Visits Authorized [id number] Closed 05/12/2011 05/11/2012 1 1 Encounter Details Date Type Department Care Team (Latest Contact Info) Description 05/16/2012 1:45 PM CDT - 05/16/2012 11:59 PM CDT Hospital Encounter [facility] [place] [address] [address] [place] [address] Amna Glez MD [address] [place] [address] Discharge Disposition: Home or Self Care Social [...] CDT Appointment [facility] [place] [address] [place] [address] Ariella Montaño MD [address] [place] [address] documented as of this encounter Procedures Procedure Name Priority Date/Time Associated Diagnosis Comments MAMMO DIAGNOSTIC BILATERAL W OR WO CAD Routine 05/16/2012 2:05 PM CDT Abnormal mammogram documented in this [...]
--- OUTSIDE RECORDS SUMMARY | 2024-07-22 10:15 | XMS_ITS | Encounter Summary ---
Author Organization [facility] Address [address] [place] [address] Care Team Providers Care Liquor Grinder Mill Operator Name Role Phone Ariella Montaño MD Primary Care Provider [phone] Reason for Referral * Radiology Services (Routine) - Closed Specialty Diagnoses / Procedures Referred By Contac t Referred To Contact Radiology Diagnoses Visit for screening mammogram Procedures MAMMO 3D ADÁN SCREEN BILAT W OR WO CAD CHG SCREENING MAMMOGRAPHY BI 2-VIEW BREAST INC CAD CHG SCREENING DIGITAL BREAST TOMOSYNTHESIS BI Ariella Montaño MD [address] [place] [address] [facility] [address] [address] [place] [address] Referral ID Status Reason Start Date Expiration Date Visits Re quested Visits Authorized [id number] Closed 09/27/2023 10/27/2024 1 1 FICATION LEAD Encounter Details Date Type Department Care Team (Latest Contact Info) Description 09/27/2023 Transcribe Orders Central Test Scheduling [address] [place] [address] Ariella Montaño MD [address] [place] [address] Visit for screening mammogram (Primary [...] Description 10/09/2024 1:[address] [facility] [place] [address] [place] [address] Ariella Montaño MD [address] [place] [address] documented as of this encounter Results * MAMMO 3D ADÁN SCREEN BILAT W OR WO CAD (10/08/2023 11:12 AM VERIFICATION LEAD) Anatomical Region Laterality Modality Breast Bilateral Mammography 10/08/2023 11:1 2 AM VERIFICATION LEAD Impressions 10/08/2023 1:43 PM VERIFICATION LEAD IMPRESSION: No suspicious findings to suggest malignancy in either breast. Annual mammography is recommended. ?? OVERALL FINAL ASSESSMENT: ??BI-RADS CATEGORY 2: Benign findings Narrative 10/08/2023 1:43 PM VERIFICATION LEAD BILATERAL SCREENING DIGITAL MAMMOGRAM WITH 3D TOMOSYNTHESIS AND CAD DATE: 10/08/2023 11:12 AM HISTORY: Routine screening. DICTATION LOCATION: ??[facility] TECHNIQUE: Full-field digital craniocaudal and mediolateral oblique [...] 11:12 AM HISTORY: Routine screening. [facility] [place] TECHNIQUE: Full-field digital craniocaudal and mediolateral oblique [...] mammogram documented in this encounter Care Teams Liquor Grinder Mill Operator Relationship Specialty Start Date End Date Ariella Montaño MD [address] [place] [address] PCP - General Family Practice 08/22/21 documented as of this encounter
--- OUTSIDE RECORDS SUMMARY | 2024-07-22 10:15 | XMS_ITS | Encounter Summary ---
Author Organization [facility] Address [address] [place] [address] Care Team Providers Care Airdrop Systems Technician Name Role Phone Ariella Montaño MD Primary Care Provider Encounter Details Date Type Department Care Team (Late st Contact Info) Description 11/02/2023 External Device Data STL ABSTRACTION Provider, Abstract [...] [facility] [address] [place] [phone] Ariella Montaño MD [address] [place] [address] documented as of this encounter Visit Diagnoses Not on filedocumented in this encounter Care Teams Airdrop Systems Technician Relationship Specialty Start Date End Date Ariella Montaño MD [address] [place] [address] PCP - General Family Practice 08/22/21 documented as of this encounter
--- OUTSIDE RECORDS SUMMARY | 2024-07-22 10:15 | XMS_ITS | Encounter Summary ---
Author Organization [facility] Address [address] [facility] Attn: [place] [address] Care Team Providers Care Income Tax Return Preparer Name Role Phone Jessy Desai MD Primary Care Provi [facility] Encounter Details Date Type Department Care Team (Latest Contact Info) Description 08/05/2020 Travel Social History Tobacco Use Types Packs/Day [...] or suspected to have Coronavirus / COVID-19? Yes 08/05/2020 11:43 AM OVEN OPERATOR AUTOMATIC documented as of this encounter Plan of Treatment Upcoming Encounters Date Type Department Care Team (Late st Contact Info) Description 10/09/2024 1:30 PM CDT Appointment [facility] [address] [place] [address] Ariella Montaño MD [address] [place] [address] documented as of this encounter Visit Diagnoses Not on filedocumented in this encounter Care Teams Income Tax Return Preparer Relationship Specialty Start Date End Date Jessy Desai MD [address] [place] [address] PCP - General Family Practice 06/09/18 08/21/21 documented as of this encounter
== END 2024-07-18 11:03 | disposition home or self-care (01) ==
LOC: ANHSURGERY 10:14 → ANHOB2 17:25
PROVIDERS: PCP Family Medicine; Visit Provider Urology
PROC: (CPT 57425; principal; 2024-07-17 07:30)
DX: N81.85 Cervical stump prolapse (principal); N39.3 Stress incontinence (female) (male); I10 Essential (primary) hypertension
CPT/HCPCS: 57425; 57288; S2900; 99199; A9270; C1771; C1781; J1100; J1171; J1650; J1836; J1885; J2003; J2250; J2405; J2704; J3010; J3480; J7030; J7120

== ENCOUNTER 2024-08-31 15:12 | Outpatient (CLI) | payer BC, SELFPAY ==
--- NOTE | ~2024-08-31 | DEXA_ITS ---
Bone Density Report Name: BRADFORD NOLASCO Age: 59 Sex: Female Ethnicity: White Date of : 1965 Indication: postmenopausal; screening for osteoporosis; parental hip fracture; cancer; hysterectomy; Referring Provider: VICTORIANO CARLOS Study: Bone densitometry was performed. Exam Date: August 31, 2024 Accession number: [id number] Bone Density: Region BMD T-score Z-score Classification AP Spine(L1-L4) 1.153 1.0 2.3 Normal Femoral Neck (Left) 0.841 -0.1 1.1 Normal Total Hip (Left) 1.001 0.5 1.4 Normal Femoral Neck (Right) 0.779 -0.6 0.6 Normal Total Hip (Right) 1.002 0.5 1.4 Normal Total Hip Mean 1.002 0.5 1.4 Normal World Health Organization criteria for BMD impression classify patients as: Normal (T-score at or above -1.0), Osteopenia (T-score between -1.0 and -2.5), or Osteoporosis (T-score at or below -2.5). 10-year Fracture Risk: FRAX not reported because: All T-scores for Spine Total, Hip Total, Femoral Neck at or above -1.0 Previous Exams: Region Exam Age BMD T-score BMD Change BMD Change Date g/cm2 vs Baseline vs Previous AP Spine (L1-L4) 08/31/2024 59 1.153 1.0 0.037 (3.3%)* 0.037 (3.3%)* 07/20/2022 57 1.116 0.6 Total Hip(Left) 08/31/2024 59 1.001 0.5 0.046 (4.8%)* 0.046 (4.8%)* 07/20/2022 57 0.955 0.1 Total Hip(Right) 08/31/2024 59 1.002 0.5 0.026 (2.7%) 0.026 (2.7%) 07/20/2022 57 0.976 0.3 *Denotes significance at 95% confidence level, LSC for AP Spine = 0.022 g/cm2, LSC for Total Hip = 0.027 g/cm2 Clinical Information Provided by Patient: Parent has had a hip fracture Has used the following medications: HRT (i.e. estrogen/hormone therapy), Vitamin D Has the following medical conditions: Cancer, Hysterectomy Patient maximum height was 62 Menopause Age: 43 No regular weight bearing exercise Drinks caffeinated beverages Onset of menses at age 12 Number of children 2 Impression: The patient has normal bone mass. The patient has risk factors, including: parental hip fracture. No significant bone loss was observed. Discussion: BONE DENSITY IS ABOVE THE MINIMUM DESIRABLE LEVEL AT ALL SKELETAL SITES TESTED. This patient?s bone mineral density is above the minimum desirable level (T-score -1.0 or better) at all sites measured. The patient should follow a healthful lifestyle (good nutrition with adequate calcium and vitamin D, and appropriate weight-bearing exercise). Follow-Up: Consider repeating this study in 5 years or sooner if there is some new clinical indication. Reported by: FRANKY on 08/31/2024 3:56:00 PM. Reviewed, dictated and finalized at location Desiree PARRY
--- OUTSIDE RECORDS SUMMARY | 2024-08-31 15:39 | XMS_ITS | Continuity of Care Document ---
Author Organization [facility] Address [address] [place] [address] Phone Care Team Providers Care Billing Machine Operator Name Role Phone Jim OD, Bimal Unavailable Unavailable Advance Directives Directive Yes / No Effective Date File Name No Information Encounters Encounter Description Practice Location Reason(s) For Visit Diagnoses Date Provider Providers Copied on Encounter [facility], [address], [place], [place], [address], [place] tel:[phone] [facility] No Information Oct- 1-200 2 Jim OD Bimal. [address] , [address], [place], [address], [place]. tel:[phone] Family History Family Member Type Diagnosis Age At Onset No Information Payers Payer name Insurance type Covered republican ID Authoriza tion(s) No Information Social History [...]
--- OUTSIDE RECORDS SUMMARY | 2024-08-31 15:40 | XMS_ITS | Encounter Summary ---
Author Organization [facility] Address [address] [facility] [address] Care Team Providers Care Deputy Sheriff Generalist/Bailiff Name Role Phone Ariella Montaño MD Primary Care Provider [phone] Encounter Details Date Type Department Care Team (Late Contact Info) Description 12/17/2022 Lab Requisition [facility] [address] [place] [phone] Lance Fan MD [address] [place], [place] [id number] Social History Tobacco Use Types Packs/Day Years [...] [address] [place] [address] Librado Peña MD [address] [facility] [address] [place] [address] documented as of this encounter Procedures Procedure Name Priority Date/Time Associated Diagnosis Comments DERMATOPATHOLOGY Routine 12/15/2022 12:0 0 AM CDT documented in this encounter Results * DERMATOPATHOLOGY (12/15/2022 12:00 AM CDT) Case Report Dermatopathology Report ? Case: [id number] ? Authorizing Provider: ??Lance Fan MD ?Collected: ? 12/15/2022 12:00 AM ? Ordering Location: ? [facility] DermPath Lab ? Received: ?12/17/2022 08:12 [...] specimen consists of a punch biopsy measuring 38v2j1wk and it is bisected (the tissue appears [...] characteristic determined by the Dermatopathology Laboratory at [facility], directed by Dr. Stacie Carbajal. These tests need not be, and therefore are not, approved by the [place] Food and Drug Administration. The tests are used for clinical purposes. Billing Codes Specimen Charges Stain Charges 46773 1 3 4:58 PM CDT DERMATOPATHOLOGY LABORATORY Embedded Images 3 4:58 PM CDT DERMATOPATHOLOGY LABORATORY Pathology/Cytolog y TISSUE SPECIMEN FROM SKIN / Unknown 12/15/2022 12/17/2022 8:12 AM CDT Lance Fan MD LAB - PATHOLOGY/CYTO LOGY ORDERABLES DERMATOPATHOLOGY LABORATORY [facility] - Department of Dermatology [facility] Medicine [address] [place] [address], [address] [phone] documented in this encounter Visit Diagnoses Not on filedocumented in this encounter Care Teams Deputy Sheriff Generalist/Bailiff Relationship Specialty Start Date End Date Ariella Montaño MD [address] [place] [address] PCP - General 08/31/21 documented as of this encounter
--- OUTSIDE RECORDS SUMMARY | 2024-08-31 15:40 | XMS_ITS | Referral Summary ---
Author Organization [address] Address [address] [place] [address] Care Team Providers Care Scourer Name Role Phone Ariella Montaño MD Primary Care Provider [phone] Allergies No known active allergies Medications hydroCHLOROthiazid e 12.5 mg tablet 10/27/2023 Ac tive lisinopriL (PRINIVIL,ZESTRIL) 5 mg tablet 10/27/2023 Active potassium chloride ER 10 mEq CR capsule 10/27/2023 Active testosterone, bulk, powder 1 11/12/2023 Active Active Problems No known active problems Social History Tobacco Use Types Packs/Day Years Used Date Smoking Tobacco: Never Assessed Personal Safety Answer Date Recorded Getting School Help Needed Not on file 12/09 Comments Unknown Sex and Gender Information Value Date Recorded Sex Assigned at Not on file Legal Sex Female 8:17 AM CDT Gender Identity Not on file Sexual Orientation Not on file Last Filed Vital Signs Vital Sign Reading Time Taken Comments Blood Pressure 110/72 12/10/2023 9:07 AM CDT Pulse 102 12/10/2023 9:07 AM CDT Temperature 37.1 ??C (98.7 ??F) 12/10/2023 9:07 AM CD T Respiratory Rate 20 12/10/2023 9:07 AM CDT Oxygen Saturation 98% 12/10/2023 9:07 AM CDT Inhaled Oxygen Concentration - - Weight 86.2 kg (190 lb) 12/10/2023 9:07 AM CDT Height 154.9 cm (5' 1 ) 12/10/2023 9:07 AM CDT Body Mass Index 35.9 12/10/2023 9:07 AM CDT Plan of Treatment Not on file Insurance [employer] [place] Care Teams Scourer Relationship Specialty Start Date End Date Ariella Montaño MD PCP - General Family Medicine 12/10/23
--- OUTSIDE RECORDS SUMMARY | 2024-08-31 15:40 | XMS_ITS | Encounter Summary ---
Author Organization [facility] Address [address] [place] [address] Care Team Providers Care Armature Winder Repair Name Role Phone Ariella Montaño MD Primary Care Provider [phone] Encounter Details Date Type Department Care Team (Late Contact Info) Description 08/05/2022 Lab Requisition [facility] [address] [facility] [place] [phone] Lance Fan MD [address] [place] [address] Social History Tobacco Use Types [...] [address] [place] [address] Librado Peña MD [address] [place] [address] documented as of this encounter Procedures Procedure Name Priority Date/Time Associated Diagnosis Comments DERMATOPATHOLOGY Routine 08/04/2022 12:0 0 AM ELECTRONEURODIAGNOSTIC TECHNOLOGIST documented in this encounter Results * DERMATOPATHOLOGY (08/04/2022 12:00 AM ELECTRONEURODIAGNOSTIC TECHNOLOGIST) Case Report Dermatopathology Report ? Case: [id number] ? Authorizing Provider: ??Lance Fan MD ?Collected: ? 08/04/2022 12:00 AM ? Ordering Location: ? [facility] DermPath Lab ?Received: ?08/05/2022 02:07 PM ? Pathologist: ? Danyell Martinez MD ? Specimens: ?? A) - Skin, right ala ? B) - Skin, left side nose ? C) - Skin, sup nose ? D) - Skin, left nasal bulb ? 3 12:26 PM [facility] DERMATOPATHOLOGY LABORATORY Final Diagnosis Specimen A. SKIN, right ala: BASAL CELL CARCINOMA, NODULAR TYPE (C44.311) (see microscopic description) Specimen B. SKIN, left side nose: BASAL CELL CARCINOMA, NODULAR TYPE (C44.311) Specimen C. SKIN, sup nose: BASAL CELL CARCINOMA, NODULAR TYPE (C44.311) Specimen D. SKIN, left nasal bulb: BASAL CELL CARCINOMA, NODULAR TYPE (C44.311) 3 12:26 PM [facility] DERMATOPATHOLOGY LABORATORY Clinical History A-D: BCC 3 12:26 PM [facility] DERMATOPATHOLOGY LABORATORY Gross Description Specimen A: [...] 4x3x1 mm. Jar 0. 3 12:26 PM [facility] DERMATOPATHOLOGY LABORATORY Microscopic Description Specimen A. [...] ratio and peripheral palisading. 3 12:26 PM [facility] DERMATOPATHOLOGY LABORATORY Disclaimer An external and internal positive and negative controls are appropriate for the histochemical, immunohistochemical and immunofluorescence stain(s) in this case (if any), except where stated explicitly. The performance characteristics of the stain(s) cited in this report were developed and its performance characteristic determined by the Dermatopathology Laboratory at [facility], directed by Dr. Stacie Carbajal. These tests need not be, and therefore are not, approved by the [place] Food and Drug Administration. The tests are used for clinical purposes. Billing Codes Specimen Charges Stain Charges 22406 85624 86516 73878 1 1 1 1 3 12:26 PM ELECTRONEURODIAGNOSTIC TECHNOLOGIST DERMATOPATHOLOGY LABORATORY Embedded Images 3 12:26 PM ELECTRONEURODIAGNOSTIC TECHNOLOGIST DERMATOPATHOLOGY LABORATORY Pathology/Cytology TISSUE SPECIMEN FROM SKIN / Unknown 08/04/2022 08/05/2022 2:07 PM ELECTRONEURODIAGNOSTIC TECHNOLOGIST Miscellaneous samples (specimen) TISSUE SPECIMEN FROM SKIN / Unknown 08/04/2022 08/05/2022 2:07 PM ELECTRONEURODIAGNOSTIC TECHNOLOGIST Miscellaneous samples (specimen) TISSUE SPECIMEN FROM SKIN / Unknown 08/04/2022 08/05/2022 2:07 PM ELECTRONEURODIAGNOSTIC TECHNOLOGIST Miscellaneous samples (specimen) TISSUE SPECIMEN FROM SKIN / Unknown 08/04/2022 08/05/2022 2:07 PM ELECTRONEURODIAGNOSTIC TECHNOLOGIST Lance Fan MD LAB - PATHOLOGY/CYTO LOGY ORDERABLES DERMATOPATHOLOGY LABORATORY [facility] - Department of Dermatology [address], [address] [phone] documented in this encounter Visit Diagnoses Not on filedocumented in this encounter Care Teams Armature Winder Repair Relationship Specialty Start Date End Date Bird, Ariella S, MD [address] [place] [address] PCP - General 08/31/21 documented as of this encounter
--- OUTSIDE RECORDS SUMMARY | 2024-08-31 15:40 | XMS_ITS | Clinical Summary ---
Author Organization [facility] Address [address] [place] [address] Phone Care Team Providers Care Optical Instruments Supervisor Name Role Phone Ariella Montaño MD Primary Care Provider [phone] Allergies Active Allergy Reactions Criticality Noted Date Comments Codeine Nausea and Vomiting Low 09/08/2010 Medications estradiol (ESTRACE) 1 mg tablet Take 1 mg by mouth daily. Active flu vaccine quadrivalent 2019-, 6 mo+,,PF, (Flulaval Quad 0916-7187, PF,) 60 mcg (15 mcg x 4)/0.5 mL Syringe syringe TO BE ADMINISTERED BY A PHARMACIST 0.5 mL 09/06/2020 10:57 AM SHOOTING GALLERY OPERATOR Active Active Problems Patient Care Coordination No te Formatting of this note migh t be different from the original. Primary Care: Amari Jenkins MD Referring Provider: Yulissa Bunn MD [address] [facility] [address] [place] [address] Other: Dr Amna Glez Problem Noted Date Diagnosed Date Diffuse cystic mastopathy 05/16/2012 Resolved Problems Problem Noted Date Diagnosed Date Resolved Date Abnormal mammogram 09/08/2010 6 Encounters Date Type Department Care Team Description 08/22/2024 External Device Data STL ABSTRACTION Provider, Abstract 08/08/2024 External Device Data STL ABSTRACTION Provider, Abstract 07/12/2024 Refill [facility] Primary Care [place] [address] [place] [address] Connie Bull PA 05/31/2024 External Device Data STL ABSTRACTION Provider, Abstract from Last 3 Months Immunizations Immunization Administration Dates Next Due INFLUENZA VACCINE QUADRIVALENT [...] = 0.6 oz pur e alcohol) rarely Comments No Sex and Gender Information Value Date Recorded Sex Assigned at Not on file Legal Sex Female 5:59 AM SHOOTING GALLERY OPERATOR Gender Identity Not on file Sexual Orientation Not on file Occupation Industry Job Start Date Job End Date Not on file Not on file Not on file Not on file Last Filed Vital Signs Vital Sign Reading Time Taken Comments Blood Pressure 114/73 06/08/2016 12:48 PM SHOOTING GALLERY OPERATOR Pulse 68 06/08/2016 12:48 PM SHOOTING GALLERY OPERATOR Temperature - - Respiratory Rate - - Oxygen Saturation - - Inhaled Oxygen Concentration - - Weight 78.8 kg (173 lb 12.8 oz) 016 12:48 PM SHOOTING GALLERY OPERATOR Height 154.9 cm (5' 1 ) 06/08/2016 12:4 8 PM SHOOTING GALLERY OPERATOR Body Mass Index 32.84 06/08/2016 12:48 PM SHOOTING GALLERY OPERATOR Plan of Treatment Upcoming Encounters Date Type Department Care Team (Late st Contact Info) Description 10/09/2024 1:30 PM CDT Appointment [facility] [address] [place] [phone] Ariella Montaño MD [address] [place] [address] Health Maintenance Due Date Last [...] OR WO CAD Routine 10/08/2023 11:12 AM SHOOTING GALLERY OPERATOR Visit for screening mammogram from Last 3 Months or Most Recently Relevant to Health Maintenance Results * MAMMO 3D ADÁN SCREEN BILAT W OR WO CAD (10/08/2023 11:12 AM SHOOTING GALLERY OPERATOR) Anatomical Region Laterality Modality Breast Bilateral Mammography 10/08/2023 11:1 2 AM SHOOTING GALLERY OPERATOR Impressions 10/08/2023 1:43 PM SHOOTING GALLERY OPERATOR IMPRESSION: No suspicious findings to suggest malignancy in either breast. Annual mammography is recommended. ?? OVERALL FINAL ASSESSMENT: ??BI-RADS CATEGORY 2: Benign findings Narrative 10/08/2023 1:43 PM SHOOTING GALLERY OPERATOR BILATERAL SCREENING DIGITAL MAMMOGRAM WITH 3D TOMOSYNTHESIS AND CAD DATE: 10/08/2023 11:12 AM HISTORY: Routine screening. DICTATION LOCATION: ??[facility] TECHNIQUE: Full-field digital craniocaudal and mediolateral oblique [...] 11:12 AM HISTORY: Routine screening. [facility] [place] TECHNIQUE: Full-field digital craniocaudal and mediolateral oblique [...] Benign findings Ariella Montaño MD MAMMO ORDERABLES Final Result from Last 3 Months or Most Recently Relevant to Health Maintenance Insurance [facility] [address] BLUE ACCESS CHOICE [employer] Commercial Care Teams Optical Instruments Supervisor Relationship Specialty Start Date End Date Ariella Montaño MD [address] [place] [address] PCP - General Family Practice 08/22/21
--- OUTSIDE RECORDS SUMMARY | 2024-08-31 15:40 | XMS_ITS | Clinical Summary ---
Author Organization [address] Address [address] [place] [address] Care Team Providers Care Shredder Operator Name Role Phone Ariella Montaño MD Primary Care Provider [phone] Allergies No known active allergies Medications hydroCHLOROthiazid [...] 12/10/2023 9:07 AM CDT Plan of Treatment Health Maintenance Due Date Last Done Comments Breast Cancer Screening-Mammogram 1966 Cervical Cancer Screening 1966 Colon Cancer Screening-Colonoscopy 1966 Depression Screening 1966 Hepatitis C Screening 1966 Hepatitis B Screening 01/04/1984 Regular Well Visit/Exam 18-64 01/04/1984 Zoster Vaccine (1 of 2) 01/04/2016 Covid-19 Vaccine (2 - 2023-2 5 season) 2024 10/10/2020 Influenza Vaccine (#1) 2024 3, 09/06/2020, 05/03/2018 DTaP/Tdap/Td Vaccine (3 - Td or Tdap) 05/03/2028 05/03/2018, 01/06/2008 Pneumococcal vaccine <65 Aged Out No longer eligible based on patient's age to complete this topic Insurance [employer] [place] Care Teams Shredder Operator Relationship Specialty Start Date End Date Ariella Montaño MD PCP - General Family Medicine 12/10/23
--- OUTSIDE RECORDS SUMMARY | 2024-08-31 15:40 | XMS_ITS | Patient Health Summary ---
Author Organization [facility] Address [address] [facility] [place] [address] Care Team Providers Care Conservation Scientist Name Role Phone Ariella Montaño MD Primary Care Provider [phone] Note from [facility],non-owned Affiliates and Associated Physician Practices is amultiple site organization consisting of ambulatory clinics and hospital sitesin [place], [place] and [place]. This disclosure is being madepursuant to the Care Everywhere program and may not contain all information available regarding this patient. Last updated 18.[facility] Allergies * Codeine(Nausea and/or Vomiting) Medications [...] daily * Cholecalciferol (VITAMIN D3) 1.25 MG (42658 UT) capsule Take 1 (one) capsule by [...] final defect: muscle Previous dermpath accession #: [id number] D Repair type: Dr. Mariana Choe accession [...] eyelids, eyebrows, nose, lips, chin, ear, periauricular, hoahaoism, genitalia, hands, feet, ankles, nail units and [...] confirmed by the patient. All components of Parker Protocol/PAUSE Rule completed. STAGE I: The patient [...] sections examined. No additional histologic findings appreciated. [facility] CLIA # [id number] Mohs Mechanical Inspector: MD Dr. Mariana Khan to do repair. Dr. Chavarria performed the entire surgery, and documentation used to initiate this operative report. I entered the information in our [employer] DocFlowsheet with the information provided by Dr. Chavarria on her handwritten, paper format, surgical worksheet, which was then used to initiate the create of this note. Dr. Chavarria then reviewed and edited the note as needed to complete the note. Leighann Odom NETWORK SECURITY CONSULTANT I have reviewed the note, edited it as necessary and performed the entire procedure. Shasha Chavarria MD Motion Picture Equipment Supervisor 12/30/2022 Shasha Chavarria MD PROCEDURE/MINOR SURG ICAL [...] final defect: dermis Previous dermpath accession #: [id number] C Repair type: Dr. Mariana Choe accession [...] eyelids, eyebrows, nose, lips, chin, ear, periauricular, hoahaoism, genitalia, hands, feet, ankles, nail units and [...] confirmed by the patient. All components of Parker Protocol/PAUSE Rule completed. STAGE I: The patient [...] sections examined. No additional histologic findings appreciated. [facility] CLIA # [id number] Mohs Mechanical Inspector: MD Dr. Mariana Khan to do repair. Dr. Chavarria performed the entire surgery, and documentation used to initiate this operative report. I entered the information in our [employer] DocFlowsheet with the information provided by Dr. Chavarria on her handwritten, paper format, surgical worksheet, which was then used to initiate the create of this note. Dr. Chavarria then reviewed and edited the note as needed to complete the note. Leighann Odom NETWORK SECURITY CONSULTANT I have reviewed the note, edited it as necessary and performed the entire procedure. Shasha Chavarria MD Motion Picture Equipment Supervisor 12/30/2022 Shasha Chavarria MD PROCEDURE/MINOR SURG ICAL [...] final defect: adipose Previous dermpath accession #: [id number] Repair type: Dr. Mariana Choe accession [...] eyelids, eyebrows, nose, lips, chin, ear, periauricular, hoahaoism, genitalia, hands, feet, ankles, nail units and [...] confirmed by the patient. All components of Parker Protocol/PAUSE Rule completed. STAGE I: The patient [...] Inflammation obscuring possible tumor presence: Not Present [place] [facility] CLIA # [id number] Mohs laboratory geneticist: MD Dr. Mariana Khan to do repair. Dr. Chavarria performed the entire surgery, and documentation used to initiate this operative report. I entered the information in our [employer] DocFlowsheet with the information provided by Dr. Chavarria on her handwritten, paper format, surgical worksheet, which was then used to initiate the create of this note. Dr. Chavarria then reviewed and edited the note as needed to complete the note. Leighann Odom NETWORK SECURITY CONSULTANT I have reviewed the note, edited it as necessary and performed the entire procedure. Shasha Chavarria MD Motion Picture Equipment Supervisor 12/30/2022 Shasha Chavarria MD PROCEDURE/MINOR SURG ICAL [...] final defect: adipose Previous dermpath accession #: [id number] Repair type: second intent Mohs accession [...] eyelids, eyebrows, nose, lips, chin, ear, periauricular, hoahaoism, genitalia, hands, feet, ankles, nail units and [...] confirmed by the patient. All components of Parker Protocol/PAUSE Rule completed. STAGE I: The patient [...] Inflammation obscuring possible tumor presence: Not Present [place] [facility] CLIA # [id number] [facility] geneticist: MD Dr. Mariana Khan to do repair. [...] needed to complete the note. Leighann Odom NETWORK SECURITY CONSULTANT I have reviewed the note, edited it as necessary and performed the entire procedure. Shasha Chavarria MD Motion Picture Equipment Supervisor 12/30/2022 Shasha Chavarria MD PROCEDURE/MINOR SURG ICAL ORDERABLES * DERMATOPATHOLOGY (12/15/2022 12:00 AM CDT) Only the most recent of5 resultswithin the time period is included. Case Report Dermatopathology Report ? Case: [id number] ? Authorizing Provider: ??Lance Fan MD ?Collected: ? 12/15/2022 12:00 AM ? Ordering Location: ? [facility] DermPath Lab ? Received: ?12/17/2022 08:12 AM [...] specimen consists of a punch biopsy measuring 66s3k1in and it is bisected (the tissue appears [...] characteristic determined by the Dermatopathology Laboratory at [facility], directed by Dr. Stacie Carbajal. These tests need not be, and therefore are not, approved by the [place] Food and Drug Administration. The tests are used for clinical purposes. Billing Codes Specimen Charges Stain Charges 22358 1 3 4:58 PM CDT DERMATOPATHOLOGY LABORATORY Embedded Images 3 4:58 PM CDT DERMATOPATHOLOGY LABORATORY Pathology/Cytolog y TISSUE SPECIMEN FROM SKIN / Unknown 12/15/2022 12/17/2022 8:12 AM CDT Lance Fan MD LAB - PATHOLOGY/CYTO LOGY ORDERABLES DERMATOPATHOLOGY LABORATORY [facility] Department of Dermatology [place] [id number] [facility], [address]rd Floor [address] [phone] * PA DESTRUCT BENIGN LESION, 1-14 (07/01/2021 5:21 PM COMMUNITY EDUCATOR) Narrative Shasha Chavarria MD - 07/01/2021 5:21 PM COMMUNITY EDUCATOR Shasha Chavarria MD ? 07/01/2021 ??5:22 PM [...] like-products in the last 2 weeks (including [id number] products). ?? Patient denies use of Accutane [...] performed the entire procedure. Shasha Chavarria MD Delivery Truck Driver Heavy Shasha Chavarria MD PROCEDURE/MINOR SURG ICAL ORDERABLES [...] The excised tissue was transported to the [facility] histology laboratory maintaining the tissue orientation. [...] Reconstruction: Complex Closure Primary Surgeon : Aura Shale Miner Surgeon : The patient was taken to [...] performed the entire procedure. Shasha Chavarria MD Delivery Truck Driver Heavy Shasha Chavarria MD PROCEDURE/MINOR SURG ICAL ORDERABLES Care Teams Conservation Scientist Relationship Specialty Start Date End Date Ariella Montaño MD [address] [place] [address] PCP - General 08/31/21
--- OUTSIDE RECORDS SUMMARY | 2024-08-31 15:40 | XMS_ITS | Encounter Summary ---
Author Organization [facility] Address [address] [place] [address] Care Team Providers Care Electrician Sound Name Role Phone Amari Jenkins MD Primary Care Provider [phone] Ariella Montaño MD Primary Care Provider [phone] Encounter Details Date Type Department Care Team (Late Contact Info) Description 04/11/2020 Lab Requisition [facility] [address] [facility] [place] [address] Lance Fan MD [address] [place] [address] Social History Tobacco Use Types [...] - ENT [address] , [address] [id number] Librado Peña MD [address] [facility] [address] [place] [address] documented as of this encounter Procedures Procedure Name Priority Date/Time Associated Diagnosis Comments DERMATOPATHOLOGY Routine 04/10/2020 12:0 0 AM CDT documented in this encounter Results * DERMATOPATHOLOGY (04/10/2020 12:00 AM CDT) Case Report Dermatopathology Report ? Case: [id number] ? Authorizing Provider: ??Lance Fan MD ?Collected: ? 04/10/2020 12:00 AM ? Ordering Location: ? [facility] ?Received: ?04/11/2020 11:17 AM ? [...] specimen consists of a shave biopsy measuring [id number]. Jar 0. 0 1:26 PM CDT DERMATOPATHOLOGY [...] characteristic determined by the Dermatopathology Laboratory at [facility], directed by Dr. Stacie Carbajal. These tests need not be, and therefore are not, approved by the [place] Food and Drug Administration. The tests are used for clinical purposes. Billing Codes Specimen Charges Stain Charges 32761 1 0 1:26 PM CDT DERMATOPATHOLOGY LABORATORY Embedded Images 0 1:26 PM CDT DERMATOPATHOLOGY LABORATORY Pathology/Cytolog y TISSUE SPECIMEN FROM SKIN / Unknown 04/10/2020 04/11/2020 11:17 AM CDT Lance Fan MD LAB - PATHOLOGY/CYTO LOGY ORDERABLES DERMATOPATHOLOGY LABORATORY [facility] - Department of Dermatology [facility] Medicine [address] [place] [address], [address]rd Floor [address] [phone] documented in this encounter Visit Diagnoses Not on filedocumented in this encounter Care Teams Electrician Sound Relationship Specialty Start Date End Date Amari Jenkins MD [address] [place] [address] PCP - General 04/11/20 08/30/21 Ariella Montaño MD [address] [place] [address] PCP - General 08/31/21 documented as of this encounter
--- OUTSIDE RECORDS SUMMARY | 2024-08-31 15:40 | XMS_ITS | Referral Summary ---
Author Organization [facility] Address [address] [facility] [place] [address] Care Team Providers Care Head Of Operation And Logistics Name Role Phone Ariella Montaño MD Primary Care Provider Source Comments [facility],non-owned Affiliates and Associated Physician Practices is amultiple site organization consisting of ambulatory clinics and hospital sitesin [place], [place], [place] and [place]. This disclosure is being madepursuant to the Care Everywhere program and may not contain all information available regarding this patient. Last updated 18.[facility] Allergies Active Allergy Reactions Criticality Noted Date [...] daily Active Cholecalciferol (VITAMIN D3) 1.25 MG (35444 UT) capsule Take 1 (one) capsule by [...] - ENT [address] , [facility] [address] [place] [address] Librado Peña MD [address] [facility] [address] [place] [address] Care Teams Head Of Operation And Logistics Relationship Specialty Start Date End Date Ariella Montaño MD [address] [place] [address] PCP - General 08/31/21
--- OUTSIDE RECORDS SUMMARY | 2024-08-31 15:40 | XMS_ITS | Clinical Summary ---
Author Organization [facility] Address [address] [facility] [place] [address] Care Team Providers Care Glass Glazier Name Role Phone Ariella Montaño MD Primary Care Provider Source Comments [facility],non-owned Affiliates and Associated Physician Practices is amultiple site organization consisting of ambulatory clinics and hospital sitesin [place], [place], [place] and [place]. This disclosure is being madepursuant to the Care Everywhere program and may not contain all information available regarding this patient. Last updated 18.[facility] Allergies Active Allergy Reactions Criticality Noted Date [...] daily Active Cholecalciferol (VITAMIN D3) 1.25 MG (61699 UT) capsule Take 1 (one) capsule by [...] - ENT [address] , [facility] [address] [place] [address] Librado Peña MD [address] [facility] [address] [place] [address] Health Maintenance Due Date Last Done Comments [...] of 3 - 19+ 3-dose series) 1985 PNEUMOCOCCAL VACCINE 50+ (1 of 1 - PCV) 01/04/2016 ZOSTER VACCINE (1 of 2) 01/04/2016 COVID-19 VACCINE (1 - 2023- season) 2024 INFLUENZA VACCINE (#1) 2024 09/06/2020, 2014 DEPRESSION SCREENING 08/02/2024 MAMMOGRAM 10/07/2025 10/08/2023, 03/2024, 09/07/2022, Additional history exists HIB VACCINE Aged Out No longer eligi ble based on patient's age to complete this topic HPV VACCINE Aged Out No longer eligi ble based on patient's age to complete this topic MENINGOCOCCAL (Group B) VACCINE Aged Out No longer eligible based on patient's age to complete this topic MENINGOCOCCAL VACCINE Aged Out No radha devang eligible based on patient's age to complete this topic PNEUMOCOCCAL VACCINE Aged Out No long er eligible based on patient's age to complete this topic Care Teams Glass Glazier Relationship Specialty Start Date End Date Ariella Montaño MD [address] [place] [address] PCP - General 08/31/21
== END 2024-08-31 15:13 | disposition home or self-care (01) ==
PROVIDERS: PCP Family Medicine; Visit Provider Student in an Organized Health Care Education/Training Program
DX: Z78.0 Asymptomatic menopausal state (principal)
CPT/HCPCS: 77080